=== PATIENT | male | born 1945 | race Caucasian/White ===

== ENCOUNTER 2016-05-12 20:26 | Emergency (ER) | payer MEDICARE, OTHER ==
[~2016-05-12] VITALS: Ht 182.9 cm; Wt 89.8 kg
[~2016-05-12 20:26] MED LIST: ACIPHEX; C250T; CLD600T; CYCL10TA9 PO; CYTOTEC; E400C; FENO160T PO; GLUCOSAMINE; HYDR-707 PO; HYZAAR; LEVO1CAP3 PO; LISI1TAB10 PO; LISI20TA PO; LISIN; MELO7.5T; METR500T PO; MULT-974 PO; MULT1TAB63; OMEP20CA12 PO; ONDA8TAB9 PO; OXYC-12 PO; PANT40TA2 PO; PNT40TEC PO; PRILOSEC; RIVA20TA PO; TMSL.4C PO; [UNRECOGNIZED DRUG - OTHER]; [UNRECOGNIZED DRUG - OTHER]
[2016-05-12 21:30] LABS: BILIRUBIN,URINE NEGATIVE (NEGATIVE); KETONES,URINE NEGATIVE (NEGATIVE); LEUKOCYTE ESTERASE ,URINE NEGATIVE (NEGATIVE); NITRITE,URINE NEGATIVE (NEGATIVE); PH,URINE 6 (5-9); PROTEIN,URINE NEGATIVE (NEGATIVE); UROBILINOGEN,URINE NORMAL (NORMAL)
[2016-05-12 21:32] LABS: BASOPHILS # (AUTO) 0.1 10^3/uL (0.0-0.1); BASOPHILS % (AUTO) 1 % (0-10); EOSINOPHILS # (AUTO) 0.2 10^3/uL (0.0-0.3); EOSINOPHILS % (AUTO) 3 % (0-10); LYMPHOCYTES # (AUTO) 2.2 X 10^3 (1.0-4.0); LYMPHOCYTES % (AUTO) 26 % (12-44); MEAN CORPUSCULAR HEMOGLOBIN 32 PG (25-34); MEAN CORPUSCULAR HGB CONC 35 G/DL (32-36); MEAN CORPUSCULAR VOLUME 93 FL (80-99); MEAN PLATELET VOLUME 9.5 FL (7.4-10.4); MONOCYTES # (AUTO) 0.7 X 10^3 (0.0-1.0); MONOCYTES % (AUTO) 8 % (0-12); NEUTROPHILS # (AUTO) 5.2 X 10^3 (1.8-7.8); NEUTROPHILS % (AUTO) 62 % (42-75); PLATELET COUNT 248 10^3/uL (130-400); RED BLOOD COUNT 4.17 10^6/uL (4.35-5.85); RED CELL DISTRIBUTION WIDTH 12.7 % (10.0-14.5); WHITE BLOOD COUNT 8.4 10^3/uL (4.3-11.0)
--- NOTE | 2016-05-12 21:36 | Diagnostic Imaging Report ---
INDICATION: Hypertension. EXAMINATION: PA and lateral chest. FINDINGS: Heart size and pulmonary vascularity are normal. Lungs are clear. There are no effusions or pneumothoraces. IMPRESSION: Negative chest. Dictated by: Dictated on workstation # [id number]
[2016-05-12 21:48] LABS: ALANINE AMINOTRANSFERASE 20 U/L (0-55); ANION GAP 10 MMOL/L (5-14); ASPARTATE AMINO TRANSFERASE 20 U/L (5-34); BILIRUBIN,TOTAL 0.3 MG/DL (0.1-1.0); BLOOD UREA NITROGEN 21 MG/DL (7-18); BUN/CREATININE RATIO 19; CALCIUM 9.3 MG/DL (8.5-10.1); CARBON DIOXIDE 23 MMOL/L (21-32); CHLORIDE 104 MMOL/L (98-107); CREATININE SERUM 1.11 MG/DL (0.60-1.30); GFR ESTIMATED > 60; GLUCOSE 110 MG/DL (70-105); MAGNESIUM 2.2 MG/DL (1.8-2.4); POTASSIUM 3.9 MMOL/L (3.6-5.0); SODIUM 137 MMOL/L (135-145); TOTAL PROTEIN 6.6 G/DL (6.4-8.2)
[2016-05-12 21:49] LABS: WBC,URINE RARE /HPF
[2016-05-12 21:54] LABS: TROPONIN I < 0.30 NG/ML (<0.30)
--- NOTE | 2016-05-12 21:56 | ED Cardiac General ---
History of Present Illness General Chief Complaint: Cardiac/General Problems Stated Complaint: BLOOD PRESSURE Nursing Triage Note: PT TO ED 8 W/ C/O HIGH BLOOD PRESSURE. REPORTS ACCORDING TO HIS MONITOR AT HOME IT WAS IN THE 150'S OVER 100'S. PT ALSO REPORTS "DULL"OCASIO ONSET LAST NOC. NO OTHER C/O, DENIES CP, SOB AT THIS TIME Source: patient Exam Limitations: no limitations History of Present Illness Time seen by provider: 20:38 Initial Comments This 71-year-old gentleman presents to the emergency room with complaints as outlined by nursing staff above. He had some chest pain yesterday but none today. He has had some dizziness and lightheadedness. Neuro exam is unremarkable. He reports some headache at the posterior base of the skull yesterday which now has improved. Now the area feels numb. Symptoms have been present for 3-4 days. During initial assessment blood pressure was evaluated by this provider. Bilateral upper extremity blood pressures were in the range of 110s/80s-90s. There is no change with standing. Allergies and Home Medications Allergies Coded Allergies: Penicillins (Verified Allergy, Unknown, 09/05/06) clindamycin (Verified Allergy, Unknown, 05/12/16) sulfamethoxazole (Unverified Allergy, Unknown, 06/17/13) trimethoprim (Unverified Allergy, Unknown, 06/17/13) Home Medications Doxycycline Hyclate 100 Mg Tablet, 100 MG PO BID, #20 Prescribed by: ALEX AMAYA on 05/12/16 2230 Fenofibrate 160 Mg Tablet, 160 MG PO DAILY, (Reported) Hctz/Lisinopril 1 Tab Tablet, 1 TAB PO DAILY, (Reported) Meclizine HCl 12.5 Mg Tablet, 12.5 MG PO Q8H PRN for DIZZINESS, #10 Prescribed by: ALEX AMAYA on 05/12/16 2232 Multivitamin 1 Each Tablet, 1 TAB PO DAILY, (Reported) Ondansetron Hcl 8 Mg/Tab Tab.rapdis, 8 MG PO Q8H PRN for NAUSEA, (Reported) Pantoprazole Sodium 40 Mg Tablet.dr, 40 MG PO DAILY, (Reported) Rivaroxaban 20 Mg Tablet, 20 MG PO DAILY, (Reported) Review of Systems Constitutional: no symptoms reported EENTM: No Symptoms Reported Respiratory: No Symptoms Reported Cardiovascular: See HPI Gastrointestinal: No Symptoms Reported Genitourinary: No Symptoms Reported Musculoskeletal: no symptoms reported Skin: no symptoms reported Psychiatric/Neurological: See HPI Endocrine: No Symptoms Reported Past Pdgogfe-Zvpadv-Pcppwj Hx Patient Social History Alcohol Use: Denies Use Recreational Drug Use: No Smoking Status: Never a Smoker Recent Foreign Travel: No Contact w/Someone Who Travel: No Recent Infectious Disease Expo: No Recent Hopitalizations: Yes Immunizations Up To Date Tetanus Booster (TDap): Unknown Date of Pneumonia Vaccine: Oct 26, 2014 Date of Influenza Vaccine: Oct 26, 2014 Surgeries HX Surgeries: Yes (ORTHO, HERNIA REPAIR, BACK SURGERY, T&A) Surgeries: Abdominal, Adenoidectomy, Cardiac (Cardiac catheterization March 2015 demonstrating normal coronary arteries), Orthopedic, Tonsillectomy Respiratory Hx Respiratory Disorders: No Cardiovascular Hx Cardiac Disorders: Yes Cardiac Disorders: Deep Vein Thrombosis, Hypertension Neurological Hx Neurological Disorders: Yes (NEUROPATHY IN FEET) Reproductive System Hx Reproductive Disorders: No Genitourinary Hx Genitourinary Disorders: No Gastrointestinal Hx Gastrointestinal Disorders: Yes Gastrointestinal Disorders: Ulcer Musculoskeletal Hx Musculoskeletal Disorders: Yes Musculoskeletal Disorders: Arthritis, Back Injury Endocrine Hx Endocrine Disorders: No HEENT HX ENT Disorders: Yes HEENT Disorders: Cataract Loss of Vision: Denies Hearing Impairment: Bilateral Hearing Aide Cancer Hx Cancer: No Psychosocial Hx Psychiatric Problems: No Integumentary HX Skin/Integumentary Disorder: No Blood Transfusions Hx Blood Disorders: Yes (POOR CIRCULATION LOWER EXTREMITY) Adverse Reaction to a Blood Tr: No Family Medical History Significant Family History: Heart Disease, Diabetes, Other Conditions/Hx ( Parkinson's) Family Medial History: Family history: Cardiovascular disease 19 FATHER G8 BROTHER G8 SISTER Family history: Diabetes mellitus 19 FATHER Parkinson's disease 19 MOTHER No Family History of: Family history: Alzheimer's disease Physical Exam Vital Signs Capillary Refill : Less Than 3 Seconds General Appearance: No Apparent Distress, WD/WN HEENT: PERRL/EOMI, Normal ENT Inspection, Pharynx Normal, Other (Dental erosion to the root of a left lower tooth. Slight oozing of blood noted at this location.) Neck: Normal Inspection, Supple Respiratory: Lungs Clear, Normal Breath Sounds, No Accessory Muscle Use, No Respiratory Distress Cardiovascular: Regular Rate, Rhythm, No Edema, No Murmur Gastrointestinal: Normal Bowel Sounds, Non Tender, Soft Extremity: Normal Inspection, No Calf Tenderness, No Pedal Edema Neurologic/Psychiatric: Alert, Oriented x3, No Motor/Sensory Deficits, Normal Mood/Affect, parts sales representative II-XII Norm as Tested Skin: Normal Color, Warm/Dry Progress/Results/Core Measures Results/Orders Lab Results Laboratory Tests Test 05/12/16 20:46 05/12/16 21:27 Range/Units White Blood Count 8.4 4.3-11.0 10^3/uL Red Blood Count 4.17 L 4.35-5.85 10^6/uL Hemoglobin 13.5 13.3-17.7 G/DL Hematocrit 39 L 40-54 % Mean Corpuscular Volume 93 80-99 FL Mean Corpuscular Hemoglobin 32 25-34 PG Mean Corpuscular Hemoglobin Concent 35 32-36 G/DL Red Cell Distribution Width 12.7 10.0-14.5 % Platelet Count 248 130-400 10^3/uL Mean Platelet Volume 9.5 7.4-10.4 FL Neutrophils (%) (Auto) 62 42-75 % Lymphocytes (%) (Auto) 26 12-44 % Monocytes (%) (Auto) 8 0-12 % Eosinophils (%) (Auto) 3 0-10 % Basophils (%) (Auto) 1 0-10 % Neutrophils # (Auto) 5.2 1.8-7.8 X 10^3 Lymphocytes # (Auto) 2.2 1.0-4.0 X 10^3 Monocytes # (Auto) 0.7 0.0-1.0 X 10^3 Eosinophils # (Auto) 0.2 0.0-0.3 10^3/uL Basophils # (Auto) 0.1 0.0-0.1 10^3/uL Sodium Level 137 135-145 MMOL/L Potassium Level 3.9 3.6-5.0 MMOL/L Chloride Level 104 98-107 MMOL/L Carbon Dioxide Level 23 21-32 MMOL/L Anion Gap 10 5-14 MMOL/L Blood Urea Nitrogen 21 H 7-18 MG/DL Creatinine 1.11 0.60-1.30 MG/DL Estimat Glomerular Filtration Rate > 60 BUN/Creatinine Ratio 19 Glucose Level 110 H 70-105 MG/DL Calcium Level 9.3 8.5-10.1 MG/DL Magnesium Level 2.2 1.8-2.4 MG/DL Total Bilirubin 0.3 0.1-1.0 MG/DL Aspartate Amino Transf (AST/SGOT) 20 5-34 U/L Alanine Aminotransferase (ALT/SGPT) 20 0-55 U/L Alkaline Phosphatase 45 40-136 U/L Troponin I < 0.30 <0.30 NG/ML Total Protein 6.6 6.4-8.2 G/DL Albumin 4.0 3.2-4.5 G/DL Urine Color YELLOW Urine Clarity CLEAR Urine pH 6 5-9 Urine Specific [place] 1.015 L 1.016-1.022 Urine Protein NEGATIVE NEGATIVE Urine Glucose (UA) NEGATIVE NEGATIVE Urine Ketones NEGATIVE NEGATIVE Urine Nitrite NEGATIVE NEGATIVE Urine Bilirubin NEGATIVE NEGATIVE Urine Urobilinogen NORMAL NORMAL MG/DL Urine Leukocyte Esterase NEGATIVE NEGATIVE Urine RBC (Auto) NEGATIVE NEGATIVE Urine RBC NONE /HPF Urine WBC RARE /HPF Urine Crystals NONE /LPF Urine Bacteria NEGATIVE /HPF Urine Casts NONE /LPF Urine Mucus NEGATIVE /LPF Urine Culture Indicated NO My Orders Orders - ALEX HOYOS MD Cbc With Automated Diff (05/12/16 21:20) Comprehensive Metabolic Panel (05/12/16 21:20) Magnesium (05/12/16 21:20) Troponin I (05/12/16 21:20) Ua Culture If Indicated (05/12/16 21:20) Saline Lock/Iv-Start (05/12/16 21:20) Ekg Tracing (05/12/16 21:20) Monitor-Rhythm Ecg Trace Only (05/12/16 21:20) Chest Pa/Lat (2 View) (05/12/16 21:20) Clindamycin Capsule (Cleocin Capsule) (05/12/16 22:30) Doxycycline Hyclate Tablet (Vibramycin T (05/12/16 22:30) Medications Given in ED Vital Signs/I&O Blood Pressure Mean: 111 Progress Note : Progress Note Workup was relatively unremarkable. Patient was dismissed home with improved blood pressure. He was advised to follow-up with his primary care provider and obtain a carotid ultrasound. Headache had subsided and he was in no significant pain at the time of dismissal. CT of the head was discussed as a possible further diagnostic tool as patient is on Xarelto. However, patient gives no history of head injury and symptoms are improving. CT was therefore not pursued. Patient was noted to have a significant dental erosion on the left lower jaw with some mild oozing of blood. This could certainly be a cause of infection, dizziness, and headache. He was advised to see a dentist as soon as possible. Antibiotic therapy was initiated. He was advised to skip his next Xarelto dose if bleeding does not stop by morning. ECG Initial ECG Impression Date: May 12, 2016 Initial ECG Impression Time: 20:38 Initial ECG Rate: 71 Initial ECG Rhythm: Normal Sinus Initial ECG Intervals: Normal Initial ECG Impression: Normal Comment Normal sinus rhythm with no ST elevation or depression. No abnormal intervals or axis deviation. Diagnostic Imaging Diagonstic Imaging: Xray Plain Films/CT/US/NM/MRI: chest Comments Chest x-ray viewed by me and report reviewed. See report below: NAME: KELLIE FLETCHER [facility] REC#: [id number] PT STATUS: REG ER : 1945 PHYSICIAN: ALEX HOYOS MD ADMIT DATE: 05/12/16/ER Draft Date of Exam:05/12/16 CHEST PA/LAT (2 VIEW) INDICATION: Hypertension. EXAMINATION: PA and lateral chest. FINDINGS: Heart size and pulmonary vascularity are normal. Lungs are clear. There are no effusions or pneumothoraces. IMPRESSION: Negative chest. Dictated on workstation # [id number] Dict: 05/12/162133 Trans: 05/12/162135 [facility] [id number] Interpreted by: MARIBELL SARKAR Departure Impression Impression: Primary Impression: Dizziness Additional Impressions: Hypertension Qualified Codes: I10 - Essential (primary) hypertension Dental erosion Oral bleeding Disposition: HOME, SELF-CARE Condition: Improved Departure-Patient Inst. Decision time for Depature: 22:27 Referrals: MARK MCFARLANE DO (PCP) Primary Care Physician REGGIE ESPANA (Family) Primary Care Physician Patient Instructions: High Blood Pressure (DC) Add. Discharge Instructions: Complete antibiotics as prescribed for your dental erosion. Follow-up with a dentist as soon as possible. If your tooth is still bleeding in the morning, skip Xarelto until bleeding stops. Return to care if bleeding becomes more severe. Follow-up with your primary care provider soon as possible for your dizziness and high blood pressure. Discuss obtaining a carotid ultrasound study with your primary care provider. Return to care with worsening or new symptoms. Return to care if you have a systolic blood pressure greater than 180 or diastolic blood pressure greater than 115. Avoid excessive salt or stimulants such as caffeine. Stay well-hydrated. Take Tylenol up to 1000 mg every 6 hours as needed for pain. You may try meclizine as prescribed for dizziness. All discharge instructions reviewed with patient and/or family. Voiced understanding. Scripts Meclizine HCl (Meclizine HCl) 12.5 Mg Tablet 12.5 MG PO Q8H Y for DIZZINESS, #10 TAB Prov: ALEX HOYOS MD 05/12/16 Doxycycline Hyclate (Doxycycline Hyclate) 100 Mg Tablet 100 MG PO BID, #20 TAB Prov: ALEX HOYOS MD 05/12/16 Copy Copies To 1: MARK MCFARLANE JOSHUA T MD May 12, 2016 21:56
[2016-05-12] MEDS ORDERED: DOXY100T2 PO (22:30)
[2016-05-12] MEDS ORDERED: DOXYCYCLINE 100 MG (VIBRAMYCIN) TABLET PO ONE (22:30)
[2016-05-12] MEDS ORDERED: CLINDAMYCIN 150 MG (CLEOCIN) CAP PO ONE (22:30)
[2016-05-12] MEDS ORDERED: MECL12.579 PO (22:32)
[2016-05-12 22:36] VITALS: BP 113/92
--- OUTSIDE RECORDS SUMMARY | 2016-06-05 09:59 | XMS REPORT ---
Author REGGIE Hinton [facility] eClinicalWorks Address Unknown Phone Unavailable Care Team Providers Care Spring Winder Name Role Phone REGGIE ESPANA CP Unavailable Allergies, Adverse Reactions, Alerts Substance Reaction Event Type Penicillin V Potassium Info Not Available Drug Allergy Clindamycin HCl Info Not Available Drug Allergy Bactrim DS Info Not Available Drug Allergy Problems Problem Type Condition Code Onset Dates Condition Status Problem GERD (gastroesophageal reflux disease) K21.9 Active Problem HTN (hypertension) I10 Active Problem Hypercholesterolemia E78.0 Active Problem Restless legs G25.81 Active Problem Chronic osteoarthritis M19.90 Active Problem BPH (benign prostatic hyperplasia) N40.0 Active Problem Superficial thrombosis of right lower extremity I82.811 Active Problem Muscle spasm of both lower legs M62.838 Active Problem Chest pain R07.9 Active Problem Varicose veins I86.8 Active Assessment Restless legs G25.81 Active Assessment Bronchitis J40 Active Problem PPV23 (PNEUMOVAX) DX V03.82 Active Problem ZOSTAVAX DX V05.8 Active Medications Medication Code System Code Instructions Start Date End Date Status Dosage Fenofibrate [facility] [address]-29 160 MG Orally Once a day 1 tablet with a meal Promethazine-Codeine [facility] [address]-31 6.25-10 MG/5ML Orally every 6 hrs Feb 24, 2015 5 ml as needed Azithromycin [facility] [address]-16 250 MG Orally Once a day Feb 24, 2015 Mar 01, 2015 2 tablets on the first day, then 1 tablet daily for 4 days Lisinopril-Hydrochlorothiazide [facility] [address]-48 20-25 MG Orally Once a day keep appt on 08/02/14 with [address] [facility] [address]-15 15 MG Orally 2 times a day Dec 22, 2014 1 tablet with food Mobic [facility] [address]-71 7.5 MG Orally 2 times a day Dec 21, 2014 Mar 21, [address] [facility] [address]-80 20 MG Orally Once a day [address] [facility] [address]-74 0.4 MG Orally Once a day April 29, 2015 1 capsule 30 minutes after the same meal each day Procedures Procedure Coding System Code Date Office Visit, Est Pt., Level 4 CPT-4 58978 Feb 24, 2015 DEPO MEDROL 40 MG/ML CPT-4 J1030 Feb 24, 2015 [facility] ESTABLISHED PATIENT CPT-4 G0467 Feb 24, 2015 DEXAMETHASONE 4MG/ML (PER 1 MG) CPT-4 J1100 Feb 24, 2015 THER/PROPH/DIAG INJ, SC/IM CPT-4 50362 Feb 24, 2015 Vital Signs Date/Time: Feb 24, 2015 Temperature 97.4 F Weight 201.8 lbs Height 72 in BMI 27.37 Index Blood Pressure Diastolic 78 mmHg Blood Pressure Systolic 122 mmHg Cardiac Monitoring Heart Rate 70 bpm Results No Known Results Summary Purpose eClinicalWorks Submission
--- OUTSIDE RECORDS SUMMARY | 2016-06-05 09:59 | XMS REPORT ---
Author Author REGGIE ESPANA [facility] eClinicalWorks Address Unknown Phone Unavailable Care Team Providers Care Search Marketing Specialist Name Role Phone REGGIE ESPANA CP Unavailable Allergies, Adverse Reactions, Alerts Substance Reaction Event Type Penicillin V Potassium Info Not Available Drug Allergy Clindamycin HCl Info Not Available Drug Allergy Bactrim DS Info Not Available Drug Allergy Problems Problem Type Condition Code Onset Dates Condition Status Problem Hypertrophy (benign) of prostate without urinary obstruction and other lower urinary tract symptoms [LUTS] 600.00 Active Problem Unspecified constipation 564.00 Active Problem Need for prophylactic vaccination and inoculation, Influenza V04.81 Active Problem PPV23 (PNEUMOVAX) DX V03.82 Active Problem Other specified pre-operative examination V72.83 Active Problem ZOSTAVAX DX V05.8 Active Problem Acute bronchitis 466.0 Active Problem Contact or exposure to other viral diseases V01.79 Active Problem Other abnormal blood chemistry 790.6 Active Problem Spasm of muscle 728.85 Active Problem Unspecified hearing loss 389.9 Active Problem Unspecified tinnitus 388.30 Active Problem Cough 786.2 Active Problem Chronic rhinitis 472.0 Active Problem Unspecified hemorrhoids without mention of complication 455.6 Active Problem Abdominal pain, unspecified site 789.00 Active Problem HTN (hypertension) I10 Active Problem Hypercholesterolemia E78.0 Active Problem Cramp of limb 729.82 Active Problem Unspecified local infection of skin and subcutaneous tissue 686.9 Active Problem Muscle spasm of both lower legs M62.838 Active Problem Other malaise and fatigue 780.79 Active Problem Essential hypertension 401.9 Active Problem Hypercholesterolemia 272.0 Active Problem GERD (gastroesophageal reflux disease) K21.9 Active Problem Needs flu shot Z23 Active Assessment HTN (hypertension) I10 Active Problem Dehydration 276.51 Active Assessment Muscle spasm of both lower legs M62.838 Active Problem Other and unspecified hyperlipidemia 272.4 Active Assessment GERD (gastroesophageal reflux disease) K21.9 Active Problem Solitary pulmonary nodule 793.11 Active Assessment Hypercholesterolemia E78.0 Active Problem Closed fracture of lumbar vertebra without mention of spinal cord injury 805.4 Active Problem Routine general medical examination at health care facility V70.0 Active Assessment Needs flu shot Z23 Active Problem Pain in joint, lower leg 719.46 Active Problem Open wound of finger(s), without mention of complication 883.0 Active Problem Esophageal reflux 530.81 Active Medications Medication Code System Code Instructions Start Date End Date Status Dosage Protonix [facility] [address]-81 20 MG Orally Once a day 2 tablets Flomax [facility] [address]-74 0.4 MG Orally Once a day April 29, 2015 1 capsule 30 minutes after the same meal each day Fenofibrate [facility] [address]-13 160 MG Orally Once a day 1 tablet with a meal Lisinopril-Hydrochlorothiazide [facility] [address]-16 20-25 MG Orally Once a day keep appt on 08/02/14 with 1 tablet Requip [facility] [address]-32 2 MG Orally Once a day Nov 18, 2014 1 tablet 1 to 3 hours before bedtime Procedures Procedure Coding System Code Date SINGLE IMMUNIZATION ADMIN CPT-4 77126 Nov 18, 2014 FLUZONE TRIV HIGH DOSE (65 & UP)-SANOFI PASTEUR-2014 CPT-4 17170 Nov 18, 2014 Vital Signs Date/Time: Nov 18, 2014 Temperature 97.6 F Weight 206 lbs Height 72 in BMI 27.94 Index Blood Pressure Diastolic 88 mmHg Blood Pressure Systolic 150 mmHg Cardiac Monitoring Heart Rate 78 bpm Results No Known Results Immunizations Vaccine Administration Date FLUZONE TRIV HIGH DOSE (65 & UP)-SANOFI PASTEUR-2014Nov 18, 2014 Summary Purpose eClinicalWorks Submission
--- OUTSIDE RECORDS SUMMARY | 2016-06-05 09:59 | XMS REPORT ---
Author Author REGGIE ESPANA [facility] eClinicalWorks Address Unknown Phone Unavailable Care Team Providers Care Acid Splicer Name Role Phone REGGIE ESPANA CP Unavailable Allergies No Known Allergies Problems Problem Type Condition Code Onset Dates Condition Status Problem PPV23 (PNEUMOVAX) DX V03.82 Active Problem Hypertrophy (benign) of prostate without urinary obstruction and other lower urinary tract symptoms [LUTS] 600.00 Active Problem Other specified pre-operative examination V72.83 Active Problem Need for prophylactic vaccination and inoculation, Influenza V04.81 Active Problem ZOSTAVAX DX V05.8 Active Problem Acute bronchitis 466.0 Active Problem Contact or exposure to other viral diseases V01.79 Active Problem Other abnormal blood chemistry 790.6 Active Problem Unspecified hearing loss 389.9 Active Problem Unspecified tinnitus 388.30 Active Problem Cough 786.2 Active Problem Chronic rhinitis 472.0 Active Problem Other malaise and fatigue 780.79 Active Problem Abdominal pain, unspecified site 789.00 Active Problem Hypercholesterolemia 272.0 Active Problem Unspecified hemorrhoids without mention of complication 455.6 Active Problem Muscle spasm of both lower legs M62.838 Active Problem HTN (hypertension) I10 Active Problem Solitary pulmonary nodule 793.11 Active Problem Cramp of limb 729.82 Active Problem Superficial thrombosis of right lower extremity I82.811 Active Problem Unspecified local infection of skin and subcutaneous tissue 686.9 Active Problem Needs flu shot Z23 Active Problem Essential hypertension 401.9 Active Problem Hypercholesterolemia E78.0 Active Problem GERD (gastroesophageal reflux disease) K21.9 Active Problem Other and unspecified hyperlipidemia 272.4 Active Problem Unspecified constipation 564.00 Active Problem Open wound of finger(s), without mention of complication 883.0 Active Problem Closed fracture of lumbar vertebra without mention of spinal cord injury 805.4 Active Problem Dehydration 276.51 Active Problem Pain in joint, lower leg 719.46 Active Problem Spasm of muscle 728.85 Active Problem Esophageal reflux 530.81 Active Problem Routine general medical examination at [facility] V70.0 Active Medications No Known Medications Results No Known Results Summary Purpose eClinicalWorks Submission
--- OUTSIDE RECORDS SUMMARY | 2016-06-05 09:59 | XMS REPORT ---
Author REGGIE Hinton [facility] eClinicalWorks Address Unknown Phone Unavailable Care Team Providers Care Authorization Representative Name Role Phone REGGIE ESPANA Unavailable Allergies, Adverse Reactions, Alerts Substance Reaction [...] Active Problem Varicose veins I86.8 Active Assessment Hypercholesterolemia E78.00 Active Assessment Chronic osteoarthritis M19.90 Active Assessment GERD (gastroesophageal reflux disease) K21.9 Active Assessment HTN (hypertension) I10 Active Assessment BPH (benign prostatic hyperplasia) N40.0 Active Problem PPV23 (PNEUMOVAX) DX V03.82 Active Assessment Superficial thrombosis of right lower extremity I82.811 Active Problem ZOSTAVAX DX V05.8 Active Medications Medication Code System Code Instructions Start Date End Date Status Dosage Xarelto [facility] [address]-61 15 MG Orally 2 times a day Dec 22, 2014 1 tablet with food Fenofibrate [facility] [address]-73 160 MG Orally Once a day 1 tablet with a meal Protonix [facility] [address]-58 20 MG Orally Once a day 2 tablets Lisinopril-Hydrochlorothiazide [facility] [address]-57 20-25 MG Orally Once a day keep appt on 08/02/14 with 1 tablet Mobic [facility] 64153193562 7.500MG Orally 2 times a day 1 tablet Procedures Procedure Coding System Code Date Office Visit, Est Pt., Level 4 CPT-4 99044 Dec 30, 2015 [facility] VISIT ESTABLISHED PATIENT CPT-4 G0467 Dec 30, 2015 Vital Signs Date/Time: Dec 30, 2015 Cardiac Monitoring Heart Rate 78 bpm Weight 200.7 lbs Height 72 in BMI 27.22 Index Blood Pressure Diastolic 78 mmHg Blood Pressure Systolic 114 mmHg Results No Known Results Summary Purpose eClinicalWorks Submission
--- OUTSIDE RECORDS SUMMARY | 2016-06-05 10:00 | XMS REPORT ---
Author Author REGGIE ESPANA [facility] eClinicalWorks Address Unknown Phone Unavailable Care Team Providers Care Money Laundering Investigator Name Role Phone REGGIE ESPANA Unavailable Allergies No Known Allergies Problems Problem [...] Active Problem Varicose veins I86.8 Active Assessment Superficial thrombosis of right lower extremity I82.811 Active Problem PPV23 (PNEUMOVAX) DX V03.82 Active Problem ZOSTAVAX DX V05.8 Active Medications Medication Code System Code Instructions Start Date End Date Status Dosage Xarelto [facility][NOTE 2] [address]-53 15 MG Orally 2 times a day Dec 22, 2014 1 tablet with food Results No Known Results Summary Purpose eClinicalWorks Submission
--- OUTSIDE RECORDS SUMMARY | 2016-06-05 10:00 | XMS REPORT ---
Author Author REGGIE ESPANA [facility] eClinicalWorks Address Unknown Phone Unavailable Care Team Providers Care Network Security Administrator Name Role Phone REGGIE ESPANA CP Unavailable Allergies No Known Allergies Problems Problem Type Condition Code Onset Dates Condition Status Problem Need for prophylactic vaccination and inoculation, Influenza V04.81 Active Problem PPV23 (PNEUMOVAX) DX V03.82 Active Problem ZOSTAVAX DX V05.8 Active Problem Other specified pre-operative examination V72.83 Active Problem Acute bronchitis 466.0 Active Problem Contact or exposure to other viral diseases V01.79 Active Problem Other abnormal blood chemistry 790.6 Active Problem Unspecified hearing loss 389.9 Active Problem Cough 786.2 Active Problem Chronic rhinitis 472.0 Active Problem Other malaise and fatigue 780.79 Active Problem Abdominal pain, unspecified site 789.00 Active Problem Unspecified local infection of skin and subcutaneous tissue 686.9 Active Problem Unspecified hemorrhoids without mention of complication 455.6 Active Problem Essential hypertension 401.9 Active Problem Hypercholesterolemia 272.0 Active Problem Superficial thrombosis of right lower extremity I82.811 Active Problem Muscle spasm of both lower legs M62.838 Active Problem Closed fracture of lumbar vertebra without mention of spinal cord injury 805.4 Active Problem Solitary pulmonary nodule 793.11 Active Problem Varicose veins I86.8 Active Problem Cramp of limb 729.82 Active Problem GERD (gastroesophageal reflux disease) K21.9 Active Problem Needs flu shot Z23 Active Problem HTN (hypertension) I10 Active Problem Hypercholesterolemia E78.0 Active Problem Unspecified constipation 564.00 Active Problem Open wound of finger(s), without mention of complication 883.0 Active Problem Hypertrophy (benign) of prostate without urinary obstruction and other lower urinary tract symptoms [LUTS] 600.00 Active Problem Esophageal reflux 530.81 Active Problem Dehydration 276.51 Active Problem Other and unspecified hyperlipidemia 272.4 Active Problem Spasm of muscle 728.85 Active Problem Unspecified tinnitus 388.30 Active Problem Routine general medical examination at health care facility V70.0 Active Problem Pain in joint, lower leg 719.46 Active Medications Medication Code System Code Instructions Start Date End Date Status Dosage Xarelto [facility] [place] [address]-54 15 MG Orally 2 times a day Dec 22, 2014 1 tablet with food Results No Known Results Summary Purpose eClinicalWorks Submission
--- OUTSIDE RECORDS SUMMARY | 2016-06-05 10:00 | XMS REPORT ---
Author Author REGGIE ESPANA [facility] eClinicalWorks Address Unknown Phone Unavailable Care Team Providers Care Chemical Preparer Name Role Phone REGGIE ESPANA CP Unavailable [...] Instructions Start Date End Date Status Dosage Requip [facility] 13381790943 2 MG Orally Once a day 1 tablet 1 to 3 hours before bedtime Results No Known Results Summary Purpose eClinicalWorks Submission
--- OUTSIDE RECORDS SUMMARY | 2016-06-05 10:00 | XMS REPORT ---
Author REGGIE Hinton [facility] eClinicalWorks Address Unknown Phone Unavailable Care Team Providers Care Industrial Ecologist Name Role Phone REGGIE ESPANA CP Unavailable [...] Active Problem Varicose veins I86.8 Active Assessment BPH (benign prostatic hyperplasia) N40.0 Active Assessment Restless legs G25.81 Active Assessment Chest pain R07.9 Active Assessment Chronic osteoarthritis M19.90 Active Assessment GERD (gastroesophageal reflux disease) K21.9 Active Assessment Hypercholesterolemia E78.0 Active Assessment Varicose veins I86.8 Active Problem PPV23 (PNEUMOVAX) DX V03.82 Active Assessment Superficial thrombosis of right lower extremity I82.811 Active Problem ZOSTAVAX DX V05.8 Active Medications Medication Code System Code Instructions Start Date End Date Status Dosage Fenofibrate [facility] [address]-24 160 MG Orally Once a day 1 tablet with a meal Protonix [facility] [address]-09 20 MG Orally Once a day 2 tablets Mobic [facility] [address]-83 7.5 MG Orally 2 times a day Dec 21, 2014 Mar 21, 2015 1 tablet Lisinopril-Hydrochlorothiazide [facility] [address]-61 20-25 MG Orally Once a day keep appt on 08/02/14 with 1 tablet Flomax [facility] [address]-85 0.4 MG Orally Once a day April 29, 2015 1 capsule 30 minutes after the same meal each day Requip [facility] 22200221062 2 MG Orally Once a day 1 tablet 1 to 3 hours before bedtime Xarelto [facility] [address]-46 15 MG Orally 2 times a day Dec 22, 2014 1 tablet with food Procedures Procedure Coding System Code Date [facility] VISIT ESTABLISHED PATIENT CPT-4 G0467 Feb 07, 2015 Office Visit, Est Pt., Level 4 CPT-4 79502 Feb 07, 2015 [facility] NOBLL Feb 07, 2015 ELECTROCARDIOGRAM, TRACING CPT-4 71060 Feb 07, 2015 VENIPUNCT, ROUTINE* CPT-4 14479 Feb 07, 2015 Vital Signs Date/Time: Feb 07, 2015 Temperature 97.6 F Weight 201.2 lbs Height 72 in BMI 27.28 Index Blood Pressure Diastolic 82 mmHg Blood Pressure Systolic 118 mmHg Cardiac Monitoring Heart Rate 68 bpm Results Name Result Date Reference Range Unit Abnormality Flag LIPID PANEL ----HDL Cholesterol 52 86553282 >39 mg/dL ----VLDL Cholesterol Kam 26 76285526 5-40 mg/dL ----LDL Cholesterol Calc 81 39088674 0-99 mg/dL ----Cholesterol, Total 159 39862124 100-199 mg/dL ----Triglycerides 129 82647679 0-149 mg/dL CMP ----Globulin, Total 2.5 91585526 1.5-4.5 g/dL ----eGFR If Africn Am 80 70552628 >59 mL/min/1.73 ----eGFR If NonAfricn Am 69 61805777 >59 mL/min/1.73 ----Albumin, Serum 4.7 20150207 3.6-4.8 g/dL ----Sodium, Serum 140 93212282 134-144 mmol/L ----Protein, Total, Serum 7.2 93962881 6.0-8.5 g/dL ----BUN/Creatinine Ratio 17 20150207 10-22 ----Calcium, Serum 9.7 21022560 8.6-10.2 mg/dL ----AST (SGOT) 21 20150207 0-40 IU/L ----Glucose, Serum 86 71997091 65-99 mg/dL ----Alkaline Phosphatase, S 42 20150207 39-117 IU/L ----Bilirubin, Total 0.5 20150207 0.0-1.2 mg/dL ----Creatinine, Serum 1.10 20150207 0.76-1.27 mg/dL ----A/G Ratio 1.9 20150207 1.1-2.5 ----BUN 19 20150207 8-27 mg/dL ----Carbon Dioxide, Total 26 20150207 18-29 mmol/L ----ALT (SGPT) 27 45176566 0-44 IU/L ----Potassium, Serum 4.4 20150207 3.5-5.2 mmol/L ----Chloride, Serum 100 27236967 97-108 mmol/L ROUTINE VENIPUNCTURE CBC ----MCHC 34.0 94411380 31.5-35.7 g/dL ----MCH 31.0 60684276 26.6-33.0 pg ----Platelets 289 18466799 150-379 x10E3/uL ----RDW 12.8 53300102 12.3-15.4 % ----Immature Granulocytes 1 19314267 % ----Immature Grans (Abs) 0.1 36153590 0.0-0.1 x10E3/uL ----Lymphs 28 11927000 % ----Monocytes 9 65617609 % ----Neutrophils 58 97450238 % ----Neutrophils (Absolute) 4.4 56928792 1.4-7.0 x10E3/uL ----Hematocrit 45.0 16671153 37.5-51.0 % ----Lymphs (Absolute) 2.1 73739061 0.7-3.1 x10E3/uL ----MCV 91 30566951 79-97 fL ----RBC 4.93 45185804 4.14-5.80 x10E6/uL ----Eos 3 73195884 % ----Basos 1 94846271 % ----Hemoglobin 15.3 90950062 12.6-17.7 g/dL ----Baso (Absolute) 0.1 20362607 0.0-0.2 x10E3/uL ----WBC 7.5 52706355 3.4-10.8 x10E3/uL ----Monocytes(Absolute) 0.7 25075647 0.1-0.9 x10E3/uL ----Eos (Absolute) 0.2 20150207 0.0-0.4 x10E3/uL Summary Purpose eClinicalWorks Submission
--- OUTSIDE RECORDS SUMMARY | 2016-06-05 10:00 | XMS REPORT ---
Author REGGIE Hinton [facility] eClinicalWorks Address Unknown Phone Unavailable Care Team Providers Care Transit Planning Director Name Role Phone REGGIE ESPANA CP Unavailable [...] Active Problem Varicose veins I86.8 Active Assessment Encounter for immunization Z23 Active Problem PPV23 (PNEUMOVAX) DX V03.82 Active Problem ZOSTAVAX DX V05.8 Active Medications No Known Medications Procedures Procedure Coding System Code Date SINGLE IMMUNIZATION ADMIN CPT-4 57296 Dec 12, 2015 FLUZONE HIGH DOSE 65 AND UP 2015 CPT-4 04292 Dec 12, 2015 Results No Known Results Immunizations Vaccine Administration Date FLUZONE HIGH DOSE 65 AND UP 2015Dec 12, 2015 Summary Purpose eClinicalWorks Submission
--- OUTSIDE RECORDS SUMMARY | 2016-06-05 10:00 | XMS REPORT ---
Author REGGIE Hinton [facility] eClinicalWorks Address Unknown Phone Unavailable Care Team Providers Care Chain Maker Loom Control Name Role Phone REGGIE ESPNAA CP Unavailable Allergies, Adverse Reactions, Alerts Substance [...] Problem Needs flu shot Z23 Active Problem Dehydration 276.51 Active Assessment DVT (deep venous thrombosis) I82.409 Active Problem Other and unspecified hyperlipidemia 272.4 Active Problem Solitary pulmonary nodule 793.11 Active Problem Closed fracture of lumbar vertebra without mention of spinal cord injury 805.4 Active Problem Routine general medical examination at health care facility V70.0 Active Problem Pain in joint, lower leg 719.46 Active Problem Open wound of finger(s), without mention of complication 883.0 Active Problem Esophageal reflux 530.81 Active Medications Medication Code System Code Instructions Start Date End Date Status Dosage Mobic [facility] [address]-60 7.5 MG Orally 2 times a day Dec 21, 2014 Mar 21, 2015 1 tablet Lisinopril-Hydrochlorothiazide [facility] [address]-31 20-25 MG Orally Once a day keep appt on 08/02/14 with 1 tablet Requip [facility] 93067759732 2 MG Orally Once a day 1 tablet 1 to 3 hours before bedtime Fenofibrate [facility] [address]-64 160 MG Orally Once a day 1 tablet with a meal Protonix [facility] [address]-17 20 MG Orally Once a day 2 tablets Vital Signs Date/Time: Dec 21, 2014 Temperature 98.1 F Weight 199.8 lbs Height 72 in BMI 27.09 Index Blood Pressure Diastolic 82 mmHg Blood Pressure Systolic 124 mmHg Cardiac Monitoring Heart Rate 80 bpm Results Name Result Date Reference Range Unit Abnormality Flag Lower Extremity Ultrasound Summary Purpose eClinicalWorks Submission
--- OUTSIDE RECORDS SUMMARY | 2016-06-05 10:00 | XMS REPORT ---
Author Author REGGIE ESPANA [facility] eClinicalWorks Address Unknown Phone Unavailable Care Team Providers Care Specialty Molder Name Role Phone REGGIE ESPANA CP Unavailable [...] 600.00 Active Problem Esophageal reflux 530.81 Active Assessment HTN (hypertension) I10 Active Problem Dehydration 276.51 Active Assessment Superficial thrombosis of right lower extremity I82.811 Active Problem Other and unspecified hyperlipidemia 272.4 Active Problem Spasm of muscle 728.85 Active Assessment Varicose veins I86.8 Active Problem Unspecified tinnitus 388.30 Active Problem Routine general medical examination at health care facility V70.0 Active Problem Pain in joint, lower leg 719.46 Active Medications Medication Code System Code Instructions Start Date End Date Status Dosage Lisinopril-Hydrochlorothiazide [facility] [address]-81 20-25 MG Orally Once a day keep appt on 08/02/14 with 1 tablet Fenofibrate [facility] [address]-64 160 MG Orally Once a day 1 tablet with a meal Requip [facility] 85771428958 2 MG Orally Once a day 1 tablet 1 to 3 hours before bedtime Xarelto [facility] [address]-68 15 MG Orally 2 times a day Dec 22, 2014 as directed Mobic [facility] [address]-10 7.5 MG Orally 2 times a day Dec 21, 2014 Mar 21, 2015 1 tablet Protonix [facility] [address]-93 20 MG Orally Once a day 2 tablets Procedures Procedure Coding System Code Date Office Visit, Est Pt., Level 4 CPT-4 05806 Jan 05, 2015 [facility] VISIT ESTABLISHED PATIENT CPT-4 G0467 Jan 05, 2015 Vital Signs Date/Time: Jan 05, 2015 Temperature 97.9 F Weight 201.9 lbs Height 72 in BMI 27.38 Index Blood Pressure Diastolic 88 mmHg Blood Pressure Systolic 122 mmHg Cardiac Monitoring Heart Rate 80 bpm Results No Known Results Summary Purpose eClinicalWorks Submission
--- OUTSIDE RECORDS SUMMARY | 2016-06-05 10:01 | XMS REPORT ---
Author REGGIE Hinton [facility] eClinicalWorks Address Unknown Phone Unavailable Care Team Providers Care Solar Consultant Name Role Phone REGGIE ESPANA CP Unavailable [...] Problem GERD (gastroesophageal reflux disease) K21.9 Active Assessment Superficial thrombosis of right lower [...] examination at health care facility V70.0 Active Medications Medication Code System Code Instructions Start Date End Date Status Dosage Xarelto [facility] [address]-68 15 MG Orally 2 times a day Dec 22, 2014 as directed Lisinopril-Hydrochlorothiazide [facility] [address]-88 20-25 MG Orally Once a day keep appt on 08/02/14 with 1 tablet Mobic [facility] [address]-66 7.5 MG Orally 2 times a day Dec 21, 2014 Mar 21, 2015 1 tablet Fenofibrate [facility] [address]-32 160 MG Orally Once a day 1 tablet with a meal Requip [facility] 86319129118 2 MG Orally Once a day 1 tablet 1 to 3 hours before bedtime Protonix [facility] [address]-17 20 MG Orally Once a day 2 tablets Procedures Procedure Coding System Code Date Office Visit, Est Pt., Level 2 CPT-4 11859 Dec 22, 2014 [facility] VISIT ESTABLISHED PATIENT CPT-4 G0467 Dec 22, 2014 Vital Signs Date/Time: Dec 22, 2014 Temperature 97.6 F Weight 202.2 lbs Height 72 in BMI 27.42 Index Blood Pressure Diastolic 84 mmHg Blood Pressure Systolic 126 mmHg Cardiac Monitoring Heart Rate 61 bpm Results No Known Results Summary Purpose eClinicalWorks Submission
--- OUTSIDE RECORDS SUMMARY | 2016-06-05 10:02 | XMS REPORT ---
Author Author REGGIE ESPANA [facility] eClinicalWorks Address Unknown Phone Unavailable Care Team Providers Care Director Of Enterprise Architecture Name Role Phone REGGIE ESPANA CP Unavailable [...]
--- OUTSIDE RECORDS SUMMARY | 2016-06-05 10:02 | XMS REPORT | Continuity of Care Document ---
Author Author [facility] Address Unknown Phone Unavailable Allergies Active Description Code Type Severity Reaction Onset Reported/Identified Relationship to Patient Clinical Status Yes Penicillins [id number] Drug Allergy Unknown N/A 09/05/2006 Yes clindamycin Drug Allergy N/A N/A 06/30/2008 Yes Penicillins Drug Allergy N/A N/A 06/30/2008 Yes clindamycin Drug Allergy 06/30/2008 Yes Penicillins Drug Allergy 06/30/2008 Yes Bactrim DS Drug Allergy N/A N/A 12/19/2010 Yes Bactrim DS Drug Allergy 12/19/2010 Yes sulfamethoxazole [id number] Drug Allergy Unknown N/A 06/17/2013 Yes trimethoprim [id number] Drug Allergy Unknown N/A 06/17/2013 Yes clindamycin [id number] Drug Allergy Unknown N/A 05/12/2016 Medications Problems Date Dx Coded Attending Type Code Diagnosis Diagnosed By 06/30/2008 MARK MCFARLANE DO 401.1 HYPERTENSION, BENIGN ESSENTIAL 06/30/2008 MARK MCFARLANE DO 844.9 Sprain/strain Knee/leg 06/30/2008 401.1 HYPERTENSION, BENIGN ESSENTIAL 06/30/2008 844.9 Sprain/strain Knee/leg 06/30/2008 MARK MCFARLANE DO 401.1 HYPERTENSION, BENIGN ESSENTIAL 06/30/2008 JANA MCFARLANE DOA K 844.9 Sprain/strain Knee/leg 06/30/2008 JANA MCFARLANE DOA K 401.1 HYPERTENSION, BENIGN ESSENTIAL 06/30/2008 JANA MCFARLANE DOA K 844.9 Sprain/strain Knee/leg 06/30/2008 JANA MCFARLANE DOA K 401.1 HYPERTENSION, BENIGN ESSENTIAL 06/30/2008 JANA MCFARLANE DOA K 844.9 Sprain/strain Knee/leg 06/30/2008 MARK MCFARLANE DO 401.1 HYPERTENSION, BENIGN ESSENTIAL 06/30/2008 MCFARLANE DO, MARK K 844.9 Sprain/strain Knee/leg 06/30/2008 MCFARLANE DO, MARK K 401.1 HYPERTENSION, BENIGN ESSENTIAL 06/30/2008 MCFARLANE DO, MARK K 844.9 Sprain/strain Knee/leg 06/30/2008 MCFARLANE DO, MARK K 401.1 HYPERTENSION, BENIGN ESSENTIAL 06/30/2008 MCFARLANE DO, MARK K 844.9 Sprain/strain Knee/leg 06/30/2008 MCFARLANE DO, MARK K 401.1 HYPERTENSION, BENIGN ESSENTIAL 06/30/2008 MCFARLANE DO, MARK K 844.9 Sprain/strain Knee/leg 06/30/2008 MCFARLANE DO, MARK K 401.1 HYPERTENSION, BENIGN ESSENTIAL 06/30/2008 MCFARLANE DO, MARK K 844.9 Sprain/strain Knee/leg 06/30/2008 MCFARLANE DO, MARK K 401.1 HYPERTENSION, BENIGN ESSENTIAL 06/30/2008 MCFARLANE DO, MARK K 844.9 Sprain/strain Knee/leg 06/30/2008 EMILIO COON, BEAR 401.1 HYPERTENSION, BENIGN ESSENTIAL 06/30/2008 BEAR JHAVERI MD 844.9 Sprain/strain Knee/leg 06/30/2008 MCFARLANE DO, MARK K 401.1 HYPERTENSION, BENIGN ESSENTIAL 06/30/2008 MCFARLANE DO, MARK K 844.9 Sprain/strain Knee/leg 08/02/2008 MCFARLANE DO, MARK K 401.9 HYPERTENSION, UNSPECIFIED ESSENTIAL 08/02/2008 401.9 Hypertension, Unspecified Essential 08/02/2008 MCFARLANE DO, MARK K 401.9 Hypertension, Unspecified Essential 08/02/2008 MCFARLANE DO, MARK K 401.9 Hypertension, Unspecified Essential 08/02/2008 MCFARLANE DO, MARK K 401.9 Hypertension, Unspecified Essential 08/02/2008 MCFARLANE DO, MARK K 401.9 Hypertension, Unspecified Essential 08/02/2008 MCFARLANE DO, MARK K 401.9 Hypertension, Unspecified Essential 08/02/2008 MCFARLANE DO, MARK K 401.9 Hypertension, Unspecified Essential 08/02/2008 MCFARLANE DO, MARK K 401.9 Hypertension, Unspecified Essential 08/02/2008 MCFARLANE DO, MARK K 401.9 Hypertension, Unspecified Essential 08/02/2008 MCFARLANE DO, MARK K 401.9 Hypertension, Unspecified Essential 08/02/2008 BEAR JHAVERI MD 401.9 Hypertension, Unspecified Essential 08/02/2008 MCFARLANE DO, MARK K 401.9 Hypertension, Unspecified Essential 08/20/2008 MCFARLANE DO, MARK K 715.90 OSTEOARTHROSIS UNSPECIFIED WHETHER GENERALIZED OR LOCALIZED INVOLVING UNSPECIFIED SITE 08/20/2008 MCFARLANE DO, MARK K 836.0 Tear Of Medial Cartilage Or Meniscus Of Knee Current 08/20/2008 715.90 OSTEOARTHROSIS UNSPECIFIED WHETHER GENERALIZED OR LOCALIZED INVOLVING UNSPECIFIED SITE 08/20/2008 836.0 Tear Of Medial Cartilage Or Meniscus Of Knee Current 08/20/2008 MCFARLANE DO, MARK K 715.90 OSTEOARTHROSIS UNSPECIFIED WHETHER GENERALIZED OR LOCALIZED INVOLVING UNSPECIFIED SITE 08/20/2008 MCFARLANE DO, MARK K 836.0 Tear Of Medial Cartilage Or Meniscus Of Knee Current 08/20/2008 MCFARLANE DO, MARK K 715.90 OSTEOARTHROSIS UNSPECIFIED WHETHER GENERALIZED OR LOCALIZED INVOLVING UNSPECIFIED SITE 08/20/2008 MCFARLANE DO, MARK K 836.0 Tear Of Medial Cartilage Or Meniscus Of Knee Current 08/20/2008 MCFARLANE DO, MARK K 715.90 OSTEOARTHROSIS UNSPECIFIED WHETHER GENERALIZED OR LOCALIZED INVOLVING UNSPECIFIED SITE 08/20/2008 MCFARLANE DO, MARK K 836.0 Tear Of Medial Cartilage Or Meniscus Of Knee Current 08/20/2008 MCFARLANE DO, MARK K 715.90 OSTEOARTHROSIS UNSPECIFIED WHETHER GENERALIZED OR LOCALIZED INVOLVING UNSPECIFIED SITE 08/20/2008 MCFARLANE DO, MARK K 836.0 Tear Of Medial Cartilage Or Meniscus Of Knee Current 08/20/2008 MCFARLANE DO, MARK K 715.90 OSTEOARTHROSIS UNSPECIFIED WHETHER GENERALIZED OR LOCALIZED INVOLVING UNSPECIFIED SITE 08/20/2008 MCFARLANE DO, MARK K 836.0 Tear Of Medial Cartilage Or Meniscus Of Knee Current 08/20/2008 MCFARLANE DO, MARK K 715.90 OSTEOARTHROSIS UNSPECIFIED WHETHER GENERALIZED OR LOCALIZED INVOLVING UNSPECIFIED SITE 08/20/2008 MCFARLANE DO, MARK K 836.0 Tear Of Medial Cartilage Or Meniscus Of Knee Current 08/20/2008 MCFARLANE DO, MARK K 715.90 OSTEOARTHROSIS UNSPECIFIED WHETHER GENERALIZED OR LOCALIZED INVOLVING UNSPECIFIED SITE 08/20/2008 MCFARLANE DO, MARK K 836.0 Tear Of Medial Cartilage Or Meniscus Of Knee Current 08/20/2008 MCFARLANE DO, MARK K 715.90 OSTEOARTHROSIS UNSPECIFIED WHETHER GENERALIZED OR LOCALIZED INVOLVING UNSPECIFIED SITE 08/20/2008 MCFARLANE DO, MARK K 836.0 Tear Of Medial Cartilage Or Meniscus Of Knee Current 08/20/2008 MCFARLANE DO MARK K 715.90 OSTEOARTHROSIS UNSPECIFIED WHETHER GENERALIZED OR LOCALIZED INVOLVING UNSPECIFIED SITE 08/20/2008 MCFARLANE DO, MARK K 836.0 Tear Of Medial Cartilage Or Meniscus Of Knee Current 08/20/2008 BEAR JHAVERI MD 715.90 OSTEOARTHROSIS UNSPECIFIED WHETHER GENERALIZED OR LOCALIZED INVOLVING UNSPECIFIED SITE 08/20/2008 BEAR JHAVERI MD 836.0 Tear Of Medial Cartilage Or Meniscus Of Knee Current 08/20/2008 MCFARLANE DO, MARK K 715.90 OSTEOARTHROSIS UNSPECIFIED WHETHER GENERALIZED OR LOCALIZED INVOLVING UNSPECIFIED SITE 08/20/2008 MCFARLANE DO, MARK K 836.0 Tear Of Medial Cartilage Or Meniscus Of Knee Current 11/09/2008 MCFARLANE DO, MARK K 918.1 Corneal Abrasion 11/09/2008 918.1 Corneal Abrasion 11/09/2008 MCFARLANE DO, MARK K 918.1 Corneal Abrasion 11/09/2008 MCFARLANE DO, MARK K 918.1 Corneal Abrasion 11/09/2008 MCFARLANE DO, MARK K 918.1 Corneal Abrasion 11/09/2008 MCFARLANE DO, MARK K 918.1 Corneal Abrasion 11/09/2008 MCFARLANE DO, MARK K 918.1 Corneal Abrasion 11/09/2008 MCFARLANE DO, MARK K 918.1 Corneal Abrasion 11/09/2008 MCFARLANE DO, MARK K 918.1 Corneal Abrasion 11/09/2008 MCFARLANE DO, MARK K 918.1 Corneal Abrasion 11/09/2008 MCFARLANE DO, MARK K 918.1 Corneal Abrasion 11/09/2008 BEAR JHAVERI MD 918.1 Corneal Abrasion 11/09/2008 MCFARLANE DO, MARK K 918.1 Corneal Abrasion 04/07/2010 MAEVE JONES MARK K 451.9 Thrombophlebitis Of Unspecified Site 04/07/2010 MCFARLANE DO MARK K 454.9 Varicose Veins Asymptomatic 04/07/2010 MAEVE JONES MARK K V68.1 Issue Of Repeat Prescriptions 04/07/2010 451.9 Thrombophlebitis Of Unspecified Site 04/07/2010 454.9 Varicose Veins Asymptomatic 04/07/2010 V68.1 Issue Of Repeat Prescriptions 04/07/2010 MCFARLANE DO, MARK K 451.9 Thrombophlebitis Of Unspecified Site 04/07/2010 MCFARLANE DO, MARK K 454.9 Varicose Veins Asymptomatic 04/07/2010 MCFARLANE DO, MARK K V68.1 Issue Of Repeat Prescriptions 04/07/2010 MCFARLANE DO, MARK K 451.9 Thrombophlebitis Of Unspecified Site 04/07/2010 MCFARLANE DO, MARK K 454.9 Varicose Veins Asymptomatic 04/07/2010 MCFARLANE DO, MARK K V68.1 Issue Of Repeat Prescriptions 04/07/2010 MCFARLANE DO, MARK K 451.9 Thrombophlebitis Of Unspecified Site 04/07/2010 MCFARLANE DO, MARK K 454.9 Varicose Veins Asymptomatic 04/07/2010 MCFARLANE DO, MARK K V68.1 Issue Of Repeat Prescriptions 04/07/2010 MCFARLANE DO, MARK K 451.9 Thrombophlebitis Of Unspecified Site 04/07/2010 MCFARLANE DO, MARK K 454.9 Varicose Veins Asymptomatic 04/07/2010 MCFARLANE DO, MARK K V68.1 Issue Of Repeat Prescriptions 04/07/2010 MCFARLANE DO, MARK K 451.9 Thrombophlebitis Of Unspecified Site 04/07/2010 MCFARLANE DO, MARK K 454.9 Varicose Veins Asymptomatic 04/07/2010 MCFARLANE DO, MARK K V68.1 Issue Of Repeat Prescriptions 04/07/2010 MCFARLANE DO, MARK K 451.9 Thrombophlebitis Of Unspecified Site 04/07/2010 MCFARLANE DO, MARK K 454.9 Varicose Veins Asymptomatic 04/07/2010 MCFARLANE DO, MARK K V68.1 Issue Of Repeat Prescriptions 04/07/2010 MCFARLANE DO, MARK K 451.9 Thrombophlebitis Of Unspecified Site 04/07/2010 MCFARLANE DO, MARK K 454.9 Varicose Veins Asymptomatic 04/07/2010 MCFARLANE DO, MARK K V68.1 Issue Of Repeat Prescriptions 04/07/2010 MCFARLANE DO, MARK K 451.9 Thrombophlebitis Of Unspecified Site 04/07/2010 MCFARLANE DO, MARK K 454.9 Varicose Veins Asymptomatic 04/07/2010 MCFARLANE DO, MARK K V68.1 Issue Of Repeat Prescriptions 04/07/2010 MAEVE JONES MARK K 451.9 Thrombophlebitis Of Unspecified Site 04/07/2010 MCFARLANE DO MARK K 454.9 Varicose Veins Asymptomatic 04/07/2010 MCFARLANE DO MARK K V68.1 Issue Of Repeat Prescriptions 04/07/2010 BEAR JHAVERI MD 451.9 Thrombophlebitis Of Unspecified Site 04/07/2010 BEAR JHAVERI MD 454.9 Varicose Veins Asymptomatic 04/07/2010 BEAR JHAVERI MD V68.1 Issue Of Repeat Prescriptions 04/07/2010 MARK MCFARLANE DO 451.9 Thrombophlebitis Of Unspecified Site 04/07/2010 MCFARLANE DO MRAK K 454.9 Varicose Veins Asymptomatic 04/07/2010 MCFARLANE DO MARK K V68.1 Issue Of Repeat Prescriptions 05/06/2010 MAEVE JONES MARK K 535.50 Unspecified Gastritis And Gastroduodenitis ( without Hemorrhage) 05/06/2010 535.50 Unspecified Gastritis And Gastroduodenitis (without Hemorrhage) 05/06/2010 MCFARLANE DO MARK K 535.50 Unspecified Gastritis And Gastroduodenitis ( without Hemorrhage) 05/06/2010 MCFARLANE DO, MARK K 535.50 Unspecified Gastritis And Gastroduodenitis ( without Hemorrhage) 05/06/2010 MCFARLANE DO, MARK K 535.50 Unspecified Gastritis And Gastroduodenitis ( without Hemorrhage) 05/06/2010 MCFARLANE DO, MARK K 535.50 Unspecified Gastritis And Gastroduodenitis ( without Hemorrhage) 05/06/2010 MCFARLANE DO MARK K 535.50 Unspecified Gastritis And Gastroduodenitis ( without Hemorrhage) 05/06/2010 MCFARLANE DO, MARK K 535.50 Unspecified Gastritis And Gastroduodenitis ( without Hemorrhage) 05/06/2010 MCFARLANE DO, MARK K 535.50 Unspecified Gastritis And Gastroduodenitis ( without Hemorrhage) 05/06/2010 MCFARLANE DO, MARK K 535.50 Unspecified Gastritis And Gastroduodenitis ( without Hemorrhage) 05/06/2010 MCFARLANE DO, MARK K 535.50 Unspecified Gastritis And Gastroduodenitis ( without Hemorrhage) 05/06/2010 BEAR JHAVERI MD 535.50 Unspecified Gastritis And Gastroduodenitis ( without Hemorrhage) 05/06/2010 MCFARLANE DO, MARK K 535.50 Unspecified Gastritis And Gastroduodenitis ( without Hemorrhage) 05/23/2010 MCFARLANE DO, MARK K 008.8 Intestinal Infection Due To Other Organism Not Elsewhere Classified 05/23/2010 MCFARLANE DO, MARK K 454.8 Varicose Veins Of Lower Extremities With Other Complications 05/23/2010 MCFARLANE DO, MARK K 724.2 LUMBAGO 05/23/2010 008.8 Intestinal Infection Due To Other Organism Not Elsewhere Classified 05/23/2010 454.8 Varicose Veins Of Lower Extremities With Other Complications 05/23/2010 724.2 LUMBAGO 05/23/2010 MCFARLANE DO, MARK K 008.8 Intestinal Infection Due To Other Organism Not Elsewhere Classified 05/23/2010 MCFARLANE DO, MARK K 454.8 Varicose Veins Of Lower Extremities With Other Complications 05/23/2010 MCFARLANE DO, MARK K 724.2 LUMBAGO 05/23/2010 MCFARLANE DO, MARK K 008.8 Intestinal Infection Due To Other Organism Not Elsewhere Classified 05/23/2010 MCFARLANE DO MARK K 454.8 Varicose Veins Of Lower Extremities With Other Complications 05/23/2010 MCFARLANE DO, MARK K 724.2 LUMBAGO 05/23/2010 MCFARLANE DO, MARK K 008.8 Intestinal Infection Due To Other Organism Not Elsewhere Classified 05/23/2010 MCFARLANE DO, MARK K 454.8 Varicose Veins Of Lower Extremities With Other Complications 05/23/2010 MCFARLANE DO, MARK K 724.2 LUMBAGO 05/23/2010 MCFARLANE DO, MARK K 008.8 Intestinal Infection Due To Other Organism Not Elsewhere Classified 05/23/2010 MCFARLANE DO, MARK K 454.8 Varicose Veins Of Lower Extremities With Other Complications 05/23/2010 MCFARLANE DO, MARK K 724.2 LUMBAGO 05/23/2010 MCFARLANE DO, MARK K 008.8 Intestinal Infection Due To Other Organism Not Elsewhere Classified 05/23/2010 MCFARLANE DO, MARK K 454.8 Varicose Veins Of Lower Extremities With Other Complications 05/23/2010 MCFARLANE DO, MARK K 724.2 LUMBAGO 05/23/2010 MCFARLANE DO, MARK K 008.8 Intestinal Infection Due To Other Organism Not Elsewhere Classified 05/23/2010 MCFARLANE DO, MARK K 454.8 Varicose Veins Of Lower Extremities With Other Complications 05/23/2010 MCFARLANE DO, MARK K 724.2 LUMBAGO 05/23/2010 MCFARLANE DO, MARK K 008.8 Intestinal Infection Due To Other Organism Not Elsewhere Classified 05/23/2010 MCFARLANE DO, MARK K 454.8 Varicose Veins Of Lower Extremities With Other Complications 05/23/2010 MCFARLANE DO, MARK K 724.2 LUMBAGO 05/23/2010 MCFARLANE DO, MARK K 008.8 Intestinal Infection Due To Other Organism Not Elsewhere Classified 05/23/2010 MCFARLANE DO, MARK K 454.8 Varicose Veins Of Lower Extremities With Other Complications 05/23/2010 MCFARLANE DO, MARK K 724.2 LUMBAGO 05/23/2010 MCFARLANE DO, MARK K 008.8 Intestinal Infection Due To Other Organism Not Elsewhere Classified 05/23/2010 MCFARLANE DO, MARK K 454.8 Varicose Veins Of Lower Extremities With Other Complications 05/23/2010 MCFARLANE DO, MARK K 724.2 LUMBAGO 05/23/2010 BEAR JHAVERI MD 008.8 Intestinal Infection Due To Other Organism Not Elsewhere Classified 05/23/2010 BEAR JHAVERI MD 454.8 Varicose Veins Of Lower Extremities With Other Complications 05/23/2010 BEAR JHAVERI MD 724.2 LUMBAGO 05/23/2010 MCFARLANE DO, MARK K 008.8 Intestinal Infection Due To Other Organism Not Elsewhere Classified 05/23/2010 MCFARLANE DO, MARK K 454.8 Varicose Veins Of Lower Extremities With Other Complications 05/23/2010 MCFARLANE DO, MARK K 724.2 LUMBAGO 05/30/2010 MCFARLANE DO, MARK K 784.0 Headache 05/30/2010 784.0 Headache 05/30/2010 MCFARLANE DO, MARK K 784.0 Headache 05/30/2010 MCFARLANE DO, MARK K 784.0 Headache 05/30/2010 MCFARLANE DO, MARK K 784.0 Headache 05/30/2010 MCFARLANE DO, MARK K 784.0 Headache 05/30/2010 MCFARLANE DO, MARK K 784.0 Headache 05/30/2010 MCFARLANE DO, MARK K 784.0 Headache 05/30/2010 MCFARLANE DO, MARK K 784.0 Headache 05/30/2010 MCFARLANE DO, MARK K 784.0 Headache 05/30/2010 MCFARLANE DO, MARK K 784.0 Headache 05/30/2010 EMILIO COON, BEAR 784.0 Headache 05/30/2010 MCFARLANE DO, MARK K 784.0 Headache 06/04/2010 Ot 070.30 06/04/2010 Ot 276.1 06/04/2010 Ot 401.9 06/04/2010 Ot 453.6 06/04/2010 Ot 466.0 06/04/2010 Ot 575.8 06/04/2010 Ot 784.0 06/12/2010 MCFARLANE DO, MARK K 070.30 Hepatitis, B Virus ('serum') 06/12/2010 MCFARLANE DO, MARK K 790.6 Abnormal Liver Function Test 06/12/2010 070.30 Hepatitis, B Virus ('serum') 06/12/2010 790.6 Abnormal Liver Function Test 06/12/2010 MCFARLANE DO, MARK K 070.30 Hepatitis, B Virus ('serum') 06/12/2010 MCFARLANE DO, MARK K 790.6 Abnormal Liver Function Test 06/12/2010 MCFARLANE DO, MARK K 070.30 Hepatitis, B Virus ('serum') 06/12/2010 MCFARLANE DO, MARK K 790.6 Abnormal Liver Function Test 06/12/2010 MCFARLANE DO, MARK K 070.30 Hepatitis, B Virus ('serum') 06/12/2010 MCFARLANE DO, MARK K 790.6 Abnormal Liver Function Test 06/12/2010 MCFARLANE DO, MARK K 070.30 Hepatitis, B Virus ('serum') 06/12/2010 MCFARLANE DO, MARK K 790.6 Abnormal Liver Function Test 06/12/2010 MCFARLANE DO, MARK K 070.30 Hepatitis, B Virus ('serum') 06/12/2010 MCFARLANE DO, MARK K 790.6 Abnormal Liver Function Test 06/12/2010 MCFARLANE DO, MARK K 070.30 Hepatitis, B Virus ('serum') 06/12/2010 MCFARLANE DO, MARK K 790.6 Abnormal Liver Function Test 06/12/2010 MCFARLANE DO, MARK K 070.30 Hepatitis, B Virus ('serum') 06/12/2010 MCFARLANE DO, MARK K 790.6 Abnormal Liver Function Test 06/12/2010 MCFARLANE DO, MARK K 070.30 Hepatitis, B Virus ('serum') 06/12/2010 MCFARLANE DO, MARK K 790.6 Abnormal Liver Function Test 06/12/2010 MCFARLANE DO, MARK K 070.30 Hepatitis, B Virus ('serum') 06/12/2010 MCFARLANE DO, MARK K 790.6 Abnormal Liver Function Test 06/12/2010 BEAR JHAVERI MD 070.30 Hepatitis, B Virus ('serum') 06/12/2010 BEAR JHAVERI MD 790.6 Abnormal Liver Function Test 06/12/2010 MCFARLANE DO, MARK K 070.30 Hepatitis, B Virus ('serum') 06/12/2010 MCFARLANE DO, MARK K 790.6 Abnormal Liver Function Test 07/17/2010 MCFARLANE DO, MARK K 453.40 Dvt - Lower Extremity 07/17/2010 MCFARLANE DO, MARK K 789.01 Abdominal Pain Right Upper Quadrant 07/17/2010 453.40 Dvt - Lower Extremity 07/17/2010 789.01 Abdominal Pain Right Upper Quadrant 07/17/2010 MCFARLANE DO, MARK K 453.40 Dvt - Lower Extremity 07/17/2010 MCFARLANE DO, MARK K 789.01 Abdominal Pain Right Upper Quadrant 07/17/2010 MCFARLANE DO, MARK K 453.40 Dvt - Lower Extremity 07/17/2010 MCFARLANE DO, MARK K 789.01 Abdominal Pain Right Upper Quadrant 07/17/2010 MCFARLANE DO, MARK K 453.40 Dvt - Lower Extremity 07/17/2010 MCFARLANE DO, MARK K 789.01 Abdominal Pain Right Upper Quadrant 07/17/2010 MCFARLANE DO, MARK K 453.40 Dvt - Lower Extremity 07/17/2010 MCFARLANE DO, MAKR K 789.01 Abdominal Pain Right Upper Quadrant 07/17/2010 MCFARLANE DO, MARK K 453.40 Dvt - Lower Extremity 07/17/2010 MCFARLANE DO, MARK K 789.01 Abdominal Pain Right Upper Quadrant 07/17/2010 MCFARLANE DO, MARK K 453.40 Dvt - Lower Extremity 07/17/2010 MCFARLANE DO, MARK K 789.01 Abdominal Pain Right Upper Quadrant 07/17/2010 MCFARLANE DO, MARK K 453.40 Dvt - Lower Extremity 07/17/2010 MCFARLANE DO, MARK K 789.01 Abdominal Pain Right Upper Quadrant 07/17/2010 MCFARLANE DO, MARK K 453.40 Dvt - Lower Extremity 07/17/2010 MCFARLANE DO, MARK K 789.01 Abdominal Pain Right Upper Quadrant 07/17/2010 MCFARLANE DO, MARK K 453.40 Dvt - Lower Extremity 07/17/2010 MCFARLANE DO, MARK K 789.01 Abdominal Pain Right Upper Quadrant 07/17/2010 BEAR JHAVERI MD 453.40 Dvt - Lower Extremity 07/17/2010 BEAR JHAVERI MD 789.01 Abdominal Pain Right Upper Quadrant 07/17/2010 MCFARLANE DO, MARK K 453.40 Dvt - Lower Extremity 07/17/2010 MCFARLANE DO, MARK K 789.01 Abdominal Pain Right Upper Quadrant 12/18/2010 MCFARLANE DO MARK K 682.9 CELLULITIS AND ABSCESS OF UNSPECIFIED SITES 12/18/2010 682.9 Cellulitis And Abscess Of Unspecified Sites 12/18/2010 MCFARLANE DO, MARK K 682.9 Cellulitis And Abscess Of Unspecified Sites 12/18/2010 MCFARLANE DO, MARK K 682.9 Cellulitis And Abscess Of Unspecified Sites 12/18/2010 MCFARLANE DO, MARK K 682.9 Cellulitis And Abscess Of Unspecified Sites 12/18/2010 MCFARLANE DO, AMRK K 682.9 Cellulitis And Abscess Of Unspecified Sites 12/18/2010 MCFARLANE DO, MARK K 682.9 Cellulitis And Abscess Of Unspecified Sites 12/18/2010 MCFARLANE DO, MARK K 682.9 Cellulitis And Abscess Of Unspecified Sites 12/18/2010 MCFARLANE DO, MARK K 682.9 Cellulitis And Abscess Of Unspecified Sites 12/18/2010 MCFARLANE DO, MARK K 682.9 Cellulitis And Abscess Of Unspecified Sites 12/18/2010 MCFARLANE DO, MARK K 682.9 Cellulitis And Abscess Of Unspecified Sites 12/18/2010 BEAR JHAVERI MD 682.9 Cellulitis And Abscess Of Unspecified Sites 12/18/2010 MCFARLANE DO, MARK K 682.9 Cellulitis And Abscess Of Unspecified Sites 12/22/2010 MCFARLANE DO MARK K V04.81 Flu Dx (3 Yrs And Above, Im) 12/22/2010 V04.81 Flu Dx (3 Yrs And Above, Im) 12/22/2010 MARK MCFARLANE DO V04.81 Flu Dx (3 Yrs And Above, Im) 12/22/2010 MCFARLANE DO, MARK K V04.81 Flu Dx (3 Yrs And Above, Im) 12/22/2010 MCFARLANE DO, MARK K V04.81 Flu Dx (3 Yrs And Above, Im) 12/22/2010 MCFARLANE DO, MARK K V04.81 Flu Dx (3 Yrs And Above, Im) 12/22/2010 MCFARLANE DO, MARK K V04.81 Flu Dx (3 Yrs And Above, Im) 12/22/2010 MCFARLANE DO, MARK K V04.81 Flu Dx (3 Yrs And Above, Im) 12/22/2010 MCFARLANE DO, MARK K V04.81 Flu Dx (3 Yrs And Above, Im) 12/22/2010 MCFARLANE DO, MARK K V04.81 Flu Dx (3 Yrs And Above, Im) 12/22/2010 MCFARLANE DO, MARK K V04.81 Flu Dx (3 Yrs And Above, Im) 12/22/2010 BEAR JHAVERI MD V04.81 Flu Dx (3 Yrs And Above, Im) 12/22/2010 MCFARLANE DO, MARK K V04.81 Flu Dx (3 Yrs And Above, Im) 02/15/2011 MCFARLANE DO, MARK K 883.0 OPEN WOUND OF FINGERS WITHOUT COMPLICATION 02/15/2011 883.0 Open Wound Of Fingers Without Complication 02/15/2011 MCFARLANE DO, MARK K 883.0 Open Wound Of Fingers Without Complication 02/15/2011 MCFARLANE DO, MARK K 883.0 Open Wound Of Fingers Without Complication 02/15/2011 MCFARLANE DO, MARK K 883.0 Open Wound Of Fingers Without Complication 02/15/2011 MCFARLANE DO, MARK K 883.0 Open Wound Of Fingers Without Complication 02/15/2011 MCFARLANE DO, MARK K 883.0 Open Wound Of Fingers Without Complication 02/15/2011 MCFARLANE DO, MARK K 883.0 Open Wound Of Fingers Without Complication 02/15/2011 MCFARLANE DO, MARK K 883.0 Open Wound Of Fingers Without Complication 02/15/2011 MCFARLANE DO, MARK K 883.0 Open Wound Of Fingers Without Complication 02/15/2011 MCFARLANE DO, MARK K 883.0 Open Wound Of Fingers Without Complication 02/15/2011 BEAR JHAVERI MD 883.0 Open Wound Of Fingers Without Complication 02/15/2011 MCFARLANE DO, MARK K 883.0 Open Wound Of Fingers Without Complication 04/07/2011 MCFARLANE DO, MARK K 466.0 BRONCHITIS, ACUTE 04/07/2011 466.0 Bronchitis, Acute 04/07/2011 MCFARLANE DO, MARK K 466.0 Bronchitis, Acute 04/07/2011 MCFARLANE DO, MARK K 466.0 Bronchitis, Acute 04/07/2011 MCFARLANE DO, MARK K 466.0 Bronchitis, Acute 04/07/2011 MCFARLANE DO, MARK K 466.0 Bronchitis, Acute 04/07/2011 MCFARLANE DO, MARK K 466.0 Bronchitis, Acute 04/07/2011 MCFARLANE DO, MARK K 466.0 Bronchitis, Acute 04/07/2011 MCFARLANE DO, MARK K 466.0 Bronchitis, Acute 04/07/2011 MCFARLANE DO, MARK K 466.0 Bronchitis, Acute 04/07/2011 MCFARLANE DO, MARK K 466.0 Bronchitis, Acute 04/07/2011 BEAR JHAVERI MD 466.0 Bronchitis, Acute 04/07/2011 MCFARLANE DO, MARK K 466.0 Bronchitis, Acute 05/29/2011 MCFARLANE DO, MARK K 790.6 Abnormal Liver Function Test 05/29/2011 790.6 Abnormal Liver Function Test 05/29/2011 MCFARLANE DO, MARK K 790.6 Abnormal Liver Function Test 05/29/2011 MCFARLANE DO, MARK K 790.6 Abnormal Liver Function Test 05/29/2011 MCFARLANE DO, MARK K 790.6 Abnormal Liver Function Test 05/29/2011 MCFARLANE DO, MARK K 790.6 Abnormal Liver Function Test 05/29/2011 MCFARLANE DO, MARK K 790.6 Abnormal Liver Function Test 05/29/2011 MCFARLANE DO, MARK K 790.6 Abnormal Liver Function Test 05/29/2011 MCFARLANE DO, MARK K 790.6 Abnormal Liver Function Test 05/29/2011 MCFARLANE DO, MARK K 790.6 Abnormal Liver Function Test 05/29/2011 MCFARLANE DO, MARK K 790.6 Abnormal Liver Function Test 05/29/2011 BEAR JHAVERI MD 790.6 Abnormal Liver Function Test 05/29/2011 MCFARLANE DO, MARK K 790.6 Abnormal Liver Function Test 05/30/2011 MCFARLANE DO, MARK K V01.79 CONTACT WITH OR EXPOSURE TO OTHER VIRAL DISEASES 05/30/2011 V01.79 Contact With Or Exposure To Other Viral Diseases 05/30/2011 MCFARLANE DO, MARK K V01.79 Contact With Or Exposure To Other Viral Diseases 05/30/2011 MCFARLANE DO, MARK K V01.79 Contact With Or Exposure To Other Viral Diseases 05/30/2011 MCFARLANE DO, MARK K V01.79 Contact With Or Exposure To Other Viral Diseases 05/30/2011 MCFARLANE DO, MARK K V01.79 Contact With Or Exposure To Other Viral Diseases 05/30/2011 MCFARLANE DO, MARK K V01.79 Contact With Or Exposure To Other Viral Diseases 05/30/2011 MCFARLANE DO, MARK K V01.79 Contact With Or Exposure To Other Viral Diseases 05/30/2011 MCFARLANE DO, MARK K V01.79 Contact With Or Exposure To Other Viral Diseases 05/30/2011 MCFARLANE DO, MARK K V01.79 Contact With Or Exposure To Other Viral Diseases 05/30/2011 MCFARLANE DO, MARK K V01.79 Contact With Or Exposure To Other Viral Diseases 05/30/2011 BEAR JHAVERI MD V01.79 Contact With Or Exposure To Other Viral Diseases 05/30/2011 MCFARLANE DO, MARK K V01.79 Contact With Or Exposure To Other Viral Diseases 08/23/2011 MCFARLANE DO, MARK Gomez 686.9 UNSPECIFIED LOCAL INFECTION OF SKIN AND SUBCUTANEOUS TISSUE 08/23/2011 MAEVE DOMARK 729.82 CRAMP OF LIMB 08/23/2011 MCFARLANE DO, MARK K 780.79 OTHER MALAISE AND FATIGUE 08/23/2011 MCFARLANE DOMARK 786.2 COUGH 08/23/2011 686.9 Unspecified Local Infection Of Skin And Subcutaneous Tissue 08/23/2011 729.82 Cramp Of Limb 08/23/2011 780.79 Other Malaise And Fatigue 08/23/2011 786.2 Cough 08/23/2011 MCFARLANE DOMARK K 686.9 Unspecified Local Infection Of Skin And Subcutaneous Tissue 08/23/2011 MCFARLANE DOMARK K 729.82 Cramp Of Limb 08/23/2011 MCFARLANE DOJANAA K 780.79 Other Malaise And Fatigue 08/23/2011 MCFARLANE DOMARK 786.2 Cough 08/23/2011 MARK MCFARLANE DO K 686.9 Unspecified Local Infection Of Skin And Subcutaneous Tissue 08/23/2011 MCFARLANE DO, MARK K 729.82 Cramp Of Limb 08/23/2011 MCFARLANE DO, MARK K 780.79 Other Malaise And Fatigue 08/23/2011 MCFARLANE DO, MARK K 786.2 Cough 08/23/2011 MCFARLANE DO, MARK K 686.9 Unspecified Local Infection Of Skin And Subcutaneous Tissue 08/23/2011 MCFARLANE DO, MARK K 729.82 Cramp Of Limb 08/23/2011 MCFARLANE DO, MARK K 780.79 Other Malaise And Fatigue 08/23/2011 MCFARLANE DO, MARK K 786.2 Cough 08/23/2011 MCFARLANE DO, MARK K 686.9 Unspecified Local Infection Of Skin And Subcutaneous Tissue 08/23/2011 MCFARLANE DO, MARK K 729.82 Cramp Of Limb 08/23/2011 MCFARLANE DO, MARK K 780.79 Other Malaise And Fatigue 08/23/2011 MCFARLANE DO, MARK K 786.2 Cough 08/23/2011 MCFARLANE DO, MARK K 686.9 Unspecified Local Infection Of Skin And Subcutaneous Tissue 08/23/2011 MCFARLANE DO, MARK K 729.82 Cramp Of Limb 08/23/2011 MCFARLANE DO, MARK K 780.79 Other Malaise And Fatigue 08/23/2011 MCFARLANE DO, MARK K 786.2 Cough 08/23/2011 MCFARLANE DO, MARK K 686.9 Unspecified Local Infection Of Skin And Subcutaneous Tissue 08/23/2011 MCFARLANE DO, MARK K 729.82 Cramp Of Limb 08/23/2011 MCFARLANE DO, MARK K 780.79 Other Malaise And Fatigue 08/23/2011 MCFARLANE DO, MARK K 786.2 Cough 08/23/2011 MCFARLANE DO, MARK K 686.9 Unspecified Local Infection Of Skin And Subcutaneous Tissue 08/23/2011 MCFARLANE DO, MARK K 729.82 Cramp Of Limb 08/23/2011 MCFARLANE DO, MARK K 780.79 Other Malaise And Fatigue 08/23/2011 MCFARLANE DO, MARK K 786.2 Cough 08/23/2011 MCFARLANE DO, MARK K 686.9 Unspecified Local Infection Of Skin And Subcutaneous Tissue 08/23/2011 MCFARLANE DO, MARK K 729.82 Cramp Of Limb 08/23/2011 MCFARLANE DO, MARK K 780.79 Other Malaise And Fatigue 08/23/2011 MCFARLANE DO, MARK K 786.2 Cough 08/23/2011 MCFARLANE DO, MARK K 686.9 Unspecified Local Infection Of Skin And Subcutaneous Tissue 08/23/2011 MCFARLANE DO, MARK K 729.82 Cramp Of Limb 08/23/2011 MCFARLANE DO, MARK K 780.79 Other Malaise And Fatigue 08/23/2011 MCFARLANE DO, MARK K 786.2 Cough 08/23/2011 BEAR JHAVERI MD 686.9 Unspecified Local Infection Of Skin And Subcutaneous Tissue 08/23/2011 BEAR JHAVERI MD 729.82 Cramp Of Limb 08/23/2011 BEAR JHAVERI MD 780.79 Other Malaise And Fatigue 08/23/2011 BEAR JHAVERI MD 786.2 Cough 08/23/2011 MCFARLANE DO, MARK K 686.9 Unspecified Local Infection Of Skin And Subcutaneous Tissue 08/23/2011 MCFARLANE DO, MARK K 729.82 Cramp Of Limb 08/23/2011 MCFARLANE DO, MARK K 780.79 Other Malaise And Fatigue 08/23/2011 MCFARLANE DO, MARK K 786.2 Cough 09/20/2011 MCFARLANE DO, MARK K 276.51 DEHYDRATION 09/20/2011 276.51 DEHYDRATION 09/20/2011 MCFARLANE DO, MARK K 276.51 DEHYDRATION 09/20/2011 MCFARLANE DO, MARK K 276.51 DEHYDRATION 09/20/2011 MCFARLANE DO, MARK K 276.51 DEHYDRATION 09/20/2011 MCFARLANE DO, MARK K 276.51 DEHYDRATION 09/20/2011 MCFARLANE DO, MARK K 276.51 DEHYDRATION 09/20/2011 MCFARLANE DO, MARK K 276.51 DEHYDRATION 09/20/2011 MCFARLANE DO, MARK K 276.51 DEHYDRATION 09/20/2011 MCFARLANE DO, MARK K 276.51 DEHYDRATION 09/20/2011 MCFARLANE DO, MARK K 276.51 DEHYDRATION 09/20/2011 BEAR JHAVERI MD 276.51 DEHYDRATION 09/20/2011 MCFARLANE DO, MARK K 276.51 DEHYDRATION 12/08/2011 MCFARLANE DO, MARK K V03.82 PCV-13 (PREVNAR) DX 12/08/2011 MCFARLANE DOJANAA K V04.81 FLU DX (3 YRS AND ABOVE, IM) 12/08/2011 V03.82 Pcv-13 (prevnar) Dx 12/08/2011 V04.81 Flu Dx (3 Yrs And Above, Im) 12/08/2011 MCFARLANE DO, MARK K V03.82 Pcv-13 (prevnar) Dx 12/08/2011 MCFARLANE DO, MARK K V04.81 Flu Dx (3 Yrs And Above, Im) 12/08/2011 MCFARLANE DO, MARK K V03.82 Pcv-13 (prevnar) Dx 12/08/2011 MCFARLANE DO, MARK K V04.81 Flu Dx (3 Yrs And Above, Im) 12/08/2011 MCFARLANE DO, MARK K V03.82 Pcv-13 (prevnar) Dx 12/08/2011 MCFARLANE DO, MARK K V04.81 Flu Dx (3 Yrs And Above, Im) 12/08/2011 MCFARLANE DO, MARK K V03.82 Pcv-13 (prevnar) Dx 12/08/2011 MCFARLANE DO, MARK K V04.81 Flu Dx (3 Yrs And Above, Im) 12/08/2011 MCFARLANE DO, MARK K V03.82 Pcv-13 (prevnar) Dx 12/08/2011 MCFARLANE DO, MARK K V04.81 Flu Dx (3 Yrs And Above, Im) 12/08/2011 MCFARLANE DO, MARK K V03.82 Pcv-13 (prevnar) Dx 12/08/2011 MCFARLANE DO, MARK K V04.81 Flu Dx (3 Yrs And Above, Im) 12/08/2011 MCFARLANE DO, MARK K V03.82 Pcv-13 (prevnar) Dx 12/08/2011 MCFARLANE DO, MARK K V04.81 Flu Dx (3 Yrs And Above, Im) 12/08/2011 MCFARLANE DO, MARK K V03.82 Pcv-13 (prevnar) Dx 12/08/2011 MCFARLANE DO, MAKR K V04.81 Flu Dx (3 Yrs And Above, Im) 12/08/2011 MCFARLANE DO, MARK K V03.82 Pcv-13 (prevnar) Dx 12/08/2011 MCFARLANE DO, MARK K V04.81 Flu Dx (3 Yrs And Above, Im) 12/08/2011 BEAR JHAVERI MD V03.82 Pcv-13 (prevnar) Dx 12/08/2011 BEAR JHAVERI MD V04.81 Flu Dx (3 Yrs And Above, Im) 12/08/2011 MCFARLANE DO, MARK Jason V03.82 Pcv-13 (prevnar) Dx 12/08/2011 MCFARLANE DO, MARK Gomez V04.81 Flu Dx (3 Yrs And Above, Im) 02/07/2012 MCFARLANE DO, MARK K V05.8 ZOSTAVAX DX 02/07/2012 V05.8 Zostavax Dx 02/07/2012 MCFARLANE DO, MARK K V05.8 Zostavax Dx 02/07/2012 MCFARLANE DO, MARK K V05.8 Zostavax Dx 02/07/2012 MCFARLANE DO, MARK K V05.8 Zostavax Dx 02/07/2012 MCFARALNE DO, MARK K V05.8 Zostavax Dx 02/07/2012 MCFARLANE DO, MARK K V05.8 Zostavax Dx 02/07/2012 MCFARLANE DO, MARK K V05.8 Zostavax Dx 02/07/2012 MCFARLANE DO, MARK K V05.8 Zostavax Dx 02/07/2012 MCFARLANE DO, MARK K V05.8 Zostavax Dx 02/07/2012 MCFARLANE DO, MARK K V05.8 Zostavax Dx 02/07/2012 BEAR JHAVERI MD V05.8 Zostavax Dx 02/07/2012 MCFARLANE DO, MARK K V05.8 Zostavax Dx 03/18/2012 530.81 GERD 03/18/2012 719.46 PAIN IN JOINT INVOLVING LOWER LEG 03/18/2012 728.85 SPASM OF MUSCLE 03/18/2012 V70.0 ROUTINE GENERAL MEDICAL EXAMINATION AT A HEALTH CARE FACILITY 03/18/2012 MAEVE DOMARK K 530.81 GERD 03/18/2012 MCFARLANE DOMARK K 719.46 PAIN IN JOINT INVOLVING LOWER LEG 03/18/2012 MCFARLANE DOMARK K 728.85 SPASM OF MUSCLE 03/18/2012 MCFARLANE DOJANAA K V70.0 ROUTINE GENERAL MEDICAL EXAMINATION AT A HEALTH CARE FACILITY 03/18/2012 MCFARLANE DOMARK 530.81 GERD 03/18/2012 MCFARLANE DOJANAA K 719.46 PAIN IN JOINT INVOLVING LOWER LEG 03/18/2012 MCFARLANE DOJANAA K 728.85 SPASM OF MUSCLE 03/18/2012 MCFARLANE DO, MARK K V70.0 ROUTINE GENERAL MEDICAL EXAMINATION AT A HEALTH CARE FACILITY 03/18/2012 MCFARLANE DO, MARK K 530.81 GERD 03/18/2012 MCFARLANE DO, MARK K 719.46 PAIN IN JOINT INVOLVING LOWER LEG 03/18/2012 MCFARLANE DO, MARK K 728.85 SPASM OF MUSCLE 03/18/2012 MCFARLANE DO, MARK K V70.0 ROUTINE GENERAL MEDICAL EXAMINATION AT A HEALTH CARE FACILITY 03/18/2012 MCFARLANE DO, MARK K 530.81 GERD 03/18/2012 MCFARLANE DO, MARK K 719.46 PAIN IN JOINT INVOLVING LOWER LEG 03/18/2012 MCFARLANE DO, MARK K 728.85 SPASM OF MUSCLE 03/18/2012 MCFARLANE DO, MARK K V70.0 ROUTINE GENERAL MEDICAL EXAMINATION AT A HEALTH CARE FACILITY 03/18/2012 MCFARLANE DO, MARK K 530.81 GERD 03/18/2012 MCFARLANE DO, MARK K 719.46 PAIN IN JOINT INVOLVING LOWER LEG 03/18/2012 MCFARLANE DO, MARK K 728.85 SPASM OF MUSCLE 03/18/2012 MCFARLANE DO, MARK K V70.0 ROUTINE GENERAL MEDICAL EXAMINATION AT A HEALTH CARE FACILITY 03/18/2012 MCFARLANE DO, MARK K 530.81 GERD 03/18/2012 MCFARLANE DO, MARK K 719.46 PAIN IN JOINT INVOLVING LOWER LEG 03/18/2012 MCFARLANE DO, MARK K 728.85 SPASM OF MUSCLE 03/18/2012 MCFARLANE DO, MARK K V70.0 ROUTINE GENERAL MEDICAL EXAMINATION AT A HEALTH CARE FACILITY 03/18/2012 MCFARLANE DO, MARK K 530.81 GERD 03/18/2012 MCFARLANE DO, MARK K 719.46 PAIN IN JOINT INVOLVING LOWER LEG 03/18/2012 MCFARLANE DO, MARK K 728.85 SPASM OF MUSCLE 03/18/2012 MCFARLANE DO, MARK K V70.0 ROUTINE GENERAL MEDICAL EXAMINATION AT A HEALTH CARE FACILITY 03/18/2012 MCFARLANE DO, MARK K 530.81 GERD 03/18/2012 MCFARLANE DO, MARK K 719.46 PAIN IN JOINT INVOLVING LOWER LEG 03/18/2012 MCFARLANE DO, MARK K 728.85 SPASM OF MUSCLE 03/18/2012 MCFARLANE DO, MARK K V70.0 ROUTINE GENERAL MEDICAL EXAMINATION AT A HEALTH CARE FACILITY 03/18/2012 MCFARLANE DO, MARK K 530.81 GERD 03/18/2012 MCFARLANE DO, MARK K 719.46 PAIN IN JOINT INVOLVING LOWER LEG 03/18/2012 MCFARLANE DO, MARK K 728.85 SPASM OF MUSCLE 03/18/2012 MCFARLANE DO, MARK K V70.0 ROUTINE GENERAL MEDICAL EXAMINATION AT A HEALTH CARE FACILITY 03/18/2012 BERA JHAVERI MD 530.81 GERD 03/18/2012 BEAR JHAVERI MD 719.46 PAIN IN JOINT INVOLVING LOWER LEG 03/18/2012 BEAR JHAVERI MD 728.85 SPASM OF MUSCLE 03/18/2012 BEAR JHAVERI MD V70.0 ROUTINE GENERAL MEDICAL EXAMINATION AT A HEALTH CARE FACILITY 03/18/2012 MCFARLANE DO, MARK K 530.81 GERD 03/18/2012 MCFARLANE DO, MARK K 719.46 PAIN IN JOINT INVOLVING LOWER LEG 03/18/2012 MCFARLANE DO, MARK K 728.85 SPASM OF MUSCLE 03/18/2012 MCFARLANE DO, MARK K V70.0 ROUTINE GENERAL MEDICAL EXAMINATION AT A HEALTH CARE FACILITY 03/19/2012 MCFARLANE DO, MARK K 272.4 DYSLIPIDEMIA 03/19/2012 MCFARLANE DO, MARK K 272.4 DYSLIPIDEMIA 03/19/2012 MCFARLANE DO, MARK K 272.4 DYSLIPIDEMIA 03/19/2012 MFCARLANE DO, MARK K 272.4 DYSLIPIDEMIA 03/19/2012 MCFARLANE DO, MARK K 272.4 DYSLIPIDEMIA 03/19/2012 MCFARLANE DO, MARK K 272.4 DYSLIPIDEMIA 03/19/2012 MCFARLANE DO, MARK K 272.4 DYSLIPIDEMIA 03/19/2012 MCFARLANE DO, MARK K 272.4 DYSLIPIDEMIA 03/19/2012 MCFARLANE DO, MARK K 272.4 DYSLIPIDEMIA 03/19/2012 BEAR JHAVERI MD 272.4 DYSLIPIDEMIA 03/19/2012 MCFARLANE DO, MARK K 272.4 DYSLIPIDEMIA 10/27/2012 MCFARLANE DO, MARK K 389.9 HEARING LOSS UNSPEC 10/27/2012 MCFARLANE DO, MARK K 389.9 HEARING LOSS UNSPEC 10/27/2012 MCFARLANE DO, MARK K 389.9 HEARING LOSS UNSPEC 10/27/2012 MCFARLANE DO, MARK K 389.9 HEARING LOSS UNSPEC 10/27/2012 MCFARLANE DO, MARK K 389.9 HEARING LOSS UNSPEC 10/27/2012 MCFARLANE DO, MARK K 389.9 HEARING LOSS UNSPEC 10/27/2012 BEAR JHAVERI MD 389.9 HEARING LOSS UNSPEC 10/27/2012 MCFARLANE DO, MARK K 389.9 HEARING LOSS UNSPEC 03/16/2013 MCFARLANE DO, MARK K 388.30 TINNITUS UNSPECIFIED 03/16/2013 MCFARLANE DO, MARK K 455.6 UNSPECIFIED HEMORRHOIDS WITHOUT COMPLICATION 03/16/2013 MCFARLANE DO, MARK K 472.0 CHRONIC RHINITIS 03/16/2013 MCFARLANE DO, MARK K 789.00 ABDOMINAL PAIN UNSPECIFIED SITE 03/16/2013 MCFARLANE DO, MARK K 388.30 TINNITUS UNSPECIFIED 03/16/2013 MCFARLANE DO, MARK K 455.6 UNSPECIFIED HEMORRHOIDS WITHOUT COMPLICATION 03/16/2013 MCFARLANE DO, MARK K 472.0 CHRONIC RHINITIS 03/16/2013 MCFARLANE DO, MARK K 789.00 ABDOMINAL PAIN UNSPECIFIED SITE 03/16/2013 MCFARLANE DO, MARK K 388.30 TINNITUS UNSPECIFIED 03/16/2013 MCFARLANE DO, MARK K 455.6 UNSPECIFIED HEMORRHOIDS WITHOUT COMPLICATION 03/16/2013 MCFARLANE DO, MARK K 472.0 CHRONIC RHINITIS 03/16/2013 MCFARLANE DO, MARK K 789.00 ABDOMINAL PAIN UNSPECIFIED SITE 03/16/2013 BEAR JHAVERI MD 388.30 TINNITUS UNSPECIFIED 03/16/2013 BEAR JHAVERI MD 455.6 UNSPECIFIED HEMORRHOIDS WITHOUT COMPLICATION 03/16/2013 BEAR JHAVERI MD 472.0 CHRONIC RHINITIS 03/16/2013 BEAR JHAVERI MD 789.00 ABDOMINAL PAIN UNSPECIFIED SITE 03/16/2013 MCFARLANE DO, MARK K 388.30 TINNITUS UNSPECIFIED 03/16/2013 MCFARLANE DO, MARK K 455.6 UNSPECIFIED HEMORRHOIDS WITHOUT COMPLICATION 03/16/2013 MCFARLANE DO, MARK K 472.0 CHRONIC RHINITIS 03/16/2013 MCFARLANE DO, MARK K 789.00 ABDOMINAL PAIN UNSPECIFIED SITE 05/07/2013 MCFARLANE DO, MARK K V72.83 OTHER SPECIFIED PRE-OPERATIVE EXAMINATION 05/07/2013 MCFARLANE DO MARK K V72.83 OTHER SPECIFIED PRE-OPERATIVE EXAMINATION 05/07/2013 BEAR JHAVERI MD V72.83 OTHER SPECIFIED PRE-OPERATIVE EXAMINATION 05/07/2013 MCFARLANE DOMARK K V72.83 OTHER SPECIFIED PRE-OPERATIVE EXAMINATION 06/20/2013 PIPPA COON, CHELITA Garrison Ot 272.0 PURE HYPERCHOLESTEROLEM 06/20/2013 CHELITA DAS MD Ot 401.9 HYPERTENSION NOS 06/20/2013 PIPPA COON, CHELITA Garrison Ot 530.81 ESOPHAGEAL REFLUX 06/20/2013 CHELITA DAS MD Ot 564.00 UNSPEC CONSTIPATION 06/20/2013 CHELITA DAS MD Ot 715.36 LOC OSTEOARTH NOS-L/LEG 07/10/2013 MARK MCFARLANE DO K 564.00 CONSTIPATION 07/10/2013 MARK MCFARLANE DO K 600.00 HYPERTROPHY (BENIGN) OF PROSTATE WITHOUT URINARY OBSTRUCTION AND OTHER LOWER URINARY TRACT SYMPTOMS (LUTS) 07/10/2013 BEAR JHAVERI MD 564.00 CONSTIPATION 07/10/2013 BEAR JHAVERI MD 600.00 HYPERTROPHY (BENIGN) OF PROSTATE WITHOUT URINARY OBSTRUCTION AND OTHER LOWER URINARY TRACT SYMPTOMS (LUTS) 07/10/2013 MARK MCFARLANE DO K 564.00 CONSTIPATION 07/10/2013 MARK MCFARLANE DO K 600.00 HYPERTROPHY (BENIGN) OF PROSTATE WITHOUT URINARY OBSTRUCTION AND OTHER LOWER URINARY TRACT SYMPTOMS (LUTS) 07/21/2013 MARK MCFARLANE DO K 793.11 SOLITARY PULMONARY NODULE 07/21/2013 MARK MCFARLANE DO K 805.4 CLOSED FRACTURE OF LUMBAR VERTEBRA WITHOUT SPINAL CORD INJURY 09/21/2013 BANDAR COON, IRVING Gonzalez Ot 455.4 EXT THROMBOS HEMORRHOID 09/21/2013 BANDAR COON, IRVING Gonzalez Ot 562.10 DIVERTICULOSIS COLON (W/O MENT OF HEMORR 01/11/2014 BANDAR COON, IRVING Gonzalez Ot 530.10 ESOPHAGITIS NOS 01/11/2014 BANDAR COON, IRVING Gonzalez Ot 531.90 STOMACH ULCER NOS 07/22/2014 PIPPA COON, CHELITA Garrison Ot 715.36 07/22/2014 CHELITA DAS MD Ot V72.63 07/22/2014 CHELITA DAS MD Ot V72.81 07/22/2014 CHELITA DAS MD Ot V72.83 07/22/2014 PIPPA COON, CHELITA Garrison Ot V72.84 07/22/2014 CHELITA DAS MD Ot V74.8 12/22/2014 Ot 719.46 12/22/2014 PIPPA COON, CHELITA Garrison Ot 724.4 12/22/2014 ALEX HESS Ot 789.00 12/22/2014 CARROLL PA, ALEX M Ot 789.00 12/22/2014 PIPPA COON, CHELITA P Ot 715.36 12/22/2014 PIPPA COON, CHELITA P Ot V72.63 12/22/2014 PIPPA COON, CHELITA P Ot V72.81 12/22/2014 PIPPA COON, CHELITA P Ot V72.83 12/22/2014 PIPPA COON, CHELITA P Ot V72.84 12/22/2014 PIPPA COON, CHELITA P Ot V74.8 12/22/2014 CARROLL PA, ALEX M Ot 789.00 12/22/2014 CARROLL PA, ALEX M Ot 793.11 12/22/2014 CARROLL PA, ALEX M Ot 805.4 12/22/2014 CARROLL PA, ALEX M Ot E928.9 12/22/2014 BANDAR COON, IRVING M Ot V72.84 12/22/2014 BANDAR COON, IRVING M Ot 531.90 12/22/2014 BANDAR COON, IRVING M Ot 535.50 12/22/2014 BANDAR COON, IRVING M Ot 553.3 12/22/2014 BANDAR COON, IRVING M Ot V72.84 12/22/2014 BANDAR COON, IRVING M Ot V72.84 01/12/2015 REGGIE ESPANA CONSTRUCTION PROJECT ADMINISTRATOR Ot I82.409 03/14/2015 CAIN ESCOBEDO, ALI FACP CCDS Ot E78.0 03/14/2015 CAIN ESCOBEDO, TISH FACP CCDS Ot I10 03/14/2015 CAIN COON FACC, ALI FACP CCDS Ot I82.491 03/14/2015 CAIN ESCOBEDOC, ALI FACP CCDS Ot R06.02 03/14/2015 CAIN COON FACC, ALI FACP CCDS Ot R07.89 03/22/2015 CAIN ESCOBEDOC, ALI FACP CCDS Ot I10 ESSENTIAL (PRIMARY) HYPERTENSION 03/22/2015 CAIN ESCOBEDOC, ALI FACP CCDS Ot I82.5Z1 CHR EMBLSM AND THOMBOS UNSP DEEP VEINS O 03/22/2015 CAIN COON FACC, ALI FACP CCDS Ot R07.89 OTHER CHEST PAIN 03/22/2015 CAIN ESCOBEDOC, [facility] FACP CCDS Ot Z79.01 DETENTION (CURRENT) USE OF ANTICOAGULANT 03/22/2015 CAIN COON [facility], [facility] FACP CCDS Ot Z79.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 03/30/2015 CAIN COON [facility], ALI FACP CCDS Ot E78.0 03/30/2015 CAIN COON [facility], ALI FACP CCDS Ot I10 03/30/2015 CAIN COON [facility], ALI FACP CCDS Ot I82.491 03/30/2015 CAIN COON [facility], ALI FACP CCDS Ot R06.02 03/30/2015 CAIN COON [facility], ALI FACP CCDS Ot R07.89 03/30/2015 CAIN COON [facility], ALI FACP CCDS Ot E78.0 03/30/2015 CAIN COON [facility], ALI FACP CCDS Ot I10 03/30/2015 CAIN COON [facility], ALI FACP CCDS Ot I82.491 03/30/2015 CAIN COON [facility], ALI FACP CCDS Ot M17.4 03/30/2015 CAIN COON [facility], ALI FACP CCDS Ot R06.2 03/30/2015 CAIN COON [facility], ALI FACP CCDS Ot R07.89 04/28/2015 LILLY OTONIEL L CONSTRUCTION PROJECT ADMINISTRATOR Ot I10 04/28/2015 OTONIEL CARR CONSTRUCTION PROJECT ADMINISTRATOR Ot I25.10 04/28/2015 LILLYOTONIEL L CONSTRUCTION PROJECT ADMINISTRATOR Ot I82.491 04/28/2015 LILLY OTONIEL L CONSTRUCTION PROJECT ADMINISTRATOR Ot R07.9 05/27/2015 MARIANA GODINEZ DO Ot R06.02 SHORTNESS OF BREATH 05/30/2015 MARIANA GODINEZ DO Ot G47.10 HYPERSOMNIA, UNSPECIFIED 05/30/2015 MARIANA GODINEZ DO Ot R06.83 SNORING 06/08/2015 PIPPA COON, CHELITA Garrison Ot M54.16 RADICULOPATHY, LUMBAR REGION 06/08/2015 PIPPA COON, CHELITA Garrison Ot M75.102 UNSP ROTATR-CUFF TEAR/RUPTR OF LEFT SHOU 06/17/2015 MARIANA GODINEZ DO Ot G47.10 HYPERSOMNIA, UNSPECIFIED 06/17/2015 MARIANA GODINEZ DO Carlos Ot R06.83 SNORING 06/29/2015 PIPPA COON, CHELITA Garrison Ot M54.16 RADICULOPATHY, LUMBAR REGION 06/29/2015 CHELITA DAS MD Ot M75.102 UNSP ROTATR-CUFF TEAR/RUPTR OF LEFT SHOU 01/19/2016 Ot 719.46 JOINT PAIN-L/LEG 01/19/2016 CHELITA DAS MD Ot 724.4 LUMBOSACRAL NEURITIS NOS 01/19/2016 ALEX HESS Ot 789.00 ABDOMINAL PAIN, UNSPECIFIED SITE 01/19/2016 ALEX HESS Ot 789.00 ABDOMINAL PAIN, UNSPECIFIED SITE 01/19/2016 CHELITA DAS MD Ot 715.36 LOC OSTEOARTH NOS-L/LEG 01/19/2016 CHELITA DAS MD Ot V72.63 PRE-PROCEDURAL LABORATORY EXAMINATION 01/19/2016 CHELITA DAS MD Ot V72.81 [id number] CARDIOVASCULAR 01/19/2016 CHELITA DAS MD Ot V72.83 EXAM PRE-OPERATIVE NEC 01/19/2016 CHELITA DAS MD Ot V72.84 EXAM PRE-OPERATIVE NOS 01/19/2016 CHELITA DAS MD Ot V74.8 SCREEN-BACTERIAL DIS NEC 01/19/2016 ALEX HESS Ot 789.00 ABDOMINAL PAIN, UNSPECIFIED SITE 01/19/2016 ALEX HESS Ot 793.11 SOLITARY PULMONARY NODULE 01/19/2016 ALEX HESS Ot 805.4 FX LUMBAR VERTEBRA-CLOSE 01/19/2016 ALEX HESS Ot E928.9 ACCIDENT NOS 01/19/2016 IRVING SHAW MD Ot V72.84 EXAM PRE-OPERATIVE NOS 01/19/2016 BANDAR COON, IRVING Gonzalez Ot 531.90 STOMACH ULCER NOS 01/19/2016 BANDAR COON, IRVING Gonzalez Ot 535.50 UNSP GASTRITIS GASTRODUODENITIS W/O ME 01/19/2016 IRVING SHAW MD Ot 553.3 DIAPHRAGMATIC HERNIA 01/19/2016 BANDAR COON, IRVING Gonzalez Ot V72.84 EXAM PRE-OPERATIVE NOS 01/19/2016 IRVING SHAW MD Ot V72.84 EXAM PRE-OPERATIVE NOS 01/19/2016 REGGIE ESPANA CONSTRUCTION PROJECT ADMINISTRATOR Ot I82.409 ACUTE EMBOLISM AND THOMBOS UNSP DEEP VN 01/19/2016 CAIN ESCOBEDO, ALI FACP CCDS Ot E78.0 PURE HYPERCHOLESTEROLEMIA 01/19/2016 CAIN COON FAC, ALI FACP CCDS Ot I10 ESSENTIAL (PRIMARY) HYPERTENSION 01/19/2016 CAIN COON [facility], ALI FACP CCDS Ot I82.491 ACUTE EMBOLISM AND THROMBOSIS OF DEEP VE 01/19/2016 CAIN COON [facility], ALI FACP CCDS Ot R06.02 SHORTNESS OF BREATH 01/19/2016 CAIN COON FAC, ALI FACP CCDS Ot R07.89 OTHER CHEST PAIN 01/19/2016 CAIN COON [facility], ALI FACP CCDS Ot E78.0 PURE HYPERCHOLESTEROLEMIA 01/19/2016 CAIN COON FACC, ALI FACP CCDS Ot I10 ESSENTIAL (PRIMARY) HYPERTENSION 01/19/2016 CAIN COON [facility], ALI FACP CCDS Ot I82.491 ACUTE EMBOLISM AND THROMBOSIS OF DEEP VE 01/19/2016 CAIN COON [facility], ALI FACP CCDS Ot M17.4 OTHER BILATERAL SECONDARY OSTEOARTHRITIS 01/19/2016 CAIN COON [facility], ALI FACP CCDS Ot R06.2 WHEEZING 01/19/2016 CAIN COON [facility], ALI FACP CCDS Ot R07.89 OTHER CHEST PAIN 01/19/2016 OTONIEL CARR CONSTRUCTION PROJECT ADMINISTRATOR Ot I10 ESSENTIAL (PRIMARY) HYPERTENSION 01/19/2016 OTONIEL CARR CONSTRUCTION PROJECT ADMINISTRATOR Ot I25.10 ATHSCL HEART DISEASE OF [place] CORONARY 01/19/2016 OTONIEL CARR CONSTRUCTION PROJECT ADMINISTRATOR Ot I82.491 ACUTE EMBOLISM AND THROMBOSIS OF DEEP VE 01/19/2016 OTONIEL CARR CONSTRUCTION PROJECT ADMINISTRATOR Ot R07.9 CHEST PAIN, UNSPECIFIED 01/19/2016 MARIANA GODINEZ DO Ot R06.02 SHORTNESS OF BREATH 01/19/2016 PIPPA COON, CHELITA Garrison Ot M54.16 RADICULOPATHY, LUMBAR REGION 01/19/2016 PIPPA COON, CHELITA Garrison Ot M75.102 UNSP ROTATR-CUFF TEAR/RUPTR OF LEFT SHOU 01/20/2016 MARIANA GODINEZ DO Ot I82.409 ACUTE EMBOLISM AND THOMBOS UNSP DEEP VN 01/20/2016 MARIANA GODINEZ DO Ot J98.4 OTHER DISORDERS OF LUNG 01/20/2016 MARIANA GODINEZ DO Ot R06.02 SHORTNESS OF BREATH 01/20/2016 MARIANA GODINEZ DO Ot R06.09 OTHER FORMS OF DYSPNEA 01/20/2016 MARIANA GODINEZ DO Ot R07.89 OTHER CHEST PAIN 01/25/2016 MARIANA GODINEZ DO Ot I82.409 ACUTE EMBOLISM AND THOMBOS UNSP DEEP VN 01/25/2016 MARIANA GODINEZ DO Ot J98.4 OTHER DISORDERS OF LUNG 01/25/2016 MARIANA GODINEZ DO Ot R06.02 SHORTNESS OF BREATH 01/25/2016 MARIANA GODINEZ DO Ot R06.09 OTHER FORMS OF DYSPNEA 01/25/2016 MARIANA GODINEZ DO Ot R07.89 OTHER CHEST PAIN 02/10/2016 MARIANA GODINEZ DO Ot I82.409 ACUTE EMBOLISM AND THOMBOS UNSP DEEP VN 02/10/2016 MARIANA GODINEZ DO Ot J98.4 OTHER DISORDERS OF LUNG 02/10/2016 MARIANA GODINEZ DO Ot R06.02 SHORTNESS OF BREATH 02/10/2016 MARIANA GODINEZ DO Ot R06.09 OTHER FORMS OF DYSPNEA 02/10/2016 MARIANA GODINEZ DO Ot R07.89 OTHER CHEST PAIN 05/21/2016 REGGIE ESPANA Ot G43.009 MIGRAINE W/O AURA, NOT INTRACTABLE , W/O Procedures Code Description [place] [address] MRI EXTREMITY, LOWER RIGHT, W/O CONTRAST 03/18/2012 Quoc Oneill 03/18 61066 ROUTINE VENIPUNCTURE 03/19/2012 15895 CBC 03/19/2012 13262 LIPID PANEL 03/19 61247 CMP 03/19/2012 5790750 GFR CALC (RESULT ONLY) 03/19/2012 63931 TSH 03/19/2012 01818 JOINT INJECTION- LARGE JOINT (SPECIFY MEDCIN DESCRIPTION) 03/20/2012 OrthopChelita Ceja 04/04/2012 76964 ROUTINE VENIPUNCTURE 04/14/2012 38437 CRP 04/14/2012 ANAANA LOUISE ANALYZER (SCREEN) 04/14/2012 93506 ROUTINE VENIPUNCTURE 11/14/2012 50413 LIPID PANEL 11/14 23910 US GALLBLADDER ULTRASOUND 03/16/2013 99598 HIDA SCAN 2013 81.54 TOTAL KNEE REPLACEMENT 06/17/2013 81.92 INJECTION INTO JOINT 06/17/2013 11457 HEMOCCULT 2013 G0102 SHAKEEL- PROSTATE CA SCREENING 07/14/2013 24231 XRAY ABDOMEN, 1 VIEW (KUB) 07/14/2013 UROLOGY ZEHRA KHAN [facility] 07/20/2013 Results Test Result Range Complete blood count (CBC) with automated white blood cell (WBC) differential - 05/12/16 20:46 Blood leukocytes automated count (number/volume) 8.4 10*3/ uL 4.3-11.0 Blood erythrocytes automated count (number/volume) 4.17 10*6 /uL 4.35-5.85 Venous blood hemoglobin measurement (mass/volume) 13.5 g/dL 13.3-17.7 Blood hematocrit (volume fraction) 39 % 40-54 Automated erythrocyte mean corpuscular volume 93 [foz_us] 80-99 Automated erythrocyte mean corpuscular hemoglobin (mass per erythrocyte) 32 pg 25-34 Automated erythrocyte mean corpuscular hemoglobin concentration measurement ( mass/volume) 35 g/dL 32-36 Automated erythrocyte distribution width ratio 12.7 % 10.0-14.5 Automated blood platelet count (count/volume) 248 10*3/uL 130-400 Automated blood platelet mean volume measurement 9.5 [foz_us ] 7.4-10.4 Automated blood neutrophils/100 leukocytes 62 % 42-75 Automated blood lymphocytes/100 leukocytes 26 % 12-44 Blood monocytes/100 leukocytes 8 % 0-12 Automated blood eosinophils/100 leukocytes 3 % 0-10 Automated blood basophils/100 leukocytes 1 % 0-10 Blood neutrophils automated count (number/volume) 5.2 10*3 1.8-7.8 Blood lymphocytes automated count (number/volume) 2.2 10*3 1.0-4.0 Blood monocytes automated count (number/volume) 0.7 10*3 0.0-1.0 Automated eosinophil count 0.2 10*3/uL 0.0-0.3 Automated blood basophil count (count/volume) 0.1 10*3/uL 0.0-0.1 Comprehensive metabolic panel - 05/12/16 20:46 Serum or plasma sodium measurement (moles/volume) 137 mmol/ L 135-145 Serum or plasma potassium measurement (moles/volume) 3.9 mmol/L 3.6-5.0 Serum or plasma chloride measurement (moles/volume) 104 mmol /L 98-107 Carbon dioxide 23 mmol/L 21-32 Serum or plasma anion gap determination (moles/volume) 10 mmol/L 5-14 Serum or plasma urea nitrogen measurement (mass/volume) 21 mg/dL 7-18 Serum or plasma creatinine measurement (mass/volume) 1.11 mg /dL 0.60-1.30 Serum or plasma urea nitrogen/creatinine mass ratio 19 NRG Serum or plasma creatinine measurement with calculation of estimated glomerular filtration rate > NRG Serum or plasma glucose measurement (mass/volume) 110 mg/dL 70-105 Serum or plasma calcium measurement (mass/volume) 9.3 mg/dL 8.5-10.1 Serum or plasma total bilirubin measurement (mass/volume) 0.3 mg/dL 0.1-1.0 Serum or plasma alkaline phosphatase measurement (enzymatic activity/volume) 45 U/L 40-136 Serum or plasma aspartate aminotransferase measurement (enzymatic activity/ volume) 20 U/L 5-34 Serum or plasma alanine aminotransferase measurement (enzymatic activity/volume ) 20 U/L 0-55 Serum or plasma protein measurement (mass/volume) 6.6 g/dL 6.4-8.2 Serum or plasma albumin measurement (mass/volume) 4.0 g/dL 3.2-4.5 Magnesium - 05/12/16 20:46 Magnesium 2.2 mg/dL 1.8-2.4 Serum or plasma troponin i.cardiac measurement (mass/volume) - 05/12/16 20:46 Serum or plasma troponin i.cardiac measurement (mass/volume) < ng/mL <0.30 Complete urinalysis with reflex to culture - 05/12/16 21:27 Urine color determination YELLOW NRG Urine clarity determination CLEAR NRG Urine pH measurement by test strip 6 5- 9 Specific gravity of urine by test strip 1.015 1.016-1.022 Urine protein assay by test strip, semi-quantitative NEGATIVE NEGATIVE Urine glucose detection by automated test strip NEGATIVE NEGATIVE Erythrocytes detection in urine sediment by light microscopy NEGATIVE NEGATIVE Urine ketones detection by automated test strip NEGATIVE NEGATIVE Urine nitrite detection by test strip NEGATIVE NEGATIVE Urine total bilirubin detection by test strip NEGATIVE NEGATIVE Urine urobilinogen measurement by automated test strip (mass/volume) NORMAL NORMAL Urine leukocyte esterase detection by dipstick NEGATIVE NEGATIVE Automated urine sediment erythrocyte count by microscopy (number/high power field) NONE NRG Automated urine sediment leukocyte count by microscopy (number/high power field ) RARE NRG Bacteria detection in urine sediment by light microscopy NEGATIVE NRG Crystals detection in urine sediment by light microscopy NONE NRG Casts detection in urine sediment by light microscopy NONE NRG Mucus detection in urine sediment by light microscopy NEGATIVE NRG Complete urinalysis with reflex to culture NO NRG Encounters ACCT No. Visit Date/Time Discharge Status Pt. Type Provider Facility Loc./Unit Complaint [id number] 07/16/2013 09:38:00 07/16/2013 23: 59:59 CLS Outpatient BEAR JHAVERI MD [id number] 07/10/2013 15:54:00 07/10/2013 23: 59:59 CLS Outpatient MARK MCFARLANE DO [id number] 07/10/2013 15:54:00 07/10/2013 23: 59:59 CLS Outpatient MARK MCFARLANE DO [id number] 05/07/2013 10:19:00 05/07/2013 23: 59:59 CLS Outpatient MARK MCFARLANE DO [id number] 03/16/2013 16:01:00 03/16/2013 23: 59:59 CLS Outpatient MARK MCFARLANE DO [id number] 12/01/2012 09:56:00 12/01/2012 23: 59:59 CLS Outpatient MARK MCFARLANE DO [id number] 11/14/2012 07:55:00 11/14/2012 23: 59:59 CLS Outpatient MCFARLANE DOMARK [id number] 04/14/2012 15:53:00 04/14/2012 23: 59:59 CLS Outpatient MARK MCFARLANE DO [id number] 04/04/2012 10:40:00 04/04/2012 23: 59:59 CLS Outpatient MCFARLANE DOMARK [id number] 03/20/2012 15:08:00 03/20/2012 23: 59:59 CLS Outpatient MARK MCFARLANE DO [id number] 03/19/2012 07:41:00 03/19/2012 23: 59:59 CLS Outpatient MCFARLANE DOMARK [id number] 03/18/2012 11:41:00 03/18/2012 23: 59:59 CLS Outpatient [id number] 02/07/2012 15:20:00 02/07/2012 23: 59:59 CLS Outpatient MARK MCFARLANE DO
== END 2016-05-12 22:35 | disposition home or self-care (01) ==
LOC: EDUNIT# 20:26 → ER 20:29
DX: R42 Dizziness and giddiness (principal); I10 Essential (primary) hypertension; K08.9 Disorder of teeth and supporting structures, unspecified; Z79.899 Other long term (current) drug therapy
CPT/HCPCS: 36415; 71020; 80053; 81000; 83735; 84484; 85025; 93005

== ENCOUNTER → 2016-05-21 | Outpatient (CLI) | payer MEDICARE, OTHER ==
[~2016-05-21] MED LIST changes: +DOXY100T2 PO; +MECL12.579 PO
--- NOTE | 2016-05-21 14:40 | Diagnostic Imaging Report ---
PROCEDURE: CT head without contrast. TECHNIQUE: Multiple contiguous axial images were obtained through the brain without the use of intravenous contrast. INDICATION: Headache. Blurred vision. FINDINGS: There is no intracranial hemorrhage, edema or mass effect. The brain parenchyma and langley-white matter differentiation appear preserved. No hydrocephalus. No extra-axial fluid collections seen. From the calvarium, the paranasal sinuses and orbits visualized portions appear grossly unremarkable. IMPRESSION: Unremarkable exam. Dictated by: Dictated on workstation # [id number]
== END ==
LOC: RAD 14:08
PROVIDERS: ATTEND Nurse Practitioner Adult Health
DX: G43.009 Migraine without aura, not intractable, without status migrainosus (principal)
CPT/HCPCS: 70450

== ENCOUNTER 2016-09-27 05:41 | Outpatient (CLI) | payer MEDICARE, OTHER ==
[~2016-09-27] VITALS: Ht 182.9 cm; Wt 90.7 kg
== END 2016-09-27 11:37 ==
LOC: PREOP 05:41
PROVIDERS: ATTEND Surgery
DX: Z01.818 Encounter for other preprocedural examination (principal); R13.10 Dysphagia, unspecified

== ENCOUNTER 2016-10-01 11:45 | Day surgery (SDC) | payer MEDICARE, OTHER ==
[~2016-10-01] VITALS: Ht 182.9 cm; Wt 90.7 kg
--- OUTSIDE RECORDS SUMMARY | 2016-10-01 11:51 | XMS REPORT ---
Author Author REGGIE EPSANA Organization [facility] Address [address] [place] [address] Care Team Providers Care Concert Promoter Name Role Phone RACHANA ESPANANETTE Unavailable PROBLEMS Type Condition ICD9-CM Code XRW08-[id number] Code Onset Dates Condition Status SNOMED Code Problem Muscle spasm of both lower legs M62.838 Active 32469241 Problem Varicose veins I86.8 Active 509302097 Problem Superficial thrombosis of right lower extremity I82.811 Active 063258990 Problem Bilateral headaches R51 Active 394538480 Problem Pure hypercholesterolemia E78.00 Active 775929441 Problem GERD (gastroesophageal reflux disease) K21.9 Active 853893030 Problem HTN (hypertension) I10 Active 75805587 Problem Nocturnal hypoxia G47.34 Active 649951307 Problem Left foot pain M79.672 Active 181123279977874 Problem Restless legs G25.81 Active 07082255 Problem Chronic osteoarthritis M19.90 Active 56451728 Problem Migraine without aura and without status migrainosus, not intractable G43.009 Active 649646295 Problem BPH (benign prostatic hyperplasia) N40.0 Active 810265393 ALLERGIES No Known Allergies SOCIAL HISTORY No smoking Hx information available PLAN OF CARE VITAL SIGNS MEDICATIONS No Known Medications RESULTS Name Result Date Reference Range CBC 2016-01-26 WBC 6.1 3.4-10.8 RBC 4.54 4.14-5.80 Hemoglobin 14.2 12.6-17.7 Hematocrit 42.8 37.5-51.0 MCV 94 79-97 MCH 31.3 26.6-33.0 MCHC 33.2 31.5-35.7 RDW 13.0 12.3-15.4 Platelets 301 150-379 Neutrophils 61 Lymphs 27 Monocytes 6 Eos 4 Basos 1 Neutrophils (Absolute) 3.7 1.4-7.0 Lymphs (Absolute) 1.6 0.7-3.1 Monocytes(Absolute) 0.4 0.1-0.9 Eos (Absolute) 0.2 0.0-0.4 Baso (Absolute) 0.1 0.0-0.2 Immature Granulocytes 1 Immature Grans (Abs) 0.1 0.0-0.1 PSA 2016-01-26 Prostate Specific Ag, Serum 1.1 0.0-4.0 LIPID PANEL 2016-01-26 Cholesterol, Total 136 100-199 Triglycerides 58 0-149 HDL Cholesterol 48 >39 VLDL Cholesterol Kam 12 5-40 LDL Cholesterol Calc 76 0-99 CMP 2016-01-26 Glucose, Serum 86 65-99 BUN 21 8-27 Creatinine, Serum 1.05 0.76-1.27 eGFR If NonAfricn Am 73 >59 eGFR If Africn Am 84 >59 BUN/Creatinine Ratio 20 10-22 Sodium, Serum 141 134-144 Potassium, Serum 4.6 3.5-5.2 Chloride, Serum 101 96-106 Carbon Dioxide, Total 24 18-29 Calcium, Serum 9.4 8.6-10.2 Protein, Total, Serum 6.8 6.0-8.5 Albumin, Serum 4.3 3.6-4.8 Globulin, Total 2.5 1.5-4.5 A/G Ratio 1.7 1.1-2.5 Bilirubin, Total 0.3 0.0-1.2 Alkaline Phosphatase, S 47 39-117 AST (SGOT) 18 0-40 ALT (SGPT) 16 0-44 PROCEDURES Procedure Date Ordered Related Diagnosis Body Site LAB NOT BILLED BY [facility] Jan 26, 2016 VENIPUNCT, ROUTINE* Jan 26, 2016 IMMUNIZATIONS No Known Immunizations
[2016-10-01] MEDS ORDERED: NS IV 500 ML 500 ML ONE (12:14)
[2016-10-01 12:27] VITALS: BP 103/74
[2016-10-01] MEDS ORDERED: NS IV 500 ML 500 ML IV ONE (12:30)
--- NOTE | 2016-10-01 15:02 | History & Physicial ---
History of Present Illness History of Present Illness Reason for visit/HPI to undergo an upper endoscopy with possible balloon dilatation, regarding dysphagia. Date of Admission Date Seen by Provider: Oct 01, 2016 Time Seen by Provider: 15:00 I consulted on this patient on 10/01/16 15:00 Attending Physician Aneesh Portillo MD Admitting Physician Laurie Pimentel DO Consult Allergies and Home Medications Allergies Coded Allergies: Penicillins (Verified Allergy, Unknown, 09/05/06) clindamycin (Verified Allergy, Unknown, 05/12/16) sulfamethoxazole (Unverified Allergy, Unknown, 06/17/13) trimethoprim (Unverified Allergy, Unknown, 06/17/13) Home Medications Fenofibrate 160 Mg Tablet, 160 MG PO DAILY, (Reported) Hctz/Lisinopril 1 Tab Tablet, 1 TAB PO DAILY, (Reported) Multivitamin 1 Each Tablet, 1 TAB PO DAILY, (Reported) Ondansetron Hcl 8 Mg/Tab Tab.rapdis, 8 MG PO Q8H PRN for NAUSEA, (Reported) Pantoprazole Sodium 40 Mg Tablet.dr, 40 MG PO DAILY, (Reported) Rivaroxaban 20 Mg Tablet, 20 MG PO DAILY, (Reported) Past Juzqsog-Fwyegd-Elqcqo Hx Patient Social History Alcohol Use: Rarely Uses Recreational Drug Use: No Smoking Status: Never a Smoker Recent Foreign Travel: No Contact w/other who traveled: No Recent Hopitalizations: No Recent Infectious Disease Expo: No Immunizations Up To Date Tetanus Booster (TDap): Unknown Date of Pneumonia Vaccine: Oct 26, 2014 Date of Influenza Vaccine: Oct 26, 2014 Seasonal Allergies Seasonal Allergies: Yes Surgeries Abdominal, Adenoidectomy, Orthopedic, Tonsillectomy Cardiovascular Deep Vein Thrombosis, Hypertension Neurological Headaches /Migraines, Neuropathy Reproductive System Hx Reproductive Disorders: No Gastrointestinal Ulcer Musculoskeletal Arthritis, Back Injury HEENT HEENT Disorders: Cataract Loss of Vision: Denies Hearing Impairment: Bilateral Hearing Aide Blood Transfusions Adverse Reaction to a Blood Tr: No Family Medical History Family Hx: Family history: Cardiovascular disease 19 FATHER G8 BROTHER G8 SISTER Family history: Diabetes mellitus 19 FATHER Parkinson's disease 19 MOTHER No Family History of: Family history: Alzheimer's disease Constitutional: no symptoms reported EENTM: no symptoms reported Respiratory: no symptoms reported Gastrointestinal: dysphagia Genitourinary: no symptoms reported Musculoskeletal: no symptoms reported Skin: no symptoms reported Psychiatric/Neurological: No Symptoms Reported Physical Exam Vital Signs Vital Sign - Last 12Hours 10/01/16 12:27 Temp 96.8 Pulse 60 Resp 18 B/P (MAP) 103/74 Pulse Ox 97 O2 Delivery Room Air Capillary Refill : General Appearance: No Apparent Distress HEENT: Normal ENT Inspection Neck: Normal Inspection Respiratory: Lungs Clear Cardiovascular: Regular Rate, Rhythm Gastrointestinal: Non Tender, Soft Back: Normal Inspection Extremity: Normal Inspection Neurologic/Psychiatric: Alert, Oriented x3 Skin: Warm/Dry Assessment/Plan Assessment and Plan gentleman with dysphagia. For upper endoscopy with possible balloon dilatation Problems: ANEESH PORTILLO MD Oct 01, 2016 3:01 pm
[2016-10-01] MEDS ORDERED: fentaNYL INJECTION 100 MCG/2 ML AMP ONE (15:06)
[2016-10-01] MEDS ORDERED: MIDAZOLAM 2 MG/2 ML (VERSED) VIAL ONE ×3 (15:06→15:07)
[2016-10-01] MEDS ORDERED: HURRICAINE EXT TUBE (BENZOCAINE) ONE (15:07)
[2016-10-01] MEDS ORDERED: HURRICAINE EXT TUBE (BENZOCAINE) XX PRN (15:40)
[2016-10-01] MEDS: fentaNYL INJECTION 100 MCG/2 ML AMP IVP PRN ×2 (15:45→15:50)
[2016-10-01] MEDS: MIDAZOLAM 2 MG/2 ML (VERSED) VIAL IVP PRN ×3 (15:52→15:56)
[2016-10-01 16:40] VITALS: BP 118/72
[2016-10-01 17:05] VITALS: BP 131/63
[2016-10-01 17:10] VITALS: BP 131/63
--- NOTE | 2016-10-01 20:01 | Endo Procedure Record ---
Endo Procedure Report Date of Procedure Oct 01, 2016 Surgeon (s) ANEESH PORTILLO MD Post Procedure/Op Diagnosis Grade 2 esophagitis. Gastric erosions 2 Procedure Performed EGD with antral biopsy Description of Procedure Anesthesia Type: Conscious Sedation Specimen(s) collected/removed Antral mucosa Description of the Procedure Indication for procedure: This gentleman came in for an upper endoscopy to evaluate epigastric pain and dysphagia. In the past, he had been found to have peptic ulcers and has been on proton pump inhibitors. Informed consent was obtained after reviewing the procedures in detail. Description of the procedure: He was placed in left lateral decubitus position and his vital signs were monitored. Conscious sedation was achieved using Versed and fentanyl. The flexible gastroscope was then introduced down the esophagus, past the stomach, into the proximal duodenum Findings: Esophagus: Grade 2 esophagitis with a short hiatal hernia. Stomach: 2 shallow gastric erosions of the antrum. Biopsy for H. pylori was obtained. Duodenum: Normal He tolerated the procedure well and was taken back to the nursing area in a stable condition Impression: Dysphagia, no stricture. Grade 2 esophagitis and gastric erosions. Helicobacter status. Recommend continuing current regimen of proton pump inhibitor therapy. Copies To: MARK MCFARLANE XAVIER M MD Oct 01, 2016 8:01 pm
== END 2016-10-01 17:10 | disposition home or self-care (01) ==
LOC: ENDO 11:45
PROVIDERS: ATTEND Surgery
DX: K20.9 Esophagitis, unspecified (principal); K44.9 Diaphragmatic hernia without obstruction or gangrene; K25.9 Gastric ulcer, unspecified as acute or chronic, without hemorrhage or perforation; I10 Essential (primary) hypertension

== ENCOUNTER 2016-12-10 12:25 | Emergency (ER) | payer MEDICARE, OTHER ==
[~2016-12-10] VITALS: Ht 172.7 cm; Wt 79.4 kg
--- OUTSIDE RECORDS SUMMARY | 2016-12-10 12:33 | XMS REPORT ---
Author Author REGGIE ESPANA Organization [facility] Address [address] [place] [address] Care Team Providers Care Cage Manager Name Role Phone JOVI REGGIE Unavailable PROBLEMS Type Condition ICD9-CM Code [id number] Code Onset Dates Condition Status SNOMED Code Problem Muscle spasm of both lower legs M62.838 Active 84622719 Problem Varicose veins I86.8 Active 864580259 Problem Superficial thrombosis of right lower extremity I82.811 Active 100136626 Problem Pure hypercholesterolemia E78.00 Active 046077406 Problem Bilateral headaches R51 Active 467194134 Problem HTN (hypertension) I10 Active 62295168 Problem GERD (gastroesophageal reflux disease) K21.9 Active 764300546 Problem Left foot pain M79.672 Active 418954185181232 Problem Nocturnal hypoxia G47.34 Active 748145960 Problem Restless legs G25.81 Active 69235086 Problem Chronic osteoarthritis M19.90 Active 56784199 Problem Migraine without aura and without status migrainosus, not intractable G43.009 Active 024977397 Problem BPH (benign prostatic hyperplasia) N40.0 Active 584770476 ALLERGIES Unknown Allergies SOCIAL HISTORY No smoking Hx information available PLAN OF CARE VITAL SIGNS MEDICATIONS Medication Instructions Dosage Frequency Start Date End Date Duration Status Xarelto 15 MG Orally 2 times a day 1 tablet with food 12h Dec, 90 days Active RESULTS No Results PROCEDURES No Known procedures IMMUNIZATIONS No Known Immunizations
--- OUTSIDE RECORDS SUMMARY | 2016-12-10 12:35 | XMS REPORT ---
Author Author REGGIE ESPANA Organization [facility] Address [address] [place] [address] Care Team Providers Care Relay Associate Name Role Phone RACHANA ESPANANETTE Unavailable PROBLEMS Type Condition ICD9-CM Code KZU45-SW Code Onset Dates Condition Status SNOMED Code Problem Muscle spasm of both lower legs M62.838 Active 73737963 Problem Varicose veins I86.8 Active 770515846 Problem Superficial thrombosis of right lower extremity I82.811 Active 734900012 Problem Pure hypercholesterolemia E78.00 Active 090637530 Problem Bilateral headaches R51 Active 261426624 Problem HTN (hypertension) I10 Active 01247892 Problem GERD (gastroesophageal reflux disease) K21.9 Active 342221601 Problem Left foot pain M79.672 Active 718280477222438 Problem Nocturnal hypoxia G47.34 Active 240087923 Problem Restless legs G25.81 Active 05252172 Problem Chronic osteoarthritis M19.90 Active 27818618 Problem Migraine without aura and without status migrainosus, not intractable G43.009 Active 536875808 Problem BPH (benign prostatic hyperplasia) N40.0 Active 352135596 ALLERGIES No Information SOCIAL HISTORY Never Assessed PLAN OF CARE VITAL SIGNS MEDICATIONS No Known Medications RESULTS No Results PROCEDURES No Known procedures IMMUNIZATIONS No Known Immunizations MEDICAL (GENERAL) HISTORY Type Description Date Medical History hypertension Medical History superficial thrombus LLE (05/2010) Medical History varicose veins Medical History heartburn Medical History osteoarthritis Medical History headache syndrome Medical History hepatitis B (dx 05/2010) Surgical History left knee arthroscopy 04/2012 Surgical History tonsillectomy Surgical History spine surgery d/t fracture Surgical History right leg plate Surgical History Left knee replaced Hospitalization History H/A, myalgia, elevated LFTs/Hep B IgM positive, temploral artery bx negative
--- OUTSIDE RECORDS SUMMARY | 2016-12-10 12:37 | XMS REPORT ---
Author Author REGGIE ESPANA Organization [facility] Address [address] [place] [address] Care Team Providers Care Cadmium Burner Name Role Phone RACHANA ESPANANETTE Unavailable PROBLEMS Type Condition ICD9-CM Code SEZ60-LA Code Onset Dates Condition Status SNOMED Code Problem Muscle spasm of both lower legs M62.838 Active 18569008 Problem Varicose veins I86.8 Active 340502342 Problem Superficial thrombosis of right lower extremity I82.811 Active 215550607 Problem Pure hypercholesterolemia E78.00 Active 420702145 Problem Bilateral headaches R51 Active 150651813 Problem HTN (hypertension) I10 Active 84615880 Problem GERD (gastroesophageal reflux disease) K21.9 Active 634562419 Problem Left foot pain M79.672 Active 678898283107334 Problem Nocturnal hypoxia G47.34 Active 401656290 Problem Restless legs G25.81 Active 68982336 Problem Chronic osteoarthritis M19.90 Active 75856322 Problem Migraine without aura and without status migrainosus, not intractable G43.009 Active 782482908 Problem BPH (benign prostatic hyperplasia) N40.0 Active 522482665 ALLERGIES No Information SOCIAL HISTORY Never Assessed [...]
[2016-12-10 12:40] LABS: BASOPHILS # (AUTO) 0.1 10^3/uL (0.0-0.1); BASOPHILS % (AUTO) 0 % (0-10); EOSINOPHILS % (AUTO) 0 % (0-10); LYMPHOCYTES # (AUTO) 1.1 X 10^3 (1.0-4.0); LYMPHOCYTES % (AUTO) 10 % (12-44); MEAN CORPUSCULAR HEMOGLOBIN 32 PG (25-34); MEAN CORPUSCULAR HGB CONC 35 G/DL (32-36); MEAN CORPUSCULAR VOLUME 92 FL (80-99); MEAN PLATELET VOLUME 8.9 FL (7.4-10.4); MONOCYTES # (AUTO) 0.6 X 10^3 (0.0-1.0); MONOCYTES % (AUTO) 5 % (0-12); NEUTROPHILS # (AUTO) 9.4 X 10^3 (1.8-7.8); NEUTROPHILS % (AUTO) 84 % (42-75); PLATELET COUNT 315 10^3/uL (130-400); RED BLOOD COUNT 4.42 10^6/uL (4.35-5.85); RED CELL DISTRIBUTION WIDTH 12.8 % (10.0-14.5); WHITE BLOOD COUNT 11.2 10^3/uL (4.3-11.0)
--- NOTE | 2016-12-10 12:40 | ED Trauma-Multisystem ---
General Chief Complaint: Trauma POV Arrival Activation Stated Complaint: KICKED IN HEAD AND CHEST BY COW Source of Information: Patient Exam Limitations: No Limitations History of Present Illness Time Seen by Provider: 12:38 Initial Comments To ER with reports of being struck in the chest, left flank and head with a gait. He was unloading a cow after taking it to the cheesemaker helper's. The cow then kicked the gate open which struck this gentleman. He did lose consciousness briefly but only for a few seconds. He is on xarelto. His current complaint is of a clicking sensation in the center of his chest when he takes a breath and pain to this location, pain to the head and pain to the left flank. This occurred about 1 hour prior to arrival to ER. Occurred: Just Prior to Arrival Severity: Moderate Associated Symptoms (Fall): Abdominal Pain, Chest Pain, No Confusion, No Dizziness, Headache, No Neck Pain Allergies and Home Medications Allergies Coded Allergies: Penicillins (Verified Allergy, Unknown, 09/05/06) clindamycin (Verified Allergy, Unknown, 05/12/16) sulfamethoxazole (Unverified Allergy, Unknown, 06/17/13) trimethoprim (Unverified Allergy, Unknown, 06/17/13) Home Medications Fenofibrate 160 Mg Tablet, 160 MG PO DAILY, (Reported) Hctz/Lisinopril 1 Tab Tablet, 1 TAB PO DAILY, (Reported) Hydrocodone/Acetaminophen 1 Each Tablet, 1 EACH PO Q6H PRN for PAIN-MODERATE TO SEVERE, #10 Prescribed by: SIDNEY REAGAN on 12/10/16 1358 Multivitamin 1 Each Tablet, 1 TAB PO DAILY, (Reported) Ondansetron Hcl 8 Mg/Tab Tab.rapdis, 8 MG PO Q8H PRN for NAUSEA, (Reported) Pantoprazole Sodium 40 Mg Tablet.dr, 40 MG PO DAILY, (Reported) Rivaroxaban 20 Mg Tablet, 20 MG PO DAILY, (Reported) Constitutional: see HPI Eyes: No Symptoms Reported Ears: No Symptoms Reported Nose: No Symptoms Reported Mouth: No Symptoms Reported Throat: No Symptoms to Report Respiratory: no symptoms reported Cardiovascular: No Symptoms Reported Genitourinary: no symptoms reported Musculoskeletal: no symptoms reported Skin: no symptoms reported Psychiatric/Neurological: No Symptoms Reported Past Wcljfdg-Dfdvbb-Pvqevb Hx Patient Social History Recent Foreign Travel: No Contact w/Someone Who Travel: No Recent Hopitalizations: No Immunizations Up To Date Tetanus Booster (TDap): Unknown Date of Pneumonia Vaccine: Oct 26, 2014 Date of Influenza Vaccine: Oct 26, 2014 Seasonal Allergies Seasonal Allergies: Yes Surgeries Surgeries: Abdominal, Adenoidectomy, Orthopedic, Tonsillectomy Cardiovascular Cardiac Disorders: Deep Vein Thrombosis, Hypertension Neurological Neurological Disorders: Headaches /Migraines, Neuropathy Reproductive System Hx Reproductive Disorders: No Gastrointestinal Gastrointestinal Disorders: Ulcer Musculoskeletal Musculoskeletal Disorders: Arthritis, Back Injury HEENT HEENT Disorders: Cataract Loss of Vision: Denies Hearing Impairment: Bilateral Hearing Aide Blood Transfusions Adverse Reaction to a Blood Tr: No Family Medical History Family Medial History: Family history: Cardiovascular disease 19 FATHER G8 BROTHER G8 SISTER Family history: Diabetes mellitus 19 FATHER Parkinson's disease 19 MOTHER No Family History of: Family history: Alzheimer's disease Physical Exam General Appearance: No Apparent Distress, WD/WN Head: Other (Muscles are intact. There is a laceration over the lateral aspect of the left eyebrow.) Eyes: Bilateral Eye Normal Inspection, Bilateral Eye PERRL, Bilateral Eye EOMI Ears, Nose, Throat: Hearing Grossly Normal, No Evidence of ENT Injury Neck: Full Range of Motion, Normal Inspection, No Tender Lateral, No Tender Midline Cardiovascular: Regular Rate, Rhythm, No Edema, Normal Peripheral Pulses, Other (center of his chest is tender to palpation but there is no crepitus, lungs sounds are equal in all kendrick, no ecchymosis or abrasions.) Respiratory: Normal Breath Sounds, No Accessory Muscle Use, No Respiratory Distress Gastrointestinal: Normal Bowel Sounds, Soft, Tenderness (there is some tenderness to the left upper quadrant) Extremity: Normal Capillary Refill, Normal Inspection Neurologic/Psychiatric: Alert, Oriented x3 Skin: Normal Color, Warm/Dry Comments No abrasions or ecchymosis or erythema to any part of the torso. Does have a small laceration to the left lateral eyebrow. Wheelwright Coma Score Best Eye Response (Benito): (4) Open Spontaneously Best Verbal Response (Ebnito): (5) Oriented Best Motor Response (Wheelwright): (6) Obeys Commands Wheelwright Total: 15 Laceration Repair : Wound Location: Face Wound Length (cm): 1 Wound's Depth, Shape: sub Q Irrigated w/ Saline (ccs): 50 Betadine Prep?: Yes Anesthesia: 1% Lidocaine Suture: Prolene Suture Size: 5-0 Number of Sutures: 3 Layer Closure?: 1 Number Deep Layer Sutures: 0 Progress Anesthetized with 1 mL of 1 percent lidocaine without epinephrine. Wound is irrigated with 60 mL of saline and scrubbed with her vaccines are same solution. Closed with 3 simple a ruptured sutures. Progress/Results/Core Measures Results/Orders Lab Results Laboratory Tests Test 12/10/16 12:34 Range/Units White Blood Count 11.2 H 4.3-11.0 10^3/uL Red Blood Count 4.42 4.35-5.85 10^6/uL Hemoglobin 14.1 13.3-17.7 G/DL Hematocrit 41 40-54 % Mean Corpuscular Volume 92 80-99 FL Mean Corpuscular Hemoglobin 32 25-34 PG Mean Corpuscular Hemoglobin Concent 35 32-36 G/DL Red Cell Distribution Width 12.8 10.0-14.5 % Platelet Count 315 130-400 10^3/uL Mean Platelet Volume 8.9 7.4-10.4 FL Neutrophils (%) (Auto) 84 H 42-75 % Lymphocytes (%) (Auto) 10 L 12-44 % Monocytes (%) (Auto) 5 0-12 % Eosinophils (%) (Auto) 0 0-10 % Basophils (%) (Auto) 0 0-10 % Neutrophils # (Auto) 9.4 H 1.8-7.8 X 10^3 Lymphocytes # (Auto) 1.1 1.0-4.0 X 10^3 Monocytes # (Auto) 0.6 0.0-1.0 X 10^3 Eosinophils # (Auto) 0.0 0.0-0.3 10^3/uL Basophils # (Auto) 0.1 0.0-0.1 10^3/uL Sodium Level 134 L 135-145 MMOL/L Potassium Level 4.1 3.6-5.0 MMOL/L Chloride Level 103 98-107 MMOL/L Carbon Dioxide Level 22 21-32 MMOL/L Anion Gap 9 5-14 MMOL/L Blood Urea Nitrogen 19 H 7-18 MG/DL Creatinine 1.01 0.60-1.30 MG/DL Estimat Glomerular Filtration Rate > 60 BUN/Creatinine Ratio 19 Glucose Level 105 70-105 MG/DL Calcium Level 9.7 8.5-10.1 MG/DL Total Bilirubin 0.5 0.1-1.0 MG/DL Aspartate Amino Transf (AST/SGOT) 19 5-34 U/L Alanine Aminotransferase (ALT/SGPT) 22 0-55 U/L Alkaline Phosphatase 39 L 40-136 U/L Total Protein 7.4 6.4-8.2 GM/DL Albumin 4.3 3.2-4.5 GM/DL My Orders Orders - SIDNEY REAGAN CAFE COOK Cbc With Automated Diff (12/10/16 12:35) Comprehensive Metabolic Panel (12/10/16 12:35) Saline Lock/Iv-Start (12/10/16 12:35) Ekg Tracing (12/10/16 12:35) Ct Head/Cervical Spine Wo (12/10/16 12:35) Ct Chest/Abdomen/Pelvis W (12/10/16 12:35) Chest 1 View, Ap/Pa Only (12/10/16 12:35) Iohexol Injection (Omnipaque 350 Mg/Ml 1 (12/10/16 13:00) Ns (Ivpb) (Sodium Chloride 0.9% Ivpb Bag (12/10/16 13:00) Dipht,Pertuss(Acell),Tet Adult (Boostrix (12/10/16 14:00) Lidocaine 2% Injection 20 Ml (Xylocaine (12/10/16 13:56) Medications Given in ED Current Medications Medications Dose Ordered Sig/Caryl Route Start Time Stop Time Status Last Admin Dose Admin Diphtheria/ Tetanus/Acell Pertussis 0.5 ml ONCE ONCE IM 12/10/16 14:00 12/10/16 14:01 DC 12/10/16 14:14 0.5 ML Iohexol 100 ml ONCE ONCE IV 12/10/16 13:00 12/10/16 13:01 DC 12/10/16 13:01 100 ML Lidocaine HCl 20 ml STK-MED ONCE .ROUTE 12/10/16 13:56 12/10/16 14:05 DC 12/10/16 14:15 20 ML Sodium Chloride 100 ml ONCE ONCE IV 12/10/16 13:00 12/10/16 13:01 DC 12/10/16 13:02 80 ML Diagnostic Imaging Diagonstic Imaging: Xray, CT Comments NAME: KELLIE FLETCHER [facility] REC#: [id number] PT STATUS: REG ER : 1945 PHYSICIAN: SIDNEY REAGAN APRN ADMIT DATE: 12/10/16/ER Draft Date of Exam:12/10/16 CHEST 1 VIEW, AP/PA ONLY Portable upright radiograph of the chest. INDICATION: Chest pain. FINDINGS: The lungs demonstrate no focal consolidation. There is mild interstitial thickening that appears to be chronic and old left rib fractures and old left clavicle fracture with internal fixation hardware in place. The heart size is normal. No effusion or pneumothorax. The mediastinum and mariya appear unremarkable. IMPRESSION: No acute process. Dictated on workstation # [id number] Dict: 12/10/16 1302 Trans: 12/10/16 1305 [id number] Interpreted by: ILDA GROVES MD Electronically signed by: NAME: KELLIE FLETCHER [facility] REC#: [id number] PT STATUS: REG ER : 1945 PHYSICIAN: SIDNEY REAGAN APRN ADMIT DATE: 12/10/16/ER Draft Date of Exam:12/10/16 CT CHEST/ABDOMEN/PELVIS W PROCEDURE: CT chest, abdomen, and pelvis with contrast. TECHNIQUE: Multiple contiguous axial images were obtained through the chest, abdomen, and pelvis after the administration of intravenous contrast. INDICATION: Injury. FINDINGS: CT CHEST: There is no significant consolidation or lung contusion. Minimal dependent atelectasis is noted bilaterally. No mediastinal hematoma. There is no mediastinal mass or significantly enlarged lymph node. Calcified granulomas in the left lung base and left hilum and mediastinum are seen. No hilar or axillary lymphadenopathy. There are bilateral old rib fractures. The thoracic aorta is normal in caliber and contour. The heart size is normal. No pleural or pericardial effusion or hemorrhage. CT ABDOMEN AND PELVIS: The liver, the gallbladder, the spleen, the adrenal glands, and the pancreas appear unremarkable. The kidneys have symmetric contrast enhancement and excretion. There is no hydronephrosis. The abdominal aorta is normal in caliber. No para-aortic significantly enlarged lymph nodes seen. The bladder appears unremarkable. There is slight enlargement in the prostate gland measuring 4.9 cm in transverse dimension. No bowel obstruction. There is no retroperitoneal hematoma or hematoma or free fluid in the peritoneal cavity. There are markers of mesh near the anterior abdominal wall along the inguinal areas suggestive of prior inguinal hernia repair with a mesh. The osseous structures demonstrate compression fracture of L2 vertebral body, stable from MRI of the 06/07/2015. IMPRESSION: CT CHEST: No acute process. CT ABDOMEN AND PELVIS: No hemorrhage or solid organ laceration. Unremarkable exam. Dictated on workstation # [id number] Dict: 12/10/16 1321 Trans: 12/10/16 1334 [id number] Interpreted by: ILDA GROVES MD Electronically signed by: Departure Communication (Admissions) Progress Notes NAME: KELLIE FLETCHER [facility] REC#: [id number] PT STATUS: REG ER : 1945 PHYSICIAN: SIDNEY REAGAN APRN ADMIT DATE: 12/10/16/ER Draft Date of Exam:12/10/16 CT HEAD/CERVICAL SPINE WO PROCEDURE: CT head and CT cervical spine without contrast. TECHNIQUE: Multiple contiguous axial images were obtained through the brain and cervical spine without the use of intravenous contrast. Sagittal and coronal reformations through the cervical spine were then performed. INDICATION: Injury. FINDINGS: CT head: There is no intracranial hemorrhage, edema or mass effect. The brain parenchyma and langley-white matter differentiation is preserved. No hydrocephalus. No extra-axial fluid collection is seen. The calvarium, the paranasal sinuses and orbits visualized portions appear unremarkable. CT cervical spine: There is satisfactory alignment of the upper and mid cervical spine. At C7/T1, there is minimal anterior translation at the posterior spinal line, however. At this level, there is mild disc height loss and posterior osteophyte is seen. There is also degenerative change at the facet joints bilaterally. This is probably degenerative related. There is satisfactory alignment of the lateral masses of C1 and C2 and the atlantooccipital joints. There is congenital incomplete fusion of the posterior arch of C1. The vertebral body heights are preserved. Multilevel mild disc height loss is seen and minimal posterior osteophytes. No fracture is seen. The paravertebral soft tissues appear unremarkable. IMPRESSION: 1. CT head: Unremarkable exam. 2. CT cervical spine: There is minimal anterior translation of C7 over T1, probably degenerative related. Disc and facet joint degenerative changes are seen. No fracture identified. Dictated on workstation # [id number] Dict: 12/10/16 1311 Trans: 12/10/16 1324 [facility] [id number] Interpreted by: ILDA GROVES MD Electronically signed by: Impression Impression: Primary Impression: Eyebrow laceration Additional Impression: Chest wall contusion Disposition: 01 HOME, SELF-CARE Condition: Stable Departure-Patient Inst. Decision time for Depature: 13:57 Referrals: MARK MCFARLANE DO (PCP) Primary Care Physician REGGIE ESPANA (Family) Primary Care Physician Patient Instructions: NO INSTRUCTIONS GIVEN Add. Discharge Instructions: 1. Return to ER for any concerns or any worsening symptoms 2. Pain medication as directed 3. Have stitches removed in 5 days. You may return to ER for this. All discharge instructions reviewed with patient and/or family. Voiced understanding. Scripts Cephalexin (Keflex) 500 Mg Capsule 500 MG PO TID, #15 CAP Prov: SIDNEY REAGAN CAFE COOK 12/10/16 Hydrocodone/Acetaminophen ([place] 5-325 Tablet) 1 Each Tablet 1 EACH PO Q6H Y for PAIN-MODERATE TO SEVERE, #10 TAB Prov: SIDNEY REAGAN CAFE COOK 12/10/16 SIDNEY REAGAN APRN Dec 10, 2016 12:40
[2016-12-10] MEDS ORDERED: NS 100 ML (IVPB) BAG IV ONE (13:00)
[2016-12-10] MEDS ORDERED: IOHEXOL 350 MG/ML 100 ML (OMNIPAQUE 350) VIAL IV ONE (13:00)
--- NOTE | 2016-12-10 13:05 | Diagnostic Imaging Report ---
Portable upright radiograph of the chest. INDICATION: Chest pain. FINDINGS: The lungs demonstrate no focal consolidation. There is mild interstitial thickening that appears to be chronic and old left rib fractures and old left clavicle fracture with internal fixation hardware in place. The heart size is normal. No effusion or pneumothorax. The mediastinum and mariya appear unremarkable. IMPRESSION: No acute process. Dictated by: Dictated on workstation # [id number]
[2016-12-10 13:11] LABS: ALANINE AMINOTRANSFERASE 22 U/L (0-55); ALBUMIN 4.3 GM/DL (3.2-4.5); ANION GAP 9 MMOL/L (5-14); ASPARTATE AMINO TRANSFERASE 19 U/L (5-34); BILIRUBIN,TOTAL 0.5 MG/DL (0.1-1.0); BLOOD UREA NITROGEN 19 MG/DL (7-18); BUN/CREATININE RATIO 19; CALCIUM 9.7 MG/DL (8.5-10.1); CARBON DIOXIDE 22 MMOL/L (21-32); CHLORIDE 103 MMOL/L (98-107); CREATININE SERUM 1.01 MG/DL (0.60-1.30); GFR ESTIMATED > 60; GLUCOSE 105 MG/DL (70-105); POTASSIUM 4.1 MMOL/L (3.6-5.0); SODIUM 134 MMOL/L (135-145); TOTAL PROTEIN 7.4 GM/DL (6.4-8.2)
--- NOTE | 2016-12-10 13:25 | Diagnostic Imaging Report ---
PROCEDURE: CT head and CT cervical spine without contrast. TECHNIQUE: Multiple contiguous axial images were obtained through the brain and cervical spine without the use of intravenous contrast. Sagittal and coronal reformations through the cervical spine were then performed. INDICATION: Injury. FINDINGS: CT head: There is no intracranial hemorrhage, edema or mass effect. The brain parenchyma and langley-white matter differentiation is preserved. No hydrocephalus. No extra-axial fluid collection is seen. The calvarium, the paranasal sinuses and orbits visualized portions appear unremarkable. CT cervical spine: There is satisfactory alignment of the upper and mid cervical spine. At C7/T1, there is minimal anterior translation at the posterior spinal line, however. At this level, there is mild disc height loss and posterior osteophyte is seen. There is also degenerative change at the facet joints bilaterally. This is probably degenerative related. There is satisfactory alignment of the lateral masses of C1 and C2 and the atlantooccipital joints. There is congenital incomplete fusion of the posterior arch of C1. The vertebral body heights are preserved. Multilevel mild disc height loss is seen and minimal posterior osteophytes. No fracture is seen. The paravertebral soft tissues appear unremarkable. IMPRESSION: 1. CT head: Unremarkable exam. 2. CT cervical spine: There is minimal anterior translation of C7 over T1, probably degenerative related. Disc and facet joint degenerative changes are seen. No fracture identified. Dictated by: Dictated on workstation # [id number]
--- NOTE | 2016-12-10 13:34 | Diagnostic Imaging Report ---
PROCEDURE: CT chest, abdomen, and pelvis with contrast. TECHNIQUE: Multiple contiguous axial images were obtained through the chest, abdomen, and pelvis after the administration of intravenous contrast. INDICATION: Injury. FINDINGS: CT CHEST: There is no significant consolidation or lung contusion. Minimal dependent atelectasis is noted bilaterally. No mediastinal hematoma. There is no mediastinal mass or significantly enlarged lymph node. Calcified granulomas in the left lung base and left hilum and mediastinum are seen. No hilar or axillary lymphadenopathy. There are bilateral old rib fractures. The thoracic aorta is normal in caliber and contour. The heart size is normal. No pleural or pericardial effusion or hemorrhage. CT ABDOMEN AND PELVIS: The liver, the gallbladder, the spleen, the adrenal glands, and the pancreas appear unremarkable. The kidneys have symmetric contrast enhancement and excretion. There is no hydronephrosis. The abdominal aorta is normal in caliber. No para-aortic significantly enlarged lymph nodes seen. The bladder appears unremarkable. There is slight enlargement in the prostate gland measuring 4.9 cm in transverse dimension. No bowel obstruction. There is no retroperitoneal hematoma or hematoma or free fluid in the peritoneal cavity. There are markers of mesh near the anterior abdominal wall along the inguinal areas suggestive of prior inguinal hernia repair with a mesh. The osseous structures demonstrate compression fracture of L2 vertebral body, stable from MRI of the 06/07/2015. IMPRESSION: CT CHEST: No acute process. CT ABDOMEN AND PELVIS: No hemorrhage or solid organ laceration. Unremarkable exam. Dictated by: Dictated on workstation # [id number]
[2016-12-10] MEDS ORDERED: LIDOCAINE 2% 20 ML (XYLOCAINE) VIAL ONE (13:56)
[2016-12-10] MEDS ORDERED: HYDR-757 PO (13:58)
[2016-12-10] MEDS ORDERED: TETANUS,DIPTH,PERTUSS P/F (BOOSTRIX) 0.5 ML VIAL IM ONE (14:00)
[2016-12-10] MEDS ORDERED: CEPH-507 PO (14:24)
[2016-12-10 14:36] VITALS: BP 136/86
== END 2016-12-10 14:36 | disposition home or self-care (01) ==
LOC: EDUNIT# 12:25 → ER 12:27
DX: S01.112A Laceration without foreign body of left eyelid and periocular area, initial encounter (principal); S20.219A Contusion of unspecified front wall of thorax, initial encounter; I10 Essential (primary) hypertension; G43.909 Migraine, unspecified, not intractable, without status migrainosus; M19.90 Unspecified osteoarthritis, unspecified site; Z23 Encounter for immunization; Z82.49 Family history of ischemic heart disease and other diseases of the circulatory system; Z86.718 Personal history of other venous thrombosis and embolism; Z79.01 Long term (current) use of anticoagulants; Z90.89 Acquired absence of other organs; W22.09XA Striking against other stationary object, initial encounter
CPT/HCPCS: 12001; 36415; 70450; 71010; 71260; 72125; 74177; 80053; 85025; 90715; 93005

== ENCOUNTER → 2017-10-16 | Outpatient (CLI) | payer MEDICARE, OTHER ==
[~2017-10-16] MED LIST changes: +CEPH-507 PO; +HYDR-4226 PO
--- NOTE | 2017-10-16 17:38 | Diagnostic Imaging Report ---
INDICATION: Difficulty breathing. PA and lateral chest obtained at 2:50 p.m. is compared to 12/10/2016. FINDINGS: Heart is normal in size. The aorta is tortuous. The lungs are clear. There is no pneumothorax or pleural fluid. There are old left-sided rib fractures. There are postsurgical changes in the left clavicle. IMPRESSION: Normal heart size. No focal infiltrate or pneumothorax or pleural fluid. Old left-sided rib fractures are noted. Dictated by: Dictated on workstation # [id number]
== END ==
LOC: RAD 14:19
PROVIDERS: ATTEND Nurse Practitioner Family
DX: S22.42XA Multiple fractures of ribs, left side, initial encounter for closed fracture (principal); J98.4 Other disorders of lung; R06.02 Shortness of breath; Z98.890 Other specified postprocedural states
CPT/HCPCS: 71046

== ENCOUNTER → 2017-10-25 | Outpatient (CLI) | payer MEDICARE, OTHER ==
[~2017-10-25] MED LIST changes: +RT-ALBUTEROL SULF 2.5 MG/3 ML PRE-MIX VIAL INH ONE
== END ==
LOC: RT 11:12
PROVIDERS: ATTEND Nurse Practitioner Family
DX: J98.4 Other disorders of lung (principal); R09.02 Hypoxemia; R06.02 Shortness of breath; R06.09 Other forms of dyspnea
CPT/HCPCS: 94060; 94726; 94729

== ENCOUNTER → 2017-11-06 | Outpatient (CLI) | payer MEDICARE, OTHER ==
[~2017-11-06] MED LIST changes: +IOHEXOL 350 MG/ML 150 ML (OMNIPAQUE 350) VIAL IV ONE; +NS 250 ML (IVPB) BAG IV ONE; -RT-ALBUTEROL SULF 2.5 MG/3 ML PRE-MIX VIAL INH ONE
[2017-11-06 13:55] LABS: BUN/CREATININE RATIO 18; CREATININE SERUM 0.98 MG/DL (0.60-1.30); GFR ESTIMATED > 60
--- NOTE | 2017-11-06 15:12 | Diagnostic Imaging Report ---
PROCEDURE: CT angiography of the chest with contrast. TECHNIQUE: Multiple contiguous axial images were obtained through the chest after uneventful bolus administration of intravenous contrast. 2D reconstructed CTA MIP acquisitions were also performed. INDICATION: Shortness of breath. FINDINGS: The previous CT chest exam of 12/10/2016 failed to show any sign of an acute cardiopulmonary abnormality. On this exam, the heart size is within normal limits and stable when compared to the prior study. The ascending aorta is not abnormally dilated measuring 3.6 x 3.8 cm. There is no sign of a dissection. There is no defect within the pulmonary arteries to indicate a pulmonary embolus. The lungs are clear. There is no sign of failure, pneumonia or pleural effusion. There is no mediastinal or hilar adenopathy. The thyroid gland is generally unremarkable. The sections through the upper abdomen fail to show any sign of an acute abnormality. The liver is of lower density than usually seen and this does suggest fatty metamorphosis. The bone windows are unremarkable for a fracture or for a destructive lesion. There are multiple healed rib fractures on the left. There is also an orthopedic plate and screw fixation device. IMPRESSION: There is no evidence for an acute cardiopulmonary abnormality. In particular, there is no sign of a pulmonary embolus or of a dissection. Dictated by: Dictated on workstation # [id number]
== END ==
LOC: RAD 12:44
PROVIDERS: ATTEND Nurse Practitioner Family
DX: J98.4 Other disorders of lung (principal); R06.02 Shortness of breath; Z96.7 Presence of other bone and tendon implants; Z87.828 Personal history of other (healed) physical injury and trauma
CPT/HCPCS: 36415; 71275; 82565; 84520

== ENCOUNTER → 2017-11-28 | Outpatient (CLI) | payer MEDICARE, OTHER ==
[~2017-11-28] MED LIST changes: -IOHEXOL 350 MG/ML 150 ML (OMNIPAQUE 350) VIAL IV ONE; -NS 250 ML (IVPB) BAG IV ONE
== END ==
LOC: CARD 12:56
PROVIDERS: ATTEND Nurse Practitioner Family
DX: R06.09 Other forms of dyspnea (principal); J98.4 Other disorders of lung; I08.1 Rheumatic disorders of both mitral and tricuspid valves
CPT/HCPCS: 93306

== ENCOUNTER → 2017-12-10 | Outpatient (CLI) | payer MEDICARE, OTHER ==
[~2017-12-10] MED LIST changes: +CATHETER FLUSH 10 ML SYR IV PRN; +REGADENOSON 0.4 MG/5 ML SYR (LEXISCAN) IV ONE
[2017-12-10 07:30] LABS: BASOPHILS % (AUTO) 1 % (0-10); EOSINOPHILS # (AUTO) 0.3 10^3/uL (0.0-0.3); EOSINOPHILS % (AUTO) 5 % (0-10); HEMATOCRIT 41 % (40-54); HEMOGLOBIN 14.1 G/DL (13.3-17.7); LYMPHOCYTES # (AUTO) 1.7 X 10^3 (1.0-4.0); LYMPHOCYTES % (AUTO) 27 % (12-44); MEAN CORPUSCULAR HEMOGLOBIN 32 PG (25-34); MEAN CORPUSCULAR HGB CONC 35 G/DL (32-36); MEAN CORPUSCULAR VOLUME 92 FL (80-99); MEAN PLATELET VOLUME 8.8 FL (7.4-10.4); MONOCYTES # (AUTO) 0.5 X 10^3 (0.0-1.0); MONOCYTES % (AUTO) 7 % (0-12); NEUTROPHILS # (AUTO) 3.8 X 10^3 (1.8-7.8); NEUTROPHILS % (AUTO) 61 % (42-75); PLATELET COUNT 248 10^3/uL (130-400); RED BLOOD COUNT 4.46 10^6/uL (4.35-5.85); RED CELL DISTRIBUTION WIDTH 13.6 % (10.0-14.5); WHITE BLOOD COUNT 6.2 10^3/uL (4.3-11.0)
[2017-12-10 07:49] LABS: ALANINE AMINOTRANSFERASE 29 U/L (0-55); ALBUMIN 4.3 GM/DL (3.2-4.5); ALKALINE PHOSPHATASE 35 U/L (40-136); BILIRUBIN,TOTAL 0.9 MG/DL (0.1-1.0); BUN/CREATININE RATIO 17; CALCIUM 9.8 MG/DL (8.5-10.1); CARBON DIOXIDE 22 MMOL/L (21-32); CHLORIDE 107 MMOL/L (98-107); CHOLESTEROL 152 MG/DL (< 200); CREATININE SERUM 1.06 MG/DL (0.60-1.30); GFR ESTIMATED > 60; GLUCOSE 95 MG/DL (70-105); HDL CHOLESTEROL 46 MG/DL (40-60); POTASSIUM 3.9 MMOL/L (3.6-5.0); SODIUM 139 MMOL/L (135-145); TOTAL PROTEIN 6.9 GM/DL (6.4-8.2); TRIGLYCERIDES 102 MG/DL (<150); VLDL CHOLESTEROL 20 MG/DL (5-40)
[2017-12-10 08:12] LABS: ERYTHROCYTE SEDIMENTATION RATE 8 MM/HR (0-30)
--- NOTE | 2017-12-10 20:37 | STRESS TEST ---
DATE OF SERVICE: 12/10/2017 RESTING AND POST REGADENOSON TECHNETIUM-99M TETROFOSMIN SPECT CT IMAGING CLINICAL DIAGNOSIS: Shortness of breath. Baseline images were carried out after injection of 10.94 mCi of technetium-99m Tetrofosmin. This was followed by 0.4 mg regadenoson and 31.6 mCi of technetium-99m Tetrofosmin for stress imaging. The electrocardiogram showed sinus rhythm at baseline and did not change significantly with the regadenoson infusion. The patient tolerated the procedure well. Review of images at rest and following stress does not indicate any significant perfusion defects consistent with significant myocardial ischemia or infarction. Gated images show normal global left ventricular systolic function with normal regional wall motion. Left ventricular ejection fraction is calculated to be 70%. Left ventricular end diastolic volume is 61 mL. TID is absent (1.08). CONCLUSIONS: 1. No evidence of any significant myocardial ischemia or infarction on this study. 2. Normal regional wall motion. 3. Normal global left ventricular systolic function with a calculated ejection fraction of 70%. 4. Normal left ventricular cavity size. Job ID: [id number] DocumentID: [id number] Dictated Date: 12/10/2017 18:15:50 [employer] Date: 12/10/2017 20:36:23 Dictated By: TISH BARLOW MD, MA, FACP, FACC,
== END ==
LOC: CARD 07:14
PROVIDERS: ATTEND Internal Medicine Cardiovascular Disease
DX: I10 Essential (primary) hypertension (principal); E78.49 Other hyperlipidemia; R06.02 Shortness of breath
CPT/HCPCS: 36415; 78452; 80053; 80061; 83735; 83880; 84443; 85025; 85652; 93017

== ENCOUNTER → 2018-01-21 | Outpatient (CLI) | payer MEDICARE, OTHER ==
[~2018-01-21] MED LIST changes: -CATHETER FLUSH 10 ML SYR IV PRN; -REGADENOSON 0.4 MG/5 ML SYR (LEXISCAN) IV ONE
== END ==
LOC: RAD 11:13
PROVIDERS: ATTEND Internal Medicine Cardiovascular Disease
DX: I70.213 Atherosclerosis of native arteries of extremities with intermittent claudication, bilateral legs (principal); I10 Essential (primary) hypertension
CPT/HCPCS: 93923

== ENCOUNTER 2018-02-21 19:45 | Outpatient (CLI) | payer MEDICARE, OTHER | END 2018-02-22 06:15 | disposition home or self-care (01) | LOC: SLEEP 19:45 | PROVIDERS: ATTEND Nurse Practitioner Family | DX: G47.33 Obstructive sleep apnea (adult) (pediatric) (principal); G47.34 Idiopathic sleep related nonobstructive alveolar hypoventilation; R06.09 Other forms of dyspnea; R06.02 Shortness of breath; J98.4 Other disorders of lung; G47.10 Hypersomnia, unspecified | CPT/HCPCS: 95810 ==

== ENCOUNTER → 2018-03-28 | Outpatient (CLI) | payer MEDICARE, OTHER ==
[~2018-03-28] MED LIST changes: +RECEIVED CONTRAST (Hold Metformin) IV SCH
[2018-03-28 11:45] LABS: BUN/CREATININE RATIO 18; CREATININE SERUM 1.15 MG/DL (0.60-1.30); GFR ESTIMATED > 60
[2018-03-28] MEDS: IOHEXOL 350 MG/ML 100 ML (OMNIPAQUE 350) VIAL IV ONE (11:58)
[2018-03-28] MEDS: NS 100 ML (IVPB) BAG IV ONE (11:58)
--- NOTE | 2018-03-28 12:54 | Diagnostic Imaging Report ---
PROCEDURE: CT chest with contrast only. TECHNIQUE: Multiple contiguous axial images were obtained through the chest after administration of intravenous contrast. INDICATION: Shortness of air and weakness. COMPARISON: Correlation is made with prior CT chest from 11/06/2017. FINDINGS: No axillary lymphadenopathy is detected. No definite hilar or mediastinal lymphadenopathy is identified. Ascending thoracic aorta is stable at approximately 3.9 cm. No dissection is identified. No pericardial or pleural fluid is identified. Central airways appear patent. No infiltrate is identified. Tiny nodule posterior right lower lobe is seen measuring 4 mm. This is stable. No other nodules are seen. There is no mass. There is some chronic scarring in the lingula. The upper abdomen is unremarkable. IMPRESSION: Stable CT chest when compared to exam from 11/06/2017. No acute abnormality is detected. Dictated by: Dictated on workstation # [id number]
== END ==
LOC: RAD 11:22
PROVIDERS: ATTEND Nurse Practitioner Family
DX: J98.4 Other disorders of lung (principal); G47.34 Idiopathic sleep related nonobstructive alveolar hypoventilation; G47.33 Obstructive sleep apnea (adult) (pediatric); G47.10 Hypersomnia, unspecified
CPT/HCPCS: 36415; 71260; 82565; 84520

== ENCOUNTER 2018-04-02 20:57 | Outpatient (CLI) | payer MEDICARE, OTHER ==
[~2018-04-02 20:57] MED LIST changes: -RECEIVED CONTRAST (Hold Metformin) IV SCH
== END 2018-04-03 06:58 | disposition home or self-care (01) ==
LOC: SLEEP 20:57
PROVIDERS: ATTEND Nurse Practitioner Family
DX: G47.33 Obstructive sleep apnea (adult) (pediatric) (principal); J98.4 Other disorders of lung; R06.02 Shortness of breath; R06.09 Other forms of dyspnea
CPT/HCPCS: 95810

== ENCOUNTER → 2019-04-17 | Outpatient (CLI) | payer MEDICARE, OTHER ==
[~2019-04-17] MED LIST changes: +MECL-172 PO; -MECL12.579 PO; -RIVA20TA PO; +RIVA20TA2 PO
--- NOTE | 2019-04-17 08:30 | Diagnostic Imaging Report ---
EXAMINATION: CT Chest without contrast. TECHNIQUE: Multiple contiguous axial images were obtained through the chest without the use of intravenous contrast. All CT scans use one or more of the following dose optimizing techniques: automated exposure control, MA and/or KvP adjustment based on a patient size and exam type, or iterative reconstruction. HISTORY: Shortness of breath COMPARISON: 03/28/2018 FINDINGS: There is no edema or pneumonia. No pleural effusion. No pneumothorax. There is an unchanged 4 mm right lower lobe nodule. Heart size is normal. There are mild coronary artery calcifications. No pericardial effusion. Aorta is normal in caliber. There is no axillary or supraclavicular lymphadenopathy. There is no mediastinal lymphadenopathy. Limited views of the upper abdomen are unremarkable. There are no suspicious osseus lesions. Old right-sided rib fractures are seen. IMPRESSION: 1. No acute abnormality in the chest. Stable tiny pulmonary nodule in the right lower lobe for which no followup is required. Dictated by: Dictated on workstation # [id number]
== END ==
LOC: RAD 07:52
PROVIDERS: ATTEND Nurse Practitioner Family
DX: J98.4 Other disorders of lung (principal); G47.33 Obstructive sleep apnea (adult) (pediatric); G47.36 Sleep related hypoventilation in conditions classified elsewhere; G47.10 Hypersomnia, unspecified
CPT/HCPCS: 71250

== ENCOUNTER → 2019-07-28 | Outpatient (CLI) | payer MEDICARE, OTHER ==
[~2019-07-28] MED LIST changes: +RT-ALBUTEROL SULF 2.5 MG/3 ML PRE-MIX VIAL INH ONE
== END ==
LOC: RT 15:36
PROVIDERS: ATTEND Nurse Practitioner Family
DX: J98.4 Other disorders of lung (principal); G47.36 Sleep related hypoventilation in conditions classified elsewhere; R06.00 Dyspnea, unspecified
CPT/HCPCS: 94060; 94726; 94729

== ENCOUNTER → 2019-07-29 | Outpatient (CLI) | payer MEDICARE, OTHER ==
[~2019-07-29] MED LIST changes: -RT-ALBUTEROL SULF 2.5 MG/3 ML PRE-MIX VIAL INH ONE
--- NOTE | 2019-07-29 15:47 | Diagnostic Imaging Report ---
INDICATION: Left inner thigh pain. FINDINGS: Sonographic interrogation of the area of pain in the upper inner left thigh was performed. No sonographic abnormality is detected. No solid or cystic mass is detected. IMPRESSION: No sonographic abnormality is detected. Dictated by: Dictated on workstation # [id number]
== END ==
LOC: RAD 12:51
PROVIDERS: ATTEND Nurse Practitioner Community Health
DX: M79.652 Pain in left thigh (principal)
CPT/HCPCS: 76881

== ENCOUNTER 2019-12-21 05:44 | Outpatient (RCR) | payer MEDICARE, OTHER ==
[~2019-12-21] VITALS: Ht 182.9 cm; Wt 87.3 kg
[~2019-12-21 05:44] MED LIST changes: +FENO160T12 PO; +MULT-1136 PO
== END 2019-12-21 09:44 | disposition home or self-care (01) ==
LOC: PREOP 05:44
PROVIDERS: ATTEND Surgery
DX: Z01.812 Encounter for preprocedural laboratory examination (principal); K21.9 Gastro-esophageal reflux disease without esophagitis; K92.0 Hematemesis; K92.1 Melena; R63.4 Abnormal weight loss; Z20.828 Contact with and (suspected) exposure to other viral communicable diseases
CPT/HCPCS: 87635

== ENCOUNTER 2019-12-24 11:48 | Day surgery (SDC) | payer MEDICARE, OTHER ==
[~2019-12-24] VITALS: Ht 182 cm; Wt 87.0 kg
[2019-12-24] MEDS ORDERED: LACTATED RINGERS 1,000 ML IV STA (11:49)
[2019-12-24] MEDS ORDERED: HURRICAINE EXT TUBE (BENZOCAINE) XX PRN (12:00)
[2019-12-24] MEDS ORDERED: LACTATED RINGERS 1,000 ML IV ONE (12:02)
[2019-12-24 12:29] VITALS: BP 118/66
[2019-12-24] MEDS ORDERED: PROPOFOL INJECTION 50 ML IV ONE (12:35)
[2019-12-24] MEDS ORDERED: MIDAZOLAM 2 MG/2 ML (VERSED) VIAL ONE (12:36)
[2019-12-24 13:20] VITALS: BP 120/85
[2019-12-24 13:25] VITALS: BP 120/85
--- NOTE | 2019-12-24 13:26 | Progress Note-Post Operative ---
Post-Operative Progess Note Surgeon (s)/Single Spindle Screw Machine Operator (s) Surgeon ROSAURA RINCON DO Single Spindle Screw Machine Operator: na Pre-Operative Diagnosis gerd, weight loss, melena Post-Operative Diagnosis normal egd and colonoscopy Procedure & Operative Findings Date of Procedure 12/24/19 Procedure Performed/Findings egd c biopsies, colonoscopy Anesthesia Type per systems test engineer Estimated Blood Loss Estimated blood loss (mL): na Specimens/Packing Specimens Removed antrum ,ge ROSAURA RINCON DO Dec 24, 2019 13:26
--- NOTE | 2019-12-24 13:28 | Discharge Inst-Simple/Standard ---
Discharge Inst-Standard Patient Instructions/Follow Up Plan of Care/Instructions/FU: 2 weeks Melecio Activity as Tolerated: Yes Discharge Diet: Regular Diet ROSAURA RINCON DO Dec 24, 2019 13:28
[2019-12-24 13:30] VITALS: BP 126/78
[2019-12-24 13:35] VITALS: BP 126/78
[2019-12-24 13:53] VITALS: BP 126/70
--- NOTE | 2019-12-24 22:59 | OPERATIVE REPORT ---
DATE OF SERVICE: 12/24/2019 PREOPERATIVE DIAGNOSES: Gastroesophageal reflux disease, weight loss and melena. POSTOPERATIVE DIAGNOSIS: Normal EGD and colon. PROCEDURE: EGD with biopsies, colonoscopy. SURGEON: Rosaura Majano DO ANESTHESIA: Per REPAIRER SWITCHGEAR. ESTIMATED BLOOD LOSS: None. COMPLICATIONS: None. INDICATIONS: The patient is a 74-year-old male with GERD symptoms, weight loss and melena. He understands risks and benefits of procedure and wished to proceed with procedure. Consent was signed in the chart. DESCRIPTION OF PROCEDURE: The patient was taken to the endoscopy suite, placed in left lateral recumbent position. Timeout was performed. Scope was inserted down the mouth, esophagus, stomach and into the duodenum without difficulty. No polyps, masses or ulcerations within the duodenum. Scope was slowly retracted back into the stomach where it was further insufflated. No polyps, masses or ulcerations. Biopsy of the antrum was obtained. Scope was retroflexed noting no other pathology. Scope was returned to its normal position, slowly withdrawn to distal esophagus. No polyps, masses or ulcerations. Biopsy of the GE junction was obtained. Scope was then slowly retracted back until completely removed noting no other pathology. Digital rectal exam was performed. There were no palpable polyps, masses or ulcerations. Scope was inserted in the rectum and advanced all the way to cecum with minimal difficulty. Prep was adequate. Scope was then slowly retracted back. No polyps, masses or ulcerations within the cecum, ascending, transverse, descending and sigmoid colon. Once in the rectum, scope was retroflexed noting no other pathology. Scope was returned to its normal position, slowly withdrawn until completely removed. The patient tolerated procedure well without any complications. He was taken to recovery room in stable condition. RECOMMENDATIONS: The patient will follow up on biopsies in two weeks. Further recommendations pending those results. Continue on current medications. Job ID: [id number] DocumentID: [id number] Dictated Date: 12/24/2019 13:31:36 Greens Keeper Date: 12/24/2019 22:58:47 Dictated By: ROSAURA MAJANO DO
== END 2019-12-24 14:00 | disposition home or self-care (01) ==
LOC: ENDO 11:48
PROVIDERS: ATTEND Surgery
DX: K21.00 Gastro-esophageal reflux disease with esophagitis, without bleeding (principal); K92.1 Melena; I10 Essential (primary) hypertension; K21.9 Gastro-esophageal reflux disease without esophagitis; I73.9 Peripheral vascular disease, unspecified; M06.9 Rheumatoid arthritis, unspecified; G62.9 Polyneuropathy, unspecified; Z79.899 Other long term (current) drug therapy; Z88.0 Allergy status to penicillin; Z88.2 Allergy status to sulfonamides; Z88.1 Allergy status to other antibiotic agents; Z80.42 Family history of malignant neoplasm of prostate; Z83.3 Family history of diabetes mellitus
CPT/HCPCS: 88305

== ENCOUNTER → 2020-01-12 | Outpatient (CLI) | payer MEDICARE, OTHER ==
[~2020-01-12] MED LIST changes: -MECL-172 PO; +MECL-173 PO
--- NOTE | 2020-01-12 09:46 | Diagnostic Imaging Report ---
PROCEDURE: US Gallbladder. TECHNIQUE: Multiple real-time grayscale images were obtained over the right upper quadrant in various projections. INDICATION: Abdominal pain. FINDINGS: Liver is normal size at 15.6 cm. No discrete liver mass is identified. The portal vein is patent and shows normal direction of flow. Gallbladder is without stones or sludge. No wall thickening or pericholecystic fluid is identified. Extra hepatic bile duct is obscured by bowel gas. The pancreas and aorta are obscured as well. IVC is patent. The right kidney is without calculi or hydronephrosis. There is no ascites. IMPRESSION: No evidence of cholelithiasis or acute cholecystitis. Dictated by: Dictated on workstation # [id number]
== END ==
LOC: RAD 08:30
PROVIDERS: ATTEND Surgery
DX: K21.9 Gastro-esophageal reflux disease without esophagitis (principal); R10.9 Unspecified abdominal pain
CPT/HCPCS: 76705

== ENCOUNTER → 2020-01-18 | Outpatient (CLI) | payer MEDICARE, OTHER ==
[~2020-01-18] MED LIST changes: +CATHETER FLUSH 10 ML SYR IV PRN
--- NOTE | 2020-01-18 15:50 | Diagnostic Imaging Report ---
INDICATION: Gastroesophageal reflux. TECHNIQUE: The patient was administered 5.4 mCi of technetium 99m Choletec intravenously and imaging over the abdomen was performed. At 1 hour, the patient ingested 8 ounces of Ensure and a gallbladder ejection fraction was calculated. FINDINGS: Homogeneous uptake of activity by the liver is noted. There is prompt excretion of activity into the gallbladder and common duct with normal passage of activity into the small bowel. The gallbladder ejection fraction is slightly low at 29%. Normal values are 35% or greater. IMPRESSION: 1. Patent cystic duct and common bile duct. 2. Slightly low gallbladder ejection fraction of 29%. Dictated by: Dictated on workstation # [id number]
== END ==
LOC: CARD 12:45
PROVIDERS: ATTEND Surgery
DX: K21.9 Gastro-esophageal reflux disease without esophagitis (principal); K82.8 Other specified diseases of gallbladder
CPT/HCPCS: 78227; A9537

== ENCOUNTER 2020-01-26 05:35 | Outpatient (RCR) | payer MEDICARE, OTHER ==
[~2020-01-26] VITALS: Ht 182.9 cm; Wt 84.1 kg
[~2020-01-26 05:35] MED LIST changes: -CATHETER FLUSH 10 ML SYR IV PRN
== END 2020-01-26 10:56 | disposition home or self-care (01) ==
LOC: PREOP 05:35
PROVIDERS: ATTEND Surgery
DX: Z01.812 Encounter for preprocedural laboratory examination (principal); K82.8 Other specified diseases of gallbladder; R10.13 Epigastric pain; Z20.828 Contact with and (suspected) exposure to other viral communicable diseases
CPT/HCPCS: 87635

== ENCOUNTER 2020-01-28 08:34 | Day surgery (SDC) | payer MEDICARE, OTHER ==
[~2020-01-28] VITALS: Ht 182.9 cm; Wt 84.1 kg
[2020-01-28] VITALS (12 sets, daily range): BP systolic 109–159; BP diastolic 62–96
[2020-01-28] MEDS ORDERED: ceFAZolin 2 GM IV Premixed 50 ML IV ONE (09:00)
[2020-01-28] MEDS ORDERED: LACTATED RINGERS 1,000 ML IV PRN (09:00)
[2020-01-28 09:14] LABS: BASOPHILS # (AUTO) 0.1 10^3/uL (0.0-0.1); BASOPHILS % (AUTO) 1 % (0-10); EOSINOPHILS # (AUTO) 0.3 10^3/uL (0.0-0.3); EOSINOPHILS % (AUTO) 4 % (0-10); HEMATOCRIT 43 % (40-54); HEMOGLOBIN 14.2 g/dL (13.3-17.7); LYMPHOCYTES # (AUTO) 1.8 10^3/uL (1.0-4.0); LYMPHOCYTES % (AUTO) 26 % (12-44); MEAN CORPUSCULAR HEMOGLOBIN 31 pg (25-34); MEAN CORPUSCULAR HGB CONC 33 g/dL (32-36); MEAN CORPUSCULAR VOLUME 93 fL (80-99); MONOCYTES # (AUTO) 0.6 10^3/uL (0.0-1.0); MONOCYTES % (AUTO) 8 % (0-12); NEUTROPHILS # (AUTO) 4.2 10^3/uL (1.8-7.8); NEUTROPHILS % (AUTO) 61 % (42-75); PLATELET COUNT 278 10^3/uL (130-400); WHITE BLOOD COUNT 6.9 10^3/uL (4.3-11.0)
--- NOTE | 2020-01-28 09:17 | Progress Note-Pre Operative ---
Pre-Operative Progress Note H&P Reviewed The H&P was reviewed, patient examined and no changes noted. Date Seen by Provider: Jan 28, 2020 Time Seen by Provider: :17 Date H&P Reviewed: Jan 28, 2020 Time H&P Reviewed: : Pre-Operative Diagnosis: epigastric abd pain, biliary dyskinesia ROSAURA RINCON DO Jan 28, 2020 09:17
[2020-01-28] MEDS ORDERED: LIDOCAINE/EPI 1%-1:100,000 (XYLOCAINE) 20ML ONE (09:25)
[2020-01-28] MEDS ORDERED: IOPAMIDOL 61% 30 ML (ISOVUE 300) VIAL ONE (09:25)
[2020-01-28] MEDS ORDERED: ONDANSETRON 4 MG/2 ML (SDV) Z0FRAN ONE (09:38)
[2020-01-28] MEDS ORDERED: LIDOCAINE PF 2% 5 ML (XYLOCAINE) VIAL ONE (09:38)
[2020-01-28] MEDS ORDERED: ROCURONIUM 10 MG/ML 5 ML SYRINGE IV ONE (09:38)
[2020-01-28] MEDS ORDERED: NEOSTIGMINE 3 MG/3 ML VIAL ONE (09:38)
[2020-01-28] MEDS ORDERED: SEVOFLURANE (ULTANE) 15 ML INHAL SOLN ONE ×2 (09:38→11:03)
[2020-01-28] MEDS ORDERED: proPOfol 200 MG/20 ML (DIPRIVAN) VIAL IV ONE (09:38)
[2020-01-28] MEDS ORDERED: GLYCOPYRROLATE 0.2 MG/ML (ROBINUL) 2 ML VIAL ONE (09:38)
[2020-01-28] MEDS ORDERED: fentaNYL INJECTION 100 MCG/2 ML AMP ONE (09:39)
[2020-01-28] MEDS ORDERED: HYDROmorphone 2 MG/ML VIAL (DILAUDID) ONE ×2 (10:45→11:10)
--- NOTE | 2020-01-28 10:46 | Progress Note-Post Operative ---
Post-Operative Progess Note Surgeon (s)/Air Transport Professionals (s) Surgeon ROSAURA RINCON DO [employer]essionals: Dr. Moran to assist in retraction dissection and closure. Pre-Operative Diagnosis epigastric abd pain, biliary dyskinesia Post-Operative Diagnosis same Procedure & Operative Findings Date of Procedure 01/28/20 Procedure Performed/Findings PROCEDURE: Laparoscopic cholecystectomy with attempted intraoperative cholangiogram. COMPLICATIONS: None. PROCEDURE: The patient was taken to the operating suite and was prepped and draped in sterile fashion. A surgical pause was performed. Just superior to the umbilicus, a 12 mm incision was made. Dissection was taken down to the fascia, which was then scored and grasped with a Vickie and the abdomen was then entered. A 0 Vicryl suture was placed in a oieluc-ya-uhslv fashion and a Cui trocar was placed and secured. Pneumoperitoneum was achieved. A 5mm trochar place in the subxyphoid and 2 in the right upper quadrant. The gallbladder was then grasped and elevated. Adhesions to the gallbladder were taken down. The cystic duct, and cystic artery were then dissected out. Clip was placed on the distal portion of the cystic duct which was then partially transected. An arrow catheter was attempted to be inserted into the duct. It had a diameter to small to be inserted. The cholangiogram was attempted, not performed. Clips were placed on proximal portion of the cystic duct and then the duct was then transected. Clips were placed along the proximal and distal portion of the cystic artery which was then transected. Hook cautery was used to dissect the gallbladder from the gallbladder fossa achieving hemostasis. The gallbladder was placed in an Endobag and removed through the 12 mm trocar site. The abdomen was then reinspected. Copious amounts of irrigation were used to irrigate the abdomen and there were no signs of active bleeding. Hemostasis had been achieved. The 12 mm fascial defect was then closed with 0 Vicryl suture that had been placed in a sykxcl-qj-ofyht fashion. The abdomen was then desufflated, the trocars were removed. The abdomen was then washed and dried. The skin was then closed using 4-0 Monocryl in a subcuticular fashion. The abdomen was washed and dried and Skin Affix was place over incisions. Patient tolerated the procedure well without any complications and was taken to the recovery room in stable condition. Anesthesia Type general Estimated Blood Loss Estimated blood loss (mL): minimal Specimens/Packing Specimens Removed gallbladder ROSAURA RINCON DO Jan 28, 2020 10:46
--- NOTE | 2020-01-28 10:48 | Discharge Inst-Simple/Standard ---
Discharge Inst-Standard Discharge Medications New, Converted or Re-Newed RX: RX on Chart Patient Instructions/Follow Up Plan of Care/Instructions/FU: 2-3 weeks jessee Restart the Xarelto in 3 days. Activity as Tolerated: No Discharge Diet: Regular Diet Other Inst to Patient Follow up Appt: Make appointment for 2-3 weeks. Instructions: No lifting greater than 10 pounds. No strenuous activity. May shower in 24 hours, no tub bath or soaking. Use incentive spirometer at home as directed. No Smoking Skin/Wound Care: You have special glue over incision, it will fall off on it's own. Symptoms to Report: Appetite Changes, Extremity Discoloration, Numbness/Tingling, Swelling Increased, Bleeding Excessive, Eyesight Changes, Pain Increased, Urine Color Change, Constipation(Persistent), Fever over 101 degree F, Pain/Pressure in chest, Urinating Difficulty, Cough Up/Vomit Blood, Heart Beat Irreg/Pounding, Pain/Pressure in jaw, Vaginal Bleeding Increase, Cramps in feet or legs, Lightheadedness, Pain/Pressure in shoulder, Diarrhea(Persistent), Memory Changes Suddenly, Questions/Concerns, Weight gain consecutive days, Dizziness/Fainting, Nausea/Vomiting, Shortness of Breath, Weight gain over 2 pounds. If eyes or skin turn yellow notify physician. If questions or concerns contact your physician Or seek help at emergency department. ROSAURA RINCON DO Jan 28, 2020 10:48
[2020-01-28] MEDS ORDERED: DOCU-143 PO (10:49)
[2020-01-28] MEDS ORDERED: HYDR-4226 PO (10:49)
[2020-01-28] MEDS ORDERED: morphine INJ 10 MG/ML 1ML (SYR OR VIAL) IVP ONE (11:15)
[2020-01-28] MEDS ORDERED: ONDANSETRON 4 MG/2 ML (SDV) Z0FRAN IVP PRN (11:15)
[2020-01-28] MEDS ORDERED: HYDROmorphone 2 MG/ML VIAL (DILAUDID) IV ONE (11:15)
--- NOTE | 2020-01-29 08:09 | Anesthesia-General Post-Op ---
General Patient Condition Mental Status/LOC: Same as Preop Cardiovascular: Satisfactory Nausea/Vomiting: Absent Respiratory: Satisfactory Pain: Controlled Complications: Absent Post Op Complications Complications None Follow Up Care/Instructions Patient Instructions None needed. Anesthesia/Patient Condition Patient Condition Patient was seen yesterday after the procedure and he was doing well, did C/O abd pain which is to be expected, stable vital signs, no apparent adverse anesthesia problems. KARLA JOHNSON DO Jan 29, 2020 08:09
== END 2020-01-28 13:43 | disposition home or self-care (01) ==
LOC: SDC 08:34
PROVIDERS: ATTEND Surgery
DX: K81.1 Chronic cholecystitis (principal); K82.8 Other specified diseases of gallbladder; I10 Essential (primary) hypertension; G43.909 Migraine, unspecified, not intractable, without status migrainosus; M19.90 Unspecified osteoarthritis, unspecified site; K21.9 Gastro-esophageal reflux disease without esophagitis; G62.9 Polyneuropathy, unspecified; E78.00 Pure hypercholesterolemia, unspecified; E78.5 Hyperlipidemia, unspecified; G47.10 Hypersomnia, unspecified; G47.33 Obstructive sleep apnea (adult) (pediatric); I25.10 Atherosclerotic heart disease of native coronary artery without angina pectoris; I73.9 Peripheral vascular disease, unspecified; Z79.899 Other long term (current) drug therapy; Z88.0 Allergy status to penicillin; Z88.1 Allergy status to other antibiotic agents; Z88.2 Allergy status to sulfonamides; Z83.3 Family history of diabetes mellitus
CPT/HCPCS: 36415; 85025; 87081; 88304

== ENCOUNTER → 2020-08-02 | Outpatient (CLI) | payer MEDICARE, OTHER ==
[~2020-08-02] MED LIST changes: +DOCU-143 PO; -MECL-173 PO; +MECL-215 PO
[2020-08-02 12:22] LABS: HEMATOCRIT 41 % (40-54); HEMOGLOBIN 13.9 g/dL (13.3-17.7); MEAN CORPUSCULAR HEMOGLOBIN 32 pg (25-34); MEAN CORPUSCULAR HGB CONC 34 g/dL (32-36); MEAN CORPUSCULAR VOLUME 93 fL (80-99); MEAN PLATELET VOLUME 8.7 fL (9.0-12.2); PLATELET COUNT 232 10^3/uL (130-400); WHITE BLOOD COUNT 7.8 10^3/uL (4.3-11.0)
[2020-08-02 12:29] LABS: ALBUMIN 4.1 GM/DL (3.2-4.5)
[2020-08-02 12:31] LABS: TOTAL PROTEIN 6.8 GM/DL (6.4-8.2)
[2020-08-02 12:33] LABS: BILIRUBIN,TOTAL 0.4 MG/DL (0.1-1.0)
[2020-08-02 12:34] LABS: ALKALINE PHOSPHATASE 50 U/L (40-136)
[2020-08-02 12:35] LABS: CREATININE SERUM 0.91 MG/DL (0.60-1.30); GFR ESTIMATED > 60
[2020-08-02 12:36] LABS: BUN/CREATININE RATIO 18
[2020-08-02 12:37] LABS: BILIRUBIN,DIRECT 0.2 MG/DL (0.0-0.3); BILIRUBIN,INDIRECT 0.2 MG/DL
[2020-08-02 12:38] LABS: ALANINE AMINOTRANSFERASE 17 U/L (0-55)
== END ==
LOC: LAB 11:51
PROVIDERS: ATTEND Nurse Practitioner Family
DX: Z86.718 Personal history of other venous thrombosis and embolism (principal)
CPT/HCPCS: 36415; 80076; 82565; 84520; 85027

== ENCOUNTER → 2020-08-03 | Outpatient (CLI) | payer MEDICARE, OTHER ==
[~2020-08-03] MED LIST changes: +HOLD METFORMIN - RECEIVED CONTRAST 20 ML VIAL IV SCH; +IOHEXOL 350 MG/ML 100 ML (OMNIPAQUE 350) VIAL IV ONE; +NS 100 ML (IVPB) BAG IV ONE
--- NOTE | 2020-08-03 18:20 | Diagnostic Imaging Report ---
PROCEDURE: CT cervical spine without contrast. TECHNIQUE: Multiple contiguous axial images were obtained through the cervical spine without the use of intravenous contrast. Sagittal and coronal reformations were then performed. Auto Exposure Controls were utilized during the CT exam to meet ALARA standards for radiation dose reduction. INDICATION: Chronic neck pain and headache. COMPARISON: CTA head and neck performed concurrently. FINDINGS: Normal alignment of the cervical spine. No spondylolisthesis. No fracture is present. Minimal degenerative disc disease present. There are no sites of spinal canal narrowing. No high-grade neural foraminal narrowing. No cervical lymphadenopathy. Lung apices are clear. IMPRESSION: 1. No fracture within the cervical spine. 2. Mild degenerative disc disease and facet osteoarthritis. However, there are no sites of high-grade spinal canal or neuroforaminal narrowing. Dictated by: Dictated on workstation # [id number]
--- NOTE | 2020-08-03 18:38 | Diagnostic Imaging Report ---
PROCEDURE: CT angiography of the head and CT angiography of the neck with and without contrast. TECHNIQUE: Contiguous noncontrast images were obtained from the skull base through the vertex. After intravenous contrast administration, helical CT angiography of the neck was performed. Source data was reformatted into 3D MIP projections. Delayed post contrast acquisition was also obtained. Auto Exposure Controls were utilized during the CT exam to meet ALARA standards for radiation dose reduction. INDICATION: Headache and dizziness. COMPARISON: None available. FINDINGS: Noncontrast head shows no intracranial hyperdense hemorrhage or space-occupying mass. No hydrocephalus or midline shift. Monk-white matter differentiation is well-preserved. Basilar cisterns are preserved. CTA images of the neck shows normal aortic arch without dissection. The great vessels of the arch are widely patent. The bilateral common carotid arteries are normal. There is no stenosis of the proximal internal carotid arteries per NASCET criteria. The cervical divisions of the internal carotid arteries are widely patent. The external carotid arteries are patent centrally. The bilateral vertebral arteries are codominant and origins are patent. No stenosis or occlusion of the vertebral arteries. No cervical lymphadenopathy. Airway is patent and lung apices are clear. Thyroid is unremarkable. CT imaging of the head shows patency of the bilateral distal internal carotid arteries without saccular aneurysm. The M1 and M2 divisions of the middle cerebral arteries are normal. The anterior cerebral arteries are patent. No anterior communicating artery aneurysm. Basilar artery is widely patent without terminal aneurysm. The posterior cerebral arteries are patent with conventional origin of the left PROJECTION CAMERA OPERATOR and a origin of the right PROJECTION CAMERA OPERATOR. No posterior communicating artery aneurysm. Dural venous sinuses are patent. IMPRESSION: 1. No intracranial hemorrhage or space-occupying mass. 2. No arterial stenosis or occlusion within the major neck arteries. 3. No intracranial large vessel occlusion or saccular aneurysm. 4. Patent dural venous sinuses. Dictated by: Dictated on workstation # [id number]
== END ==
LOC: RAD 15:15
PROVIDERS: ATTEND Nurse Practitioner Family
DX: I25.10 Atherosclerotic heart disease of native coronary artery without angina pectoris (principal); M47.812 Spondylosis without myelopathy or radiculopathy, cervical region; M50.30 Other cervical disc degeneration, unspecified cervical region; R42 Dizziness and giddiness; R51.9 Headache, unspecified
CPT/HCPCS: 70496; 70498; 72125

== ENCOUNTER → 2021-08-04 | Outpatient (CLI) | payer MEDICARE ==
[~2021-08-04] MED LIST changes: -HOLD METFORMIN - RECEIVED CONTRAST 20 ML VIAL IV SCH; -IOHEXOL 350 MG/ML 100 ML (OMNIPAQUE 350) VIAL IV ONE; -NS 100 ML (IVPB) BAG IV ONE
== END ==
LOC: CARD 13:38
PROVIDERS: ATTEND Internal Medicine Cardiovascular Disease
DX: R06.09 Other forms of dyspnea (principal)
CPT/HCPCS: 93306

== ENCOUNTER → 2021-08-18 | Outpatient (CLI) | payer MEDICARE, OTHER ==
[~2021-08-18] MED LIST changes: +REGADENOSON 0.4 MG/5 ML SYR (LEXISCAN) IV ONE
[2021-08-18] MEDS: CATHETER FLUSH 10 ML SYR IVP PRN ×2 (07:36→09:22)
[2021-08-18 09:20] VITALS: BP 129/87
--- NOTE | 2021-08-18 16:14 | STRESS TEST ---
DATE OF SERVICE: 08/18/2021 RESTING AND POST REGADENOSON TECHNETIUM-99M TETROFOSMIN SPECT CT IMAGING ORDERING PHYSICIAN: Dr. Tapia. PRIMARY PHYSICIAN: [facility]. CLINICAL DIAGNOSIS: Chest discomfort. Baseline images were carried out after injection of 10.6 mCi of technetium-99m Tetrofosmin. This was followed by 0.4 mg Regadenoson and 28.7 mCi of technetium-99m Tetrofosmin for stress imaging. The electrocardiogram showed sinus rhythm at baseline. It did not change significantly with the regadenoson infusion. Review of images at rest and following stress does not indicate any evidence of significant myocardial ischemia or infarction. Gated images show normal global left ventricular systolic function with normal regional wall motion. Left ventricular ejection fraction is calculated to be 69%. Left ventricular end-diastolic volume is 77 mL. TID is absent (0.98). CONCLUSIONS: 1. No evidence of any significant myocardial ischemia or infarction on this study. 2. Normal regional wall motion. 3. Normal global left ventricular systolic function with a calculated ejection fraction of 69%. Job ID: [id number] DocumentID: [id number] Dictated Date: 08/18/2021 12:49:34 Telecom Billing Analyst Date: 08/18/2021 16:14:01 Dictated By: TISH TAPIA MD, MA, FACP, FACC,
== END ==
LOC: CARD 08:00
PROVIDERS: ATTEND Internal Medicine Cardiovascular Disease
DX: R07.89 Other chest pain (principal)
CPT/HCPCS: 78452; 93017; A9502

== ENCOUNTER → 2022-02-22 | Outpatient (CLI) | payer MEDICARE, OTHER ==
[~2022-02-22] VITALS: Ht 182.9 cm; Wt 85.5 kg
[~2022-02-22] MED LIST changes: +CETI10TA17 PO; +LISI1TAB48 PO; +MELO15TA39 PO; +PANT20TA18 PO; -REGADENOSON 0.4 MG/5 ML SYR (LEXISCAN) IV ONE; +RIVA10T PO; +SUCR1TAB PO
[2022-02-22 13:46] LABS: BASOPHILS # (AUTO) 0.1 10^3/uL (0.0-0.1); BASOPHILS % (AUTO) 1 % (0-10); EOSINOPHILS # (AUTO) 0.2 10^3/uL (0.0-0.3); EOSINOPHILS % (AUTO) 2 % (0-10); HEMATOCRIT 39 % (40-54); HEMOGLOBIN 13.4 g/dL (13.3-17.7); LYMPHOCYTES # (AUTO) 1.5 10^3/uL (1.0-4.0); LYMPHOCYTES % (AUTO) 24 % (12-44); MEAN CORPUSCULAR HEMOGLOBIN 32 pg (25-34); MEAN CORPUSCULAR HGB CONC 34 g/dL (32-36); MEAN CORPUSCULAR VOLUME 93 fL (80-99); MEAN PLATELET VOLUME 9.3 fL (9.0-12.2); MONOCYTES # (AUTO) 0.4 10^3/uL (0.0-1.0); MONOCYTES % (AUTO) 7 % (0-12); NEUTROPHILS # (AUTO) 4.2 10^3/uL (1.8-7.8); NEUTROPHILS % (AUTO) 65 % (42-75); PLATELET COUNT 233 10^3/uL (130-400); WHITE BLOOD COUNT 6.4 10^3/uL (4.3-11.0)
[2022-02-22 13:49] LABS: BILIRUBIN,URINE NEGATIVE (NEGATIVE); CLARITY,URINE CLEAR; COLOR,URINE YELLOW; GLUCOSE, URINE (UA) NEGATIVE (NEGATIVE); KETONES,URINE NEGATIVE (NEGATIVE); LEUKOCYTE ESTERASE ,URINE NEGATIVE (NEGATIVE); NITRITE,URINE NEGATIVE (NEGATIVE); PROTEIN,URINE NEGATIVE (NEGATIVE)
[2022-02-22 13:56] VITALS: BP 130/80
[2022-02-22 13:56] LABS: ALBUMIN 3.9 GM/DL (3.2-4.5)
[2022-02-22 13:57] LABS: POTASSIUM 4.1 MMOL/L (3.6-5.0); PROTHROMBIN TIME PATIENT 13.5 SEC (12.2-14.7)
[2022-02-22 13:58] LABS: CALCIUM 9.2 MG/DL (8.5-10.1)
[2022-02-22 13:59] LABS: BACTERIA,URINE NEGATIVE /HPF; TOTAL PROTEIN 6.4 GM/DL (6.4-8.2)
[2022-02-22 14:01] LABS: BILIRUBIN,TOTAL 0.5 MG/DL (0.1-1.0)
[2022-02-22 14:03] LABS: CREATININE SERUM 1.03 MG/DL (0.60-1.30)
--- NOTE | 2022-02-22 14:13 | Physical Therapy Pre-Op Eval ---
PT Pre-Surgical Assessment Type of Surgery Type of Surgery: right TKR Prior Level of Function Current Living Status: Spouse Locomotion (Upon Admit): Independent PLOF DME: None Subjective Home: Single Level Current Living Status: Spouse Motor Control Motor Control: Motor Control WNL ROM ROM: WFL, except focal deficit Strength Strength: WFL Transfers Transfers (B, C, W/C) (FIM): 6 (QC) Gait Gait (FIM): 6 (QC) Distance: >200' Gait Assistive Device: None Treatment Rendered Treatment: Patient instructed in assistive device, supported ambulation. Patient instructed in and given written program of ROM and strengthening exercises to be preformed post-op. Patient instructed in movement precautions where applicable. Patient demonstrates understandings of post-operative therapy protocol including gait pattern and exercise program. Pre-operative instruction completed; await physical therapy orders after surgery. Treatment Goal Met: Yes Assessment Goals Acheived: I Ambulation w/ FWW, Understands P-op Precaut, I Post-op Exercises Charges/GCodes Time In: 1330 Time Out: 1340 Total Billed Treatment Time: 10 Total Billed Treatment 1 visit Educ 10 min JHON OLIVER PT Feb 22, 2022 14:13
[2022-02-22 14:37] LABS: ERYTHROCYTE SEDIMENTATION RATE 6 MM/HR (0-30)
--- NOTE | 2022-02-22 16:14 | Diagnostic Imaging Report ---
INDICATION: Preop for total knee replacement. TIME OF EXAM: 2:00 p.m. COMPARISON: Correlation is made with prior chest from 10/16/2017. Heart size is normal. Lungs are clear. No infiltrates are seen. There is no effusion or pneumothorax. Postop changes to the left clavicle with plate and screws is again noted. IMPRESSION: No acute cardiopulmonary process is detected. Dictated by: Dictated on workstation # [id number]
== END ==
LOC: PREOP 02-21 08:23
PROVIDERS: ATTEND Orthopaedic Surgery
DX: Z01.811 Encounter for preprocedural respiratory examination (principal)
CPT/HCPCS: 36415; 71046; 80053; 81000; 82308; 85025; 85610; 85652; 86850; 86900; 86901; 87081; 93005

== ENCOUNTER 2022-02-28 07:53 | Inpatient (IN) | payer MEDICARE, OTHER ==
--- NOTE | 2022-02-21 07:05 | HISTORY AND PHYSICAL ---
DATE OF ADMISSION: 02/28/2022. This is for inpatient admission on 02/28/2022. Patient will require regular inpatient admission due to comorbidities, need for pain management and need for physical therapy. HISTORY: The patient is a 76-year-old gentleman with complaints of chronic right knee pain, which has been progressively worsening to the point where it is affecting his activities of daily living. He has undergone treatment in the past with injections, which provided only temporary relief of his symptoms. Due to progressive symptoms and failure to improve with conservative measures, the patient elected to proceed with surgical intervention. Radiographs reveal severe medial and patellofemoral joint space narrowing. REVIEW OF SYSTEMS: No chest pain, no shortness of breath. No dysuria. PAST MEDICAL HISTORY: DVT, hyperlipidemia, hypertension, osteoarthritis, MRSA, ulcers, hepatitis B, reflux, back pain, coronary artery disease, migraines, benign prostatic hypertrophy. PAST SURGERIES: Toe, left leg, left shoulder, herniorrhaphy, wrist, tonsillectomy, left knee, cataract, left total knee replacement, right leg plate, heart catheterization, EGD and colonoscopy. FAMILY HISTORY: Significant for cardiovascular disease, breast cancer, Parkinson's, diabetes. PRIMARY CARE PROVIDER: [facility]. MEDICATIONS: Sucralfate, fenofibrate, cetirizine, meloxicam, rivaroxaban, Protonix. ALLERGIES: CIPRO, BACTRIM, CLINDAMYCIN. SOCIAL HISTORY: Drinks alcohol socially. Denies tobacco use. PHYSICAL EXAM: The patient is well-developed, well-nourished, in no acute distress. HEENT: Normocephalic, atraumatic. Pupils equal, round and reactive to light. Oropharynx is clear. NECK: Supple. No lymphadenopathy. LUNGS: Clear to auscultation bilaterally. HEART: Regular rate and rhythm. ABDOMEN: Soft, nontender, nondistended. EXTREMITIES: The right knee demonstrates varus alignment. He is tender along his medial femoral condyle and some pain medially with Kassidy's. He has patellofemoral crepitus and pain with patellar loading. Range of motion 0/3/120. There is no varus or valgus laxity. Negative anterior and posterior drawer. The patient ambulates with an antalgic gait. IMPRESSION: Severe right knee osteoarthritis, unresponsive to conservative measures. PLAN: Right total knee arthroplasty. The risks, benefits, options, ramifications and recovery have been discussed at length with the patient. He understands and wishes to proceed. Job ID: [id number] DocumentID: [id number] Dictated Date: 02/16/2022 09:49:17 Sound Technician Date: 02/16/2022 12:36:00 Dictated By: CHELITA DAS MD
[2022-02-28] VITALS (12 sets, daily range): BP systolic 128–174; BP diastolic 74–93
[~2022-02-28] VITALS: Ht 182.9 cm; Wt 85.8 kg
[~2022-02-28 07:53] MED LIST changes: +ONDANSETRON 4 MG/2 ML (SDV) Z0FRAN IVP PRN; +diphenhydrAMINE 50 MG/ML INJ (BENADRYL) IVP PRN; +morphine PCA 100 MG/100 ML BAG IV PRN
[2022-02-28] MEDS ORDERED: CEFUROXIME INJECTION 1,500 MG in NS (IVPB) 50 ML IV ONE (08:00)
[2022-02-28] MEDS ORDERED: INTRA-ARTICULAR IU ONE ×5 (08:15)
[2022-02-28] MEDS ORDERED: ROPIVACAINE 5MG/ML 30ML VIAL ONE (08:33)
[2022-02-28] MEDS ORDERED: proPOfol 200 MG/20 ML (DIPRIVAN) VIAL IV ONE (08:33)
[2022-02-28] MEDS ORDERED: LIDOCAINE PF 2% 5 ML (XYLOCAINE) VIAL ONE (08:33)
[2022-02-28] MEDS ORDERED: MIDAZOLAM 2 MG/2 ML (VERSED) VIAL ONE (08:33)
[2022-02-28] MEDS ORDERED: fentaNYL INJ 100 MCG/2 ML AMP ONE ×2 (08:33→09:37)
[2022-02-28] MEDS: LACTATED RINGERS 1,000 ML IV PRN ×2 (08:59→09:52)
--- NOTE | 2022-02-28 09:02 | Progress Note-Post Operative ---
Post-Operative Progess Note Surgeon (s)/Print Support Specialist (s) Surgeon CHELITA DAS MD Print Support Specialist: Quoc Talamantes Pre-Operative Diagnosis RIGHT KNEE primary OSTEOARTHRITIS Post-Operative Diagnosis RIGHT KNEE primary OSTEOARTHRITIS Procedure & Operative Findings Date of Procedure 02/28/22 Procedure Performed/Findings right total knee arthroplasty Anesthesia Type GETA Estimated Blood Loss Estimated blood loss (mL): minimal Specimens/Packing Specimens Removed none Packing: none CHELITA DAS MD Feb 28, 2022 09:02
--- NOTE | 2022-02-28 09:04 | Progress Note-Pre Operative ---
Pre-Operative Progress Note Date of Available H&P: Feb 21, 2022 Date H&P Reviewed: Feb 28, 2022 Time H&P Reviewed: 07:11 Changes from last HP none Pre-Operative Diagnosis: right knee primary osteoarthritis CHELITA DAS MD Feb 28, 2022 09:04
--- NOTE | 2022-02-28 09:06 | D/C HH Face to Face Order ---
D/C Face to Face Orders Reconcile Patient Problems Problems Reviewed?: Yes Instructions for Patient [address] Teres[facility] Glip[facility], Patient Instructions/FollowUp: three weeks Physician to follow Patient: three weeks Discharge Diet for Home: Regular Diet Patient Data-Allergies,Ht & Wt Patient Allergies: Coded Allergies: Penicillins (Verified Allergy, Unknown, has received cephalosporins w/o issue, 02/21/22) per order on 01/27 patient has received Cephalosporins w/o issue ciprofloxacin (Verified Allergy, Unknown, 02/21/22) clindamycin (Verified Allergy, Unknown, 02/21/22) sulfamethoxazole (Unverified Allergy, Unknown, NAUSEA, 02/21/22) trimethoprim (Unverified Allergy, Unknown, NAUSEA, 02/21/22) Height (Feet): 5 Height (Inches): 8.00 Weight (Pounds): 175 Weight (Ounces): 0.0 Home Health Need/Face to Face Date of Face to Face: Feb 28, 2022 Clinical Findings: Muscle weakness, Pain with ambulation, Unsteady gait I have seen Pt [id number]: Yes Discharged To: Home Diagnosis/Conditions: right total knee arthroplasty Patient is Homebound due to: Muscle weakness, Pain w/ambulation Homebound Status Due to the above stated illness, injury or surgical procedure (medical condition or diagnosis) and associated clinical findings, the patient is homebound because of his/her inability to leave home except with aid of a supportive device and/or person AND leaving the home requires a considerable and taxing effort or is medically contraindicated. Pt req the following assistanc: [facility] Nursing Orders Home Health Services Order: Physical Therapy-Evaluate & Treat DC right knee jaycee and apply steri strips 03/14/22 Home Health Infusion Therapy Line Start Date: Feb 28, 2022 Therapy Orders Therapy Orders: Physical Therapy, PT to assess for OT Therapy Specific Orders: Eval assistive deivces, Teach enviro modifications/safety, Gait training, Increase strength/endurance, Provider maintenance therapy, Restore ROM Certify Stmt I certify that this patient is under my care and that I, a nurse practitioner or a physician; a classroom assistant working with me, had a face to face encounter that - meets the physician face to face encounter requirements with this patient as dated. CHELITA DAS MD Feb 28, 2022 09:06
[2022-02-28] MEDS ORDERED: TRANEXAMIC ACID 100 MG/ML 10 ML INJECTION ONE (09:43)
[2022-02-28] MEDS ORDERED: LABETALOL HCL 20 MG/4 ML VIAL ONE (09:49)
[2022-02-28] MEDS ORDERED: HYDROmorphone 2 MG/ML VIAL (DILAUDID) ONE (10:44)
[2022-02-28] MEDS ORDERED: PROMETHAZINE INJ 25 MG/ML (PHENERGAN) AMP IVP ONE (10:45)
[2022-02-28] MEDS ORDERED: HYDROmorphone 2 MG/ML VIAL (DILAUDID) IV ONE (10:45)
[2022-02-28] MEDS ORDERED: morphine INJ 10 MG/ML 1ML (SYR OR VIAL) IVP ONE (10:45)
[2022-02-28] MEDS ORDERED: MEPERIDINE (DEMEROL) INJ 50 MG/ML IVP ONE (10:45)
[2022-02-28] MEDS ORDERED: ONDANSETRON 4 MG/2 ML (SDV) Z0FRAN IVP PRN (10:45)
--- NOTE | 2022-02-28 11:48 | Progress Note ---
Standard Progress Note Progress Notes/Assess & Plan Date Seen by a Provider: Feb 28, 2022 Time Seen by a Provider: 11:46 Progress/Assessment & Plan post op check no complaints radiographs--HW well positioned without fracture RLE--2 plus DP pulse with brisk cap refill intact DF and PF of toes and ankle sensation intact to light touch throughout s/p RKTA mobilize as able CHELITA DAS MD Feb 28, 2022 11:48
[2022-02-28] MEDS: NS IV 1000 ML 1,000 ML IV SCH ×2 (12:18→20:24)
[2022-02-28] MEDS: SENNA W/DOCUSATE (SENOKOT S) TABLET PO SCH ×2 (13:43→20:24)
--- NOTE | 2022-02-28 13:43 | Physical Therapy Evaluation ---
PT Evaluation-General Medical Diagnosis Admission Date Feb 28, 2022 at 07:53 Medical Diagnosis: right TKA Onset Date: Feb 28, 2022 Therapy Diagnosis Therapy Diagnosis: impaired mobility, ROM Height/Weight Height (Feet): 5 Height (Inches): 8.00 Weight (Pounds): 175 Weight (Ounces): 0.0 Weight Bear Status Right Lower Extremity: Right Weight Bearing/Tolerated Referral Physician: Manuel Reason for Referral: Evaluation/Treatment Medical History Additional Medical History PAST MEDICAL HISTORY: DVT, hyperlipidemia, hypertension, osteoarthritis, MRSA, ulcers, hepatitis B, reflux, back pain, coronary artery disease, migraines, benign prostatic hypertrophy. PAST SURGERIES: Toe, left leg, left shoulder, herniorrhaphy, wrist, tonsillectomy, left knee, cataract, left total knee replacement, right leg plate, heart catheterization, EGD and colonoscopy. Reviewed History: Yes Social History Current Living Status: Spouse Entry Into Home: Stairs With Railing PT Steps Into Home: 4 Prior Prior Level of Function SCALE: Activities may be completed with or without assistive devices. 7-Jntrbhwspp-gzazagd completes the activity by him/herself with no assistance from a helper. 5-Set-up or Clean-up Assistance-helper sets up or cleans up; patient completes activity. [place] assists only prior to or following the activity. 4-Supervision or Touching Assistance-helper provides verbal cues and/or touching/steadying and/or contact guard assistance as patient completes activity. Assistance may be provided throughout the activity or intermittently. 3-Partial/Moderate Assistance-helper does LESS THAN HALF the effort. [place] lifts, holds or supports trunk or limbs, but provides less than half the effort. 2-Substantial/Maximal Assistance-helper does MORE THAN HALF the effort. [place] lifts or holds trunk or limbs and provides more than half the effort. 9-Ucheajhnu-iqrbip does ALL the effort. Patient does none of the effort to complete the activity. Or, the assistance of 2 or more helpers is required for the patient to complete the activity. If activity was not attempted, code reason: 7-Patient Refused. 9-Not Applicable-not attempted and the patient did not perform the activity before the current illness, exacerbation or injury. 10-Not Attempted due to Environmental Limitations-(lack of equipment, weather restraints, etc.). 88-Not Attempted due to Medical Conditions or Safety Concerns. Bed Mobility: 6 Transfers (B,C,W/C): 6 Gait: 6 Stairs: 6 Indoor Mobility (Ambulation): Independent Stairs: Independent PT Evaluation-Current Subjective Patient in bed pre tx, patient is very lethargic, doesn't really open his eyes but can give one or two word answers to questions, continually falls asleep and needs to be reawakened, mumbles. Has 6/10 pain in right knee. Pt/Family Goals none stated Objective Patient Orientation: Person, Confused, Unable to Assess, Mumbles Attachments: Oxygen, IV ROM/Strength ROM Lower Extremities right knee extension +3 degrees, flexion 50 degrees Sensory Hearing: Functional Sensation Lower Extremities patient's right foot is still numb Treatment right side TKA protocol x10 (AP, QS, HS, SAQ, SLR), all exercises were AAROM except for quad sets Assessment/Needs Patient in bed post tx with nurse call, phone, tray,all needs met. Patient moaned in pain during all exercises but still didn't open eyes, still needed to be woke up even though he was moaning. Patient is not safe to try to get out of bed and ambulate at this time. Rehab Potential: Fair PT Jail Goals Jail Goals PT Roof Bolting Coal Miner Goals Time Frame: Mar 07, 2022 Roll Left & Right (QC): 4 Sit to Lying (QC): 4 Lying-Sitting on Side/Bed(QC): 4 Sit to Stand (QC): 4 Chair/Eri-kt-Ganuo Xfer(QC): 4 Walk 10 feet (QC): 4 Walk 50ft with 2 Turns (QC): 4 Walk 150 ft (QC): 4 1 Step (curb) (QC): 4 4 Steps (QC): 4 PT Plan Problem List Problem List: Activity Tolerance, Functional Strength, Safety, Balance, Gait, Transfer, Bed Mobility, ROM Treatment/Plan Treatment Plan: Continue Plan of Care Treatment Plan: Bed Mobility, Education, Functional Activity Osmar, Functional Strength, Gait, Safety, Therapeutic Exercise, Transfers Treatment Duration: Mar 07, 2022 Frequency: 11 times per week Estimated Hrs Per Day: .25 hour per day Patient and/or Family Agrees t: Yes Safety Risks/Education Patient Education: Correct Positioning, Safety Issues Teaching Recipient: Patient Teaching Methods: Demonstration, Discussion Response to Teaching: Reinforcement Needed Discharge Recommendations Plan Patient will perform bed mobility and transfer training, balance and endurance training, functional strengthening, stair training, gait training, and education, to improve functional mobility and independence at home. Therapy Discharge Recommendati: Home & Family, Post Acute PT Time Time In: 1320 Time Out: 1330 DATE: Feb 28, 2022 Total Billed Treatment Time: 10 Total Billed Treatment 1 visit EVL EVER BEST PT Feb 28, 2022 13:43
--- NOTE | 2022-02-28 17:03 | Diagnostic Imaging Report ---
INDICATION: Postoperative. TECHNIQUE: 2 post operative radiographs of the knee and 40 1:00 AM CORRELATION STUDY: None FINDINGS: There are postsurgical changes of a total knee arthroplasty. Alignment is anatomic. Installed hardware appearing unremarkable. Overlying soft tissue gas collections and skin jaycee are present. IMPRESSION: Postsurgical changes of a right total knee replacement. Dictated by: Dictated on workstation # [id number]
[2022-02-28] MEDS: CEFUROXIME INJECTION 750 MG in NS (IVPB) 50 ML IV SCH (17:32)
[2022-02-28] MEDS: oxyCODONE/APAP 5/325MG (PERCOCET 5) TABLET PO PRN (18:27)
--- NOTE | 2022-02-28 18:43 | OPERATIVE REPORT ---
DATE OF SERVICE: 02/28/2022 PREOPERATIVE DIAGNOSIS: Right knee primary osteoarthritis. POSTOPERATIVE DIAGNOSIS: Right knee primary osteoarthritis. PROCEDURE: Right total knee arthroplasty. SURGEON: Dr. Das. [facility] [employer]: Quoc Jackson, who assisted throughout the procedure and closed the incision. ANESTHESIA: General endotracheal. ANESTHESIOLOGIST: Rudolph Pena CRNA. TOURNIQUET TIME: Approximately 60 minutes at 300 mmHg. ESTIMATED BLOOD LOSS: Minimal. DRAINS: None. COMPLICATIONS: None. POSTOPERATIVE PLAN: Routine total knee arthroplasty protocol. MATERIALS: MicroPort cemented size 6 femur, cemented size 6 tibia with 10 mm insert and cemented size 35 patellar button. STATEMENT OF MEDICAL NECESSITY: The patient is a 76-year-old gentleman with longstanding right knee pain. Radiographs revealed severe medial and patellofemoral arthrosis. He had undergone treatment with injections and anti-inflammatories without relief. Due to functional impairment and failure to improve with conservative measures, the patient elected to proceed with surgical intervention. DESCRIPTION OF PROCEDURE: After risks and benefits of the procedure were discussed and questions were answered and informed consent was signed and placed on the chart, the operative site was confirmed in the preoperative holding area and initialed by surgeon. The patient was then transported to the operating room. After adequate levels of general endotracheal anesthetic was obtained, a timeout was called, confirming the operative site. The right lower extremity was prepped and draped in the usual sterile fashion. With the leg elevated and the knee flexed, the tourniquet was inflated to 300 mmHg. Standard anterior approach was utilized. Hemostasis was obtained with cautery. A medial parapatellar arthrotomy was performed, leaving a 1 cm cuff on the patella for later reattachment. A portion of the fat pad was resected. The ACL was resected. A subperiosteal release was performed on the proximal medial tibia, being careful to stay on the bony surface. Intramedullary guide was passed into the femoral canal. The distal cutting block was placed and distal cut was made. The femur was sized to a size 6. The 6 cutting block was placed parallel to the epicondylar axis and cuts were made from posterior to anterior. A subperiosteal release was then carefully performed on the posterior distal femur, being careful to stay on the bony surface. The intramedullary guide was then passed into the tibia. The cutting block was placed. The drop allison transected the intermalleolar axis and the cut was made. The tibia was sized to a size 6. The 6 cutting block was placed and the drop allison transected the intramedullary axis. This was then prepared with the drill and keel punch. The femoral trial was placed and the trochlear cut was made. The 10 mm insert was placed. The patella was then prepared by resecting 10 mm off the undersurface. The peg guide was placed and the peg holes were drilled. The 35 trial was placed. The knee was taken through range of motion. The patella tracked well. There was no anterior/posterior or medial/lateral laxity in flexion or extension. Full extension was easily obtained, 120 degrees of flexion with gravity was easily obtained. The trials were removed. The joint was irrigated with pulse lavage. Periarticular block was placed in the posterior capsule, medial and lateral retinaculum extensor mechanism subcutaneous tissues, bone ends were irrigated and dried and the tibial baseplate was cemented into position. Excessive cement was removed. The superior surface was irrigated and the polyethylene insert was placed. The distal femur was irrigated and dried and the femoral prosthesis was cemented into position. Excessive cement was removed. The knee was brought out into full extension until the cement had cured. The undersurface of the patella was irrigated and dried. The patellar button was cemented into position. Excessive cement was removed. Once the cement had cured, the knee was taken through range of motion. Full extension was easily obtained, 120 degrees of flexion with gravity was easily obtained. The patella tracked well. There was no anterior/posterior or medial/lateral laxity in flexion or extension. The joint was further irrigated with pulse lavage. The arthrotomy was closed with #2 [place] in wxjjzv-qa-qdxky interrupted fashion. The knee was flexed. The repair was stable. Subcutaneous tissues were irrigated using a total of 6 liters throughout the procedure. The 0 Vicryl was used for the deep subcutaneous layer, 2-0 Vicryl for the superficial subcutaneous layers and jaycee used on the skin. Sterile dressing was applied. The tourniquet was deflated and the patient was transferred to the recovery room awake and in stable condition. Job ID: [id number] DocumentID: [id number] Dictated Date: 02/28/2022 10:43:02 Sales Planner Date: 02/28/2022 18:41:00 Dictated By: CHELITA DAS MD
[2022-03-01] VITALS: BP 130/76
[2022-03-01] MEDS: NS IV 1000 ML 1,000 ML IV SCH ×2 (00:26→12:48)
[2022-03-01] MEDS: CEFUROXIME INJECTION 750 MG in NS (IVPB) 50 ML IV SCH (00:26)
[2022-03-01 04:00] VITALS: BP 132/70
[2022-03-01 04:50] LABS: HEMOGLOBIN 10.9 g/dL (13.3-17.7)
[2022-03-01] MEDS ORDERED: MULTIVIT W/MINERALS TAB (THERAGRAN M) PO SCH (07:00)
--- NOTE | 2022-03-01 07:56 | Progress Note ---
Standard Progress Note Progress Notes/Assess & Plan Date Seen by a Provider: Mar 01, 2022 Time Seen by a Provider: 07:55 Progress/Assessment & Plan post op check no complaints radiographs--HW well positioned without fracture RLE--2 plus DP pulse with brisk cap refill intact DF and PF of toes and ankle sensation intact to light touch throughout s/p RKTA mobilize as able Final Diagnosis feeling better today Vital Signs Date Time Temp Pulse Resp B/P (MAP) Pulse Ox O2 Delivery O2 Flow Rate FiO2 03/01/22 04:00 36.7 68 18 132/70 (90) 94 Room Air 03/01/22 00:00 36.8 68 18 130/76 (94) 95 Room Air 02/28/22 21:00 95 Room Air 02/28/22 19:22 36.9 70 19 135/74 (94) 95 Room Air 02/28/22 15:12 36.4 64 19 138/81 (100) 93 Room Air 02/28/22 12:02 36.6 89 16 140/75 (96) 92 Room Air 02/28/22 11:45 Nasal Cannula 3.00 02/28/22 11:45 36.5 20 131/74 (93) 95 Nasal Cannula 3.00 02/28/22 11:40 20 130/79 (96) 94 Nasal Cannula 3.00 02/28/22 11:30 20 130/79 (96) 94 Room Air 02/28/22 11:30 Room Air 02/28/22 11:20 20 141/81 (101) 97 OxyMask 4.00 02/28/22 11:15 OxyMask 6.00 02/28/22 11:10 20 141/81 (101) 97 OxyMask 4.00 02/28/22 11:00 OxyMask 8.00 02/28/22 11:00 20 174/93 (120) 98 OxyMask 8.00 02/28/22 10:50 20 174/93 (120) 98 OxyMask 8.00 02/28/22 10:45 OxyMask 8.00 02/28/22 10:40 20 160/91 (114) 97 OxyMask 8.00 02/28/22 10:38 36.5 20 128/76 (93) 100 OxyMask 8.00 02/28/22 10:38 OxyMask 8.00 02/28/22 08:15 97 Room Air I & O 03/01/22 07:00 Intake Total 2150 ml Output Total 2600 ml Balance -450 ml Laboratory Tests Test 03/01/22 04:32 Range/Units Hemoglobin 10.9 L 13.3-17.7 g/dL Hematocrit 32 L 40-54 % RLE--dressing intact no calf tenderness intact DF and PF of toes and ankle s/p RTKA PT/OT CHELITA DAS MD Mar 01, 2022 07:56
--- NOTE | 2022-03-01 08:19 | Anesthesia-General Post-Op ---
General Patient Condition Mental Status/LOC: Same as Preop Cardiovascular: Satisfactory Nausea/Vomiting: Absent Respiratory: Satisfactory Pain: Controlled Complications: Absent Post Op Complications Complications None Follow Up Care/Instructions Patient Instructions None needed. Anesthesia/Patient Condition Patient Condition Patient is doing well, no complaints, stable vital signs, no apparent adverse anesthesia problems. No complications reported per nursing. D/C home per [facility] Criteria: Yes SARAH VILLAR CRNA Mar 01, 2022 08:19
[2022-03-01] MEDS: oxyCODONE/APAP 5/325MG (PERCOCET 5) TABLET PO PRN ×5 (08:21→19:46)
[2022-03-01] MEDS: ASPIRIN E.C. 81 MG (ECOTRIN) TAB PO SCH (08:21)
[2022-03-01] MEDS: SENNA W/DOCUSATE (SENOKOT S) TABLET PO SCH ×2 (08:21→19:41)
[2022-03-01] MEDS: ENOXAPARIN INJECTION 30 MG/0.3 ML SYR SC SCH ×2 (08:21→19:41)
[2022-03-01 08:32] VITALS: BP 155/88
--- NOTE | 2022-03-01 10:16 | Physical Therapy Daily Note ---
PT Daily Note-Current Subjective Patient agrees to PT. Pain Numeric Pain Scale: 8 Location: Right Location Body Site: Knee Pain Description: Acute Section J - Health Conditions 1. Rarely or not at all 2. Occasionally 3. Frequently 4. Almost constantly 8. Unable to answer Pain Effect on Sleep: 3 Pain Interference with Therapy: 3 Pain Interference w/Day-to-Day: 3 Mental Status Patient Orientation: Normal For Age Attachments: Polar Pack, IV Transfers SCALE: Activities may be completed with or without assistive devices. 5-Yxonnmhjnt-iylrdrw completes the activity by him/herself with no assistance from a helper. 5-Set-up or Clean-up Assistance-helper sets up or cleans up; patient completes activity. [place] assists only prior to or following the activity. 4-Supervision or Touching Assistance-helper provides verbal cues and/or to uching/steadying and/or contact guard assistance as patient completes activity. Assistance may be provided throughout the activity or intermittently. 3-Partial/Moderate Assistance-helper does LESS THAN HALF the effort. [place] lifts, holds or supports trunk or limbs, but provides less than half the effort. 2-Substantial/Maximal Assistance-helper does MORE THAN HALF the effort. [place] lifts or holds trunk or limbs and provides more than half the effort. 1-Fgmnzsnku-afcwxg does ALL the effort. Patient does none of the effort to complete the activity. Or, the assistance of 2 or more helpers is required for the patient to complete the activity. If activity was not attempted, code reason: 7-Patient Refused. 9-Not Applicable-not attempted and the patient did not perform the activity before the current illness, exacerbation or injury. 10-Not Attempted due to Environmental Limitations-(lack of equipment, weather restraints, etc.). 88-Not Attempted due to Medical Conditions or Safety Concerns. Lying to Sitting/Side of Bed(Q: 4 Sit to Stand (QC): 4 Chair/Mtu-gb-Zzbba Xfer(QC): 4 Weight Bearing Right Lower Extremity: Right Weight Bearing/Tolerated Gait Training Distance: 175' Walk 10 feet (QC): 4 Walk 50 ft with 2 Turns(QC): 4 Walk 150 ft (QC): 4 Gait Assistive Device: FWW very antalgic with minimal weight bearing through right LE/VC's for gait sequence and weight bearing right LE Exercises Supine Ex: Ankle pumps, Quad Set, Heel Slides, Straight leg raise Supine Reps: 15 Seated Therapy Exercises: Long arc quads Seated Reps: 15 Assessment Patient up in recliner with needs met. Patient has had pain pill and HYDROLOGICAL TECHNICAL OFFICER with minimal right knee pain relief per patient report. RN notified. PT to increase activity as tolerated by patient. PT Half-Way Goals Half-Way Goals PT Half-Way Goals Time Frame: Mar 07, 2022 Roll Left & Right (QC): 4 Sit to Lying (QC): 4 Lying-Sitting on Side/Bed(QC): 4 Sit to Stand (QC): 4 Chair/Edl-be-Pvfpe Xfer(QC): 4 Walk 10 feet (QC): 4 Walk 50ft with 2 Turns (QC): 4 Walk 150 ft (QC): 4 1 Step (curb) (QC): 4 4 Steps (QC): 4 PT Plan Treatment/Plan Treatment Plan: Continue Plan of Care Treatment Plan: Bed Mobility, Education, Functional Activity Osmar, Functional Strength, Gait, Safety, Therapeutic Exercise, Transfers Treatment Duration: Mar 07, 2022 Frequency: 11 times per week Estimated Hrs Per Day: .25 hour per day Patient and/or Family Agrees t: Yes Time Time In: 855 Time Out: 920 DATE: Mar 01, 2022 Total Billed Treatment Time: 25 Total Billed Treatment 1 visit EX 13 min GT 12 min JHON OLIVER PT Mar 01, 2022 10:16
--- NOTE | 2022-03-01 11:29 | Occupational Therapy Eval ---
OT Evaluation-General/PLF Medical Diagnosis Admission Date Feb 28, 2022 at 07:53 Medical Diagnosis: right TKA Onset Date: Feb 28, 2022 Therapy Diagnosis Therapy Diagnosis: decreased ADL status Height/Weight Height (Feet): 5 Height (Inches): 8.00 Weight (Pounds): 175 Weight (Ounces): 0.0 Precautions Precautions/Isolations: Standard Precautions Referral Physician: Manuel Referral Reason: Evaluation/Treatment Medical History Additional Medical History DVT, HTN, OA, MRSA, Hep B, CAD, migraine, BPH, L shoulder surgery, wrist surgery, R leg plate. Current History s/p R TKA 02/28/22 Social History Current Living Status: Spouse Entry Into Home: Stairs With Railing Steps Into Home: 4 ADL-Prior Level of Function SCALE: Activities may be completed with or without assistive devices. 0-Bnisjipius-tgutbgg completes the activity by him/herself with no assistance from a helper. 5-Set-up or Clean-up Assistance-helper sets up or cleans up; patient completes activity. [place] assists only prior to or following the activity. 4-Supervision or Touching Assistance-helper provides verbal cues and/or touching/steadying and/or contact guard assistance as patient completes activity. Assistance may be provided throughout the activity or intermittently. 3-Partial/Moderate Assistance-helper does LESS THAN HALF the effort. [place] lifts, holds or supports trunk or limbs, but provides less than half the effort. 2-Substantial/Maximal Assistance-helper does MORE THAN HALF the effort. [place] lifts or holds trunk or limbs and provides more than half the effort. 4-Hejjiapvh-mjoidz does ALL the effort. Patient does none of the effort to complete the activity. Or, the assistance of 2 or more helpers is required for the patient to complete the activity. If activity was not attempted, code reason: 7-Patient Refused. 9-Not Applicable-not attempted and the patient did not perform the activity before the current illness, exacerbation or injury. 10-Not Attempted due to Environmental Limitations-(lack of equipment, weather restraints, etc.). 88-Not Attempted due to Medical Conditions or Safety Concerns. ADL PLOF Comments Pt reports IND with ADLs and functional mobility at PLOF, no AD. He occasionally finds a stick to use as a walking stick while outside. Self Care: Independent Functional Cognition: Independent DME/Equipment: Bath Chair, Shower OT Current Status Subjective Pt up in recliner, agreeable to OT Tx. Rates pain in R knee 12/21. Pt lives with spouse and granddaughter who has disabilities. Pt feels like his would be able to provide physical assistance if needed upon discharging. Mental Status/Objective Patient Orientation: Person, Place, Time, Situation Attachments: IV Current Hand Dominance: Right Upper Extremity ROM WFL Upper Extremity Strength WFL ADL-Treatment Eating (QC): 6 Oral Hygiene (QC): 5 Shower/Bathe Self (QC): 3 (Min A with washing BLE lower legs/feet.) On/Off Footwear (QC): 3 (Pt requires mod A with R footwear) Other Treatments Pt in recliner, agreeable to OT evaluation/tx. Pt provided information about PLOF and home set up. Pt attempted footwear, assistance required with RLE. Pt declined toileting and other ADLS. Based on pt's CLOF, pt would require some assistance with washing BLEs lower legs/feet in the shower, and some assistance with threading RLE into pants. OT educated pt on purpose/benefit of OT with OT POC, he verbalized understanding but declined further tx at this time due to pain. Post tx, pt in recliner, call light in reach and all needs met. Education OT Patient Education: Correct positioning, Energy conservation, Modified ADL techniques, Progress toward Goal/Update tx plan, Purpose of tx/functional activities, Rehab process Teaching Recipient: Patient Teaching Methods: Discussion Response to Teaching: Verbalize Understanding OT Miniature Set Designer Goals Miniature Set Designer Goals Time Frame: Mar 09, 2022 Eating (QC): 6 Oral Hygiene (QC): 6 Toileting Hygiene (QC): 6 Shower/Bathe Self (QC): 4 Upper Body Dressing (QC): 5 Lower Body Dressing (QC): 4 On/Off Footwear (QC): 4 Additional Goals: 1-Demonstrate ADL Tasks, 2-Verbalize Understanding, 3- ImproveStrength/Osmar 1=Demonstrate adherence to instructed precautions during ADL tasks. 2=Patient will verbalize/demonstrate understanding of assistive devices/modifications for ADL. 3=Patient will improve strength/tolerance for activity to enable patient to perform ADL's. OT Education/Plan Problem List/Assessment Assessment: Decreased Activ Tolerance, Decreased UE Strength, Impaired Funct Balance, Impaired I ADL's, Impaired Self-Care Skills Discharge Recommendations Plan/Recommendations: Continue POC Treatment Plan/Plan of Care Patient would benefit from OT for education, treatment and training to promote independence in ADL's, mobility, safety and/or upper extremity function for ADL's. Plan of Care: ADL Retraining, Functional Mobility, UE Funct Exercise/Act Treatment Duration: Mar 09, 2022 Frequency: 3 times per week (3-5 times per week) Estimated Hrs Per Day: .25 hour per day Agreement: Yes Rehab Potential: Fair Time Start Time: 10:13 Stop Time: 10:22 DATE: Mar 01, 2022 Total Time Billed (hr/min): 9 Billed Treatment Time 1, CIERRA JENNINGS OT Mar 01, 2022 11:29
[2022-03-01 12:13] VITALS: BP 143/86
--- NOTE | 2022-03-01 13:59 | Physical Therapy Daily Note ---
PT Daily Note-Current Subjective Patient agrees to PT. Pain Numeric Pain Scale: 7 Location: Right Location Body Site: Knee Pain Description: Acute Section J - Health Conditions 1. Rarely or not at all 2. Occasionally 3. Frequently 4. Almost constantly 8. Unable to answer Pain Effect on Sleep: 3 Pain Interference with Therapy: 3 Pain Interference w/Day-to-Day: 3 Mental Status Patient Orientation: Normal For Age Attachments: IV Transfers SCALE: Activities may be completed with or without assistive devices. 9-Ejhatfthjy-rftbety completes the activity by him/herself with no assistance from a helper. 5-Set-up or Clean-up Assistance-helper sets up or cleans up; patient completes activity. [place] assists only prior to or following the activity. 4-Supervision or Touching Assistance-helper provides verbal cues and/or touching/steadying and/or contact guard assistance as patient completes activity. Assistance may be provided throughout the activity or intermittently. 3-Partial/Moderate Assistance-helper does LESS THAN HALF the effort. [place] lifts, holds or supports trunk or limbs, but provides less than half the effort. 2-Substantial/Maximal Assistance-helper does MORE THAN HALF the effort. [place] lifts or holds trunk or limbs and provides more than half the effort. 9-Rxkvvvgju-odyvna does ALL the effort. Patient does none of the effort to complete the activity. Or, the assistance of 2 or more helpers is required for the patient to complete the activity. If activity was not attempted, code reason: 7-Patient Refused. 9-Not Applicable-not attempted and the patient did not perform the activity before the current illness, exacerbation or injury. 10-Not Attempted due to Environmental Limitations-(lack of equipment, weather restraints, etc.). 88-Not Attempted due to Medical Conditions or Safety Concerns. Lying to Sitting/Side of Bed(Q: 4 Sit to Stand (QC): 4 Chair/Bnd-qs-Gzdnn Xfer(QC): 4 Weight Bearing Right Lower Extremity: Right Weight Bearing/Tolerated Gait Training Distance: 250' Walk 10 feet (QC): 4 Walk 50 ft with 2 Turns(QC): 4 Walk 150 ft (QC): 4 Gait Assistive Device: FWW slow, antalgic gait sequence Exercises Supine Ex: Ankle pumps, Quad Set, Heel Slides, Straight leg raise Supine Reps: 15 Seated Therapy Exercises: Long arc quads Seated Reps: 15 Assessment Patient placing more weight through right LE this p.m. PT to increase activity as tolerated by patient. Plan dismissal tomorrow after therapy. PT [facility] Goals [facility] Goals PT Library Science Instructor Goals Time Frame: Mar 07, 2022 Roll Left & Right (QC): 4 Sit to Lying (QC): 4 Lying-Sitting on Side/Bed(QC): 4 Sit to Stand (QC): 4 Chair/Dwg-mn-Htsix Xfer(QC): 4 Walk 10 feet (QC): 4 Walk 50ft with 2 Turns (QC): 4 Walk 150 ft (QC): 4 1 Step (curb) (QC): 4 4 Steps (QC): 4 PT Plan Treatment/Plan Treatment Plan: Continue Plan of Care Treatment Plan: Bed Mobility, Education, Functional Activity Osmar, Functional Strength, Gait, Safety, Therapeutic Exercise, Transfers Treatment Duration: Mar 07, 2022 Frequency: 11 times per week Estimated Hrs Per Day: .25 hour per day Patient and/or Family Agrees t: Yes Time Time In: 1325 Time Out: 1348 DATE: Mar 01, 2022 Total Billed Treatment Time: 23 Total Billed Treatment 1 visit Ex 11 min GT 12 min JHON OLIVER PT Mar 01, 2022 13:59
[2022-03-01 15:17] VITALS: BP 144/71
[2022-03-01 19:15] VITALS: BP 139/81
--- NOTE | 2022-03-01 19:25 | Consultation ---
HPI History of Present Illness: Doing well after surgery. Having hiccups since surgery. is concerning about hypoxia at night and would like him monitored at night. Source: patient, spouse Exam Limitations: no limitations Date seen by provider: Mar 01, 2022 Time Seen by Provider: 11:45 Attending Physician [place] PCP Admitting Physician: Avi Hairston MD Attending Physician: Avi Hairston MD Consult Date of Admission Feb 28, 2022 at 07:53 Home Medications Home Medications Reviewed patient Home Medication Reconciliation performed by pharmacy medication reconciliations training technician and/or nursing. Patients Allergies have been reviewed. Allergies Coded Allergies: Penicillins (Verified Allergy, Unknown, has received cephalosporins w/o issue, 02/21/22) per order on 01/27 patient has received Cephalosporins w/o issue ciprofloxacin (Verified Allergy, Unknown, 02/21/22) clindamycin (Verified Allergy, Unknown, 02/21/22) sulfamethoxazole (Unverified Allergy, Unknown, NAUSEA, 02/21/22) trimethoprim (Unverified Allergy, Unknown, NAUSEA, 02/21/22) MUB-Nbskzn-Aqdidu Hx Patient Social History Smoking Status: Never a Smoker Recent Hopitalizations: No Alcohol Use?: No Have you traveled recently?: No Immunizations Up To Date Tetanus Booster (TDap): Unknown Influenza Vaccine Up-to-Date: Yes; Up-to-Date First/Initial COVID19 Vaccinat: 2020 Second COVID19 Vaccination Ryder: 2020 Third COVID19 Vaccination Date: 2021 Past Medical History HTN Family Medical History Family History: Family history: Cardiovascular disease 19 FATHER G8 BROTHER G8 SISTER Family history: Diabetes mellitus 19 FATHER Parkinson's disease 19 MOTHER No Family History of: Family history: Alzheimer's disease Review of Systems ([facility]) Constitutional: no symptoms reported; No fever, No malaise EENTM: throat pain, other (Hiccups) Respiratory: no symptoms reported; No cough, No dyspnea on exertion, No short of breath Cardiovascular: no symptoms reported; No chest pain, No edema, No palpitations Gastrointestinal: no symptoms reported; No abdominal pain, No constipation, No diarrhea, No nausea, No vomiting Genitourinary: no symptoms reported; No dysuria, No frequency Musculoskeletal: joint pain, muscle pain Skin: no symptoms reported Psychiatric/Neurological: No Symptoms Reported Physical Exam-([facility]) Physical Exam Vital Signs VS - Last 72 Hours, by Label 02/28/22 02/28/22 02/28/22 02/28/22 08:15 10:38 10:38 10:40 Temp 36.5 Resp 20 20 B/P (MAP) 128/76 (93) 160/91 (114) Pulse Ox 97 100 97 O2 Delivery Room Air OxyMask OxyMask OxyMask O2 Flow Rate 8.00 8.00 8.00 02/28/22 02/28/22 02/28/22 02/28/22 10:45 10:50 11:00 11:00 Resp 20 20 B/P (MAP) 174/93 (120) 174/93 (120) Pulse Ox 98 98 O2 Delivery OxyMask OxyMask OxyMask OxyMask O2 Flow Rate 8.00 8.00 8.00 8.00 02/28/22 02/28/22 02/28/22 02/28/22 11:10 11:15 11:20 11:30 Resp 20 20 B/P (MAP) 141/81 (101) 141/81 (101) Pulse Ox 97 97 O2 Delivery OxyMask OxyMask OxyMask Room Air O2 Flow Rate 4.00 6.00 4.00 02/28/22 02/28/22 02/28/22 02/28/22 11:30 11:40 11:45 11:45 Temp 36.5 Resp 20 20 20 B/P (MAP) 130/79 (96) 130/79 (96) 131/74 (93) Pulse Ox 94 94 95 O2 Delivery Room Air Nasal Cannula Nasal Cannula Nasal Cannula O2 Flow Rate 3.00 3.00 3.00 02/28/22 02/28/22 02/28/22 02/28/22 12:02 15:12 19:22 21:00 Temp 36.6 36.4 36.9 Pulse 89 64 70 Resp 16 19 19 B/P (MAP) 140/75 (96) 138/81 (100) 135/74 (94) Pulse Ox 92 93 95 95 O2 Delivery Room Air Room Air Room Air Room Air 03/01/22 03/01/22 03/01/22 03/01/22 00:00 04:00 08:32 09:00 Temp 36.8 36.7 36.7 Pulse 68 68 68 Resp 18 18 18 B/P (MAP) 130/76 (94) 132/70 (90) 155/88 (110) Pulse Ox 95 94 96 96 O2 Delivery Room Air Room Air Room Air Room Air 03/01/22 03/01/22 03/01/22 12:13 15:17 19:15 Temp 37.2 37.0 37.2 Pulse 69 70 88 Resp 18 18 20 B/P (MAP) 143/86 (105) 144/71 (95) 139/81 (100) Pulse Ox 97 96 98 O2 Delivery Room Air Room Air Room Air Capillary Refill : Less Than 3 Seconds General Appearance: WD/WN, no apparent distress HEENT: PERRL/EOMI Neck: non-tender, full range of motion, supple Respiratory: chest non-tender, lungs clear, normal breath sounds, no respiratory distress, no accessory muscle use Cardiovascular: normal peripheral pulses, regular rate, rhythm, no murmur Gastrointestinal: normal bowel sounds, non tender, soft Back: no CVA tenderness, no vertebral tenderness Extremities: no calf tenderness, pedal edema (1+ pitting edema) Neurologic/Psychiatric: tree planter II-XII nml as tested, no motor/sensory deficits, alert, normal mood/affect, oriented x 3 Skin: normal color Lymphatic: no adenopathy Assessment/Plan Assessment/Plan (1) HTN (hypertension) Status: Chronic Assessment & Plan: - Restart home meds Qualifiers: Qualified Codes: I10 - Essential (primary) hypertension (2) Osteoarthritis of right knee Status: Chronic Assessment & Plan: - Pain control per Ortho, thank you for the consultation Qualifiers: Qualified Codes: M17.11 - Unilateral primary osteoarthritis, right knee NABILA INFANTE MD Mar 01, 2022 19:25
[2022-03-01] MEDS ORDERED: CYCLOBENZAPRINE 10 MG (FLEXERIL) TAB PO PRN (21:30)
[2022-03-02 00:01] VITALS: BP 161/97
[2022-03-02] MEDS ORDERED: ACETAMINOPHEN 325 MG TABLET ONE (00:05)
[2022-03-02] MEDS: oxyCODONE/APAP 5/325MG (PERCOCET 5) TABLET PO PRN ×4 (00:07→09:04)
[2022-03-02] MEDS: NS IV 1000 ML 1,000 ML IV SCH (00:08)
[2022-03-02] MEDS ORDERED: ACETAMINOPHEN 325 MG TABLET PO PRN (00:15)
--- NOTE | 2022-03-02 01:14 | DISCHARGE SUMMARY ---
DIAGNOSES: 1. Right knee primary osteoarthritis. 2. Hyperlipidemia. 3. Hypertension. 4. Hepatitis B. 5. Reflux. 6. Back pain. 7. Coronary artery disease. 8. Migraines. 9. Benign prostatic hypertrophy. PROCEDURES: Right total knee arthroplasty. SUMMARY OF HOSPITAL COURSE: This patient is a 76-year-old gentleman who underwent a right total knee arthroplasty on day of admission. Postoperatively, he did well. At time of discharge, his wound was clean and dry. He was tolerating his diet well and tolerating pain with oral pain medication. CONDITION ON DISCHARGE: Good. DISCHARGE DIET: Regular. FOLLOWUP: Followup is in 3 weeks. DISCHARGE MEDICATIONS: Home medications: Aspirin every day and Percocet as needed for pain. Job ID: [id number] DocumentID: [id number] Dictated Date: 03/01/2022 08:02:27 Hospital Pharmacist Date: 03/02/2022 01:12:00 Dictated By: CHELITA DAS MD
[2022-03-02 01:20] VITALS: BP 144/89
[2022-03-02 04:54] VITALS: BP 141/82
[2022-03-02 05:40] LABS: HEMOGLOBIN 10.4 g/dL (13.3-17.7)
--- NOTE | 2022-03-02 06:53 | Progress Note ---
Standard Progress Note Progress Notes/Assess & Plan Date Seen by a Provider: Mar 02, 2022 Time Seen by a Provider: 06:52 Progress/Assessment & Plan post op check no complaints radiographs--HW well positioned without fracture RLE--2 plus DP pulse with brisk cap refill intact DF and PF of toes and ankle sensation intact to light touch throughout s/p RKTA mobilize as able Final Diagnosis no complaints Vital Signs Date Time Temp Pulse Resp B/P (MAP) Pulse Ox O2 Delivery O2 Flow Rate FiO2 03/02/22 04:54 37.3 87 20 141/82 (101) 94 Room Air 03/02/22 01:20 37.7 109 144/89 (107) 94 Room Air 03/02/22 01:00 37.0 03/02/22 00:06 38.0 03/02/22 00:01 38.2 109 20 161/97 (118) 97 Room Air 03/01/22 20:00 Room Air 03/01/22 19:15 37.2 88 20 139/81 (100) 98 Room Air 03/01/22 15:17 37.0 70 18 144/71 (95) 96 Room Air 03/01/22 12:13 37.2 69 18 143/86 (105) 97 Room Air 03/01/22 09:00 96 Room Air 03/01/22 08:32 36.7 68 18 155/88 (110) 96 Room Air I & O 03/02/22 07:00 Intake Total 3192 ml Output Total 2125 ml Balance 1067 ml Laboratory Tests Test 03/02/22 05:25 Range/Units Hemoglobin 10.4 L 13.3-17.7 g/dL Hematocrit 31 L 40-54 % RLE--incision clean and dry no calf tenderness neg Zia's s/p RTKA doing well DC home after PT today CHELITA DAS MD Mar 02, 2022 06:53
[2022-03-02] MEDS ORDERED: morphine INJ 4 MG/ML 1 ML (VIAL/SYRINGE) IVP PRN (07:00)
[2022-03-02 08:28] VITALS: BP 154/91
[2022-03-02] MEDS: ASPIRIN E.C. 81 MG (ECOTRIN) TAB PO SCH (09:02)
[2022-03-02] MEDS: SENNA W/DOCUSATE (SENOKOT S) TABLET PO SCH (09:02)
[2022-03-02] MEDS: ENOXAPARIN INJECTION 30 MG/0.3 ML SYR SC SCH (09:02)
--- NOTE | 2022-03-02 10:21 | Physical Therapy Daily Note ---
PT Daily Note-Current Subjective Patient yells with all mobility and exercise. Pain Numeric Pain Scale: 10-Worst Possible Pain Location: Right Location Body Site: Knee Pain Description: Acute Comment: with meds issued Section J - Health Conditions 1. Rarely or not at all 2. Occasionally 3. Frequently 4. Almost constantly 8. Unable to answer Pain Effect on Sleep: 3 Pain Interference with Therapy: 3 Pain Interference w/Day-to-Day: 3 Mental Status Patient Orientation: Normal For Age Transfers SCALE: Activities may be completed with or without assistive devices. 8-Heoensahkc-nctyhsy completes the activity by him/herself with no assistance from a helper. 5-Set-up or Clean-up Assistance-helper sets up or cleans up; patient completes activity. [place] assists only prior to or following the activity. 4-Supervision or Touching Assistance-helper provides verbal cues and/or touching/steadying and/or contact guard assistance as patient completes activity. Assistance may be provided throughout the activity or intermittently. 3-Partial/Moderate Assistance-helper does LESS THAN HALF the effort. [place] lifts, holds or supports trunk or limbs, but provides less than half the effort. 2-Substantial/Maximal Assistance-helper does MORE THAN HALF the effort. [place] lifts or holds trunk or limbs and provides more than half the effort. 2-Rqqyvdmir-hreuoh does ALL the effort. Patient does none of the effort to complete the activity. Or, the assistance of 2 or more helpers is required for the patient to complete the activity. If activity was not attempted, code reason: 7-Patient Refused. 9-Not Applicable-not attempted and the patient did not perform the activity before the current illness, exacerbation or injury. 10-Not Attempted due to Environmental Limitations-(lack of equipment, weather restraints, etc.). 88-Not Attempted due to Medical Conditions or Safety Concerns. Sit to Lying (QC): 4 Lying to Sitting/Side of Bed(Q: 4 Sit to Stand (QC): 4 Chair/Dlh-zl-Jbwta Xfer(QC): 4 Weight Bearing Right Lower Extremity: Right Weight Bearing/Tolerated Gait Training Distance: 250' Walk 10 feet (QC): 4 Walk 50 ft with 2 Turns(QC): 4 Walk 150 ft (QC): 4 Gait Assistive Device: FWW slow, step to with minimal weight bearing through right LE with continuous VC's by PT to contract quad musculature to allow weight bearing, however, patient unable or refusing to attempt. Stair Training 1 Step (curb) (QC): 7 4 Steps (QC): 7 Exercises Supine Ex: Ankle pumps, Quad Set, Heel Slides, Straight leg raise Supine Reps: 15 (x 2 sets AAROM right LE with patient not alondra quad to perform exercises) Seated Therapy Exercises: Long arc quads Seated Reps: 15 (x 2 sets AAROM right LE with patient unable or refusing to contract quad with continuous yelling ) Assessment Patient yells during session due to right knee pain. Noted edema. Patient tolerated treatment, however, is unable to, or refusing to, weight bear right LE due to pain. Pain medication had been issued by RN prior. Patient to dismiss to home with spouse on this date. Patient adamantly refused to perform stair training and states he has a ramp. PT encouraged/educated patient on importance of performing HEP issued at preop and to continue with exercise program. Patient voiced understanding. PT [facility] Goals Electron Gun Inspector Goals PT Electron Gun Inspector Goals Time Frame: Mar 07, 2022 Roll Left & Right (QC): 4 Sit to Lying (QC): 4 Lying-Sitting on Side/Bed(QC): 4 Sit to Stand (QC): 4 Chair/Zik-co-Uzsvm Xfer(QC): 4 Walk 10 feet (QC): 4 Walk 50ft with 2 Turns (QC): 4 Walk 150 ft (QC): 4 1 Step (curb) (QC): 4 4 Steps (QC): 4 PT Plan Treatment/Plan Treatment Plan: Discontinue PT Treatment Plan: Bed Mobility, Education, Functional Activity Osmar, Functional Strength, Gait, Safety, Therapeutic Exercise, Transfers Treatment Duration: Mar 07, 2022 Frequency: 11 times per week Estimated Hrs Per Day: .25 hour per day Patient and/or Family Agrees t: Yes Time Time In: 730 Time Out: 809 DATE: Mar 02, 2022 Total Billed Treatment Time: 39 Total Billed Treatment 1 visit EX x 2 24 min GT 15 min JHON OLIVER PT Mar 02, 2022 10:20
[2022-03-02 11:10] VITALS: BP 154/91
== END 2022-03-02 11:10 | disposition home health service (06) | DRG 470 ==
LOC: 4TH 07:53 → SURG 07:54 → 4TH 11:45
PROVIDERS: ADMIT Orthopaedic Surgery; ATTEND Orthopaedic Surgery
PROC: 0SRC0J9 Replacement of Right Knee Joint with Synthetic Substitute, Cemented, Open Approach (ICD-10-PCS; principal; 2022-02-28 09:11)
DX: M17.11 Unilateral primary osteoarthritis, right knee (principal); B19.10 Unspecified viral hepatitis B without hepatic coma; E78.5 Hyperlipidemia, unspecified; I10 Essential (primary) hypertension; K21.9 Gastro-esophageal reflux disease without esophagitis; I25.10 Atherosclerotic heart disease of native coronary artery without angina pectoris; N40.0 Benign prostatic hyperplasia without lower urinary tract symptoms; G43.909 Migraine, unspecified, not intractable, without status migrainosus; Z86.718 Personal history of other venous thrombosis and embolism
CPT/HCPCS: 36415; 73560; 85014; 85018; 86850; 86900; 86901

== ENCOUNTER 2022-05-23 05:50 | Outpatient (CLI) | payer MEDICARE, OTHER ==
[~2022-05-23] VITALS: Ht 182.9 cm; Wt 83.9 kg
[~2022-05-23 05:50] MED LIST changes: -ONDANSETRON 4 MG/2 ML (SDV) Z0FRAN IVP PRN; -diphenhydrAMINE 50 MG/ML INJ (BENADRYL) IVP PRN; -morphine PCA 100 MG/100 ML BAG IV PRN
[2022-05-25] MEDS ORDERED: MELO7.5T46 PO (10:06)
[2022-05-25] MEDS ORDERED: PANT40TA52 PO (10:06)
== END 2022-05-25 10:10 | disposition home or self-care (01) ==
LOC: PREOP 05:50
PROVIDERS: ATTEND Surgery
DX: Z01.818 Encounter for other preprocedural examination (principal)

== ENCOUNTER 2022-06-05 07:41 | Day surgery (SDC) | payer MEDICARE, OTHER ==
[~2022-06-05] VITALS: Ht 183 cm; Wt 83.9 kg
[~2022-06-05 07:41] MED LIST changes: +MELO7.5T46 PO; +PANT40TA52 PO
[2022-06-05] MEDS ORDERED: LACTATED RINGERS 1,000 ML IV STA (07:44)
[2022-06-05] MEDS ORDERED: HURRICAINE EXT TUBE (BENZOCAINE) XX PRN (07:45)
--- NOTE | 2022-06-05 08:06 | Progress Note-Pre Operative ---
Pre-Operative Progress Note Date H&P Reviewed: Jun 05, 2022 Time H&P Reviewed: 08:06 History & Physical: H&P Reviewed, Patient Examed, No changes noted Pre-Operative Diagnosis: epigastric pain ROSAURA RINCON DO Jun 05, 2022 08:06
[2022-06-05 08:17] VITALS: BP 142/89
[2022-06-05] MEDS ORDERED: proPOfol 200 MG/20 ML (DIPRIVAN) VIAL IV ONE (09:25)
--- NOTE | 2022-06-05 09:37 | Discharge Inst-Simple/Standard ---
Discharge Inst-Standard Reconcile Patient Problems Problems Reviewed?: Yes Patient Instructions/Follow Up Plan of Care/Instructions/FU: f/u in [address] Majano Activity as Tolerated: Yes Discharge Diet: No Restrictions, Regular Diet ROSAURA MAJANO DO Jun 05, 2022 09:37
[2022-06-05 09:40] VITALS: BP 140/81
--- NOTE | 2022-06-05 09:40 | Progress Note-Post Operative ---
Post-Operative Progess Note Surgeon (s)/Plastic Surgery Manager (s) Surgeon ROSAURA RINCON DO Plastic Surgery Manager: n/a Pre-Operative Diagnosis epigastric pain, dysphagia Post-Operative Diagnosis gastritis Procedure & Operative Findings Date of Procedure 06/05/22 Procedure Performed/Findings EGD with biopsies Anesthesia Type per [facility] Estimated Blood Loss Estimated blood loss (mL): none Specimens/Packing Specimens Removed antrum and GE biopsies ROSAURA RINCON DO Jun 05, 2022 09:40
[2022-06-05 09:45] VITALS: BP_SYST 132; BP_SYST 134; BP_DIAS 80; BP_DIAS 83
[2022-06-05 10:19] VITALS: BP 132/80
--- NOTE | 2022-06-05 11:29 | Anesthesia-General Post-Op ---
MAC Patient Condition Mental Status/LOC: Same as Preop Cardiovascular: Satisfactory Nausea/Vomiting: Absent Respiratory: Satisfactory Pain: Controlled Complications: Absent Post Op Complications Complications None Follow Up Care/Instructions Patient Instructions None needed. Anesthesiology Discharge Order Discharge Order Patient was doing well after the procedure with no complaints, stable vital signs, no apparent adverse anesthesia problems. No complications reported per nursing. KARLA JOHNSON DO Jun 05, 2022 11:29
--- NOTE | 2022-06-05 16:18 | OPERATIVE REPORT ---
DATE OF SERVICE: 06/05/2022 PREOPERATIVE DIAGNOSES: Epigastric abdominal pain. POSTOPERATIVE DIAGNOSES: Slight gastritis. PROCEDURES: EGD with biopsies. SURGEON: Rosaura Majano DO ANESTHESIA: Per MD. ESTIMATED BLOOD LOSS: None. COMPLICATIONS: None. INDICATIONS: The patient is a 77-year-old male epigastric abdominal pain. He understands risks and benefits of procedure and wished to proceed. Consent was signed in chart. DESCRIPTION OF PROCEDURE: The patient was taken to endoscopy suite, placed in left lateral recumbent position. Timeout was performed. Scope was inserted in the mouth, down the esophagus, stomach, into the duodenum without difficulty. No polyps, masses or ulcerations within the duodenum. Scope was slowly retracted back into stomach where it was further insufflated. Slight evidence of gastritis present. Biopsy of the antrum was obtained. Scope was retroflexed noting no other pathology. Scope was returned to its normal position, slowly withdrawn until distal esophagus. Biopsy of GE junction was obtained. No polyps, masses or ulcerations. Scope was slowly retracted back until completely removed, noting no other pathology. The patient tolerated the procedure well, no complications, taken to recovery room in stable condition. RECOMMENDATIONS: The patient will continue on Protonix and Carafate. Await biopsy results. Further recommendation pending. Job ID: [id number] DocumentID: [id number] Dictated Date: 06/05/2022 09:38:36 Supply Controller Date: 06/05/2022 16:16:00 Dictated By: ROSAURA MAJANO DO
== END 2022-06-05 10:20 | disposition home or self-care (01) ==
LOC: ENDO 07:41
PROVIDERS: ATTEND Surgery
DX: K29.70 Gastritis, unspecified, without bleeding (principal); K31.89 Other diseases of stomach and duodenum; Z79.899 Other long term (current) drug therapy
CPT/HCPCS: 88305